=== PATIENT | male | born 1950 | race Caucasian/White ===

== ENCOUNTER → 2018-03-02 14:12 | Outpatient (CLI) | payer MEDICARE, OTHER, SELFPAY ==
--- NOTE | 2018-03-02 14:15 | DI.RAD.S_ITS ---
PROCEDURE: XR CERVICAL SPINE 2V OR 3V INDICATIONS: neck pain and paresthesias TECHNIQUE: 4 view(s) of the cervical spine were acquired. COMPARISON: None. FINDINGS: Bones: No fractures or dislocations to the T1 level. The lateral masses of C1 appear intact on the odontoid view. No suspicious bony lesions. Loss of lordosis which could be related to muscle spasm, rigidity or simply positional. Grade 1 spondylolisthesis C2-C3. Multilevel disc degeneration, moderate to severe at the C6-C7 and C7-T1 levels. Mild multilevel uncovertebral hypertrophy. Soft tissues: No prevertebral soft tissue swelling. Vascular calcifications indicate atherosclerosis. IMPRESSION: Loss of lordosis and multilevel degenerative change. Dictated by: Omega Pinto [facility] Interpreted: Edouard Brito MD on 03/02/2018 at 15:03 Approved by: Edouard Brito M.D. on 03/03/2018 at 10:36
== END ==
PROVIDERS: Family Provider Family Medicine; PCP Family Medicine; Visit Provider Internal Medicine
DX: M54.2 Cervicalgia (principal); R20.2 Paresthesia of skin; M47.892 Other spondylosis, cervical region
CPT/HCPCS: 72040

== ENCOUNTER → 2018-08-08 09:34 | Outpatient (CLI) | payer MEDICARE, OTHER, SELFPAY ==
[2018-08-08 10:18] LABS: Add Manual Diff / Slide Review NO; Basophils Percent Auto 0.6 % (0-2); Hematocrit 47.4 % (41-53); Hemoglobin 16.8 g/dL (13.5-17.5); Lymphocytes Percent Auto 21.5 % (25-40); Mean Corpuscular HGB Conc 35.4 % (30-36); Mean Corpuscular Volume 93.3 fL (80-100); Monocytes Percent Auto 5.8 % (3-14); Neutrophils Absolute Auto 4400 /uL (3000-5900); Neutrophils Percent Auto 70.1 % (50-75); Platelet Count 196 X10^3/uL (150-400); Red Blood Cell Count 5.08 X10^6/uL (4.5-5.9); Red Cell Distribution Width 13.8 % (11.6-14.8); White Blood Cell Count 6.2 X10^3/uL (4.5-11.0)
[2018-08-08 10:31] LABS: Alanine Aminotransferase 49 IU/L (21-72); Albumin 4.3 g/dL (3.5-5.0); Albumin Globulin Ratio 1.5 (1.0-2.8); Alkaline Phosphatase 49 U/L (38-126); Aspartate Aminotransferase 29 IU/L (17-59); BUN Creatinine Ratio 24.3 (6-22); Bilirubin Total 1.2 mg/dL (0.2-1.3); Blood Urea Nitrogen 17 mg/dL (9-20); Calcium 9.3 mg/dL (8.4-10.2); Carbon Dioxide 27 mmol/L (22-32); Chloride 102 mmol/L (98-107); Cholesterol 141 mg/dL (140-199); Estimated Glomerular Filt Rate > 60.0 mL/min (>60); Globulin 2.9 g/dL (1.7-4.1); Glucose 107 mg/dL (80-110); HDL Cholesterol 45 mg/dL (40-60); HEMOLYSIS 21 (0-50); LDL Cholesterol Calculated 78 mg/dL (<100); Potassium 4.2 mmol/L (3.4-5.1); Sodium 142 mmol/L (137-145); Total Protein 7.2 g/dL (6.3-8.2); Triglycerides 92 mg/dL (35-150)
[2018-08-08 10:59] LABS: Prostate Specific Antigen Scrn 1.97 ng/mL (0.1-4.0)
[2018-08-08 11:08] LABS: Thyroid Stimulating Hormone 4.26 uIU/mL (0.47-4.68)
== END ==
PROVIDERS: Family Provider Family Medicine; PCP Family Medicine; Visit Provider Family Medicine
DX: E78.2 Mixed hyperlipidemia (principal); R94.6 Abnormal results of thyroid function studies; Z12.5 Encounter for screening for malignant neoplasm of prostate
CPT/HCPCS: 36415; 80053; 80061; 84443; 85025; G0103

== ENCOUNTER 2019-05-01 09:03 | Day surgery (SDC) | payer MEDICARE, OTHER, SELFPAY ==
--- NOTE | 2019-05-01 | PATH_ITS ---
[facility] Accession Number: [id number] . 01 Material submitted: . esophagus, E-G Junction - GE JUNCTION BIOPSY . 01 Clinical history: . PERSONAL HISTORY OF OTHER DISEASES OF THE DIGESTIVE . 02 Diagnosis: Gastroesophageal Junction, Biopsy: Squamocolumnar junctional mucosa with mild chronic inflammation. Negative for specialized intestinal metaplasia on alcian blue stain. Negative for dysplasia or malignancy. MRV/05/03/2019 . 02 Electronically signed: . Eugene Rivers MD, PhD, Pathologist NPI- [id number] . 01 Gross description: . GE JUNCTION BIOPSY: Received in formalin are multiple fragment(s) of hsu, soft tissue measuring 0.8 x 0.8 x 0.2 cm in aggregate submitted entirely in 1 cassette(s) /CKI /CKI . 02 Microscopic: . An alcian blue stain is performed to evaluate for specialized intestinal metaplasia, and is negative for goblet cells. A control stain shows appropriate reactivity. . 02 Pathologist provided ICD-10: K20.9 . 02 CPT . 547965, [id number] Performed at: 01 [facility] [address], [place], [place] [id number] MD Stevie Santos MD Phone: [phone] Performed at: 02 [facility] [address] [place], [place] [id number] MD Alyssia Mendoza MD Phone: [phone]
[2019-05-01 09:20] VITALS: BMI 38.0
--- NOTE | 2019-05-01 10:51 | P.HP_ITS ---
History of Present Illness History of Present Illness Date Patient Seen: 05/01/19 Time Patient Seen: 10:51 Chief complaint: [id number] EGD Narrative: Patient is gentleman for surveillance EGD. He has a history of Rudolph's esophagus. Last exam was 3 years ago. He had dilatation done at that time. He has had 2 minor episodes since that dilatation of possibly having food feel like it was having a struggle getting through. In generally has no problem at all. Patient History Medical History Rudolph's esophagus (Chronic) Excessive daytime sleepiness (Chronic) GERD (gastroesophageal reflux disease) (Chronic 2009) Hyperlipidemia (Chronic) Impaired glucose regulation (Suspected) Obstructive sleep apnea of adult (Chronic) Peyronie's disease (Chronic) Snoring (Chronic) Surgical History Anesthesia (Resolved) Family History Father Cancer Stroke Grandmother Diabetes mellitus Sister Diabetes mellitus Hypertension Mental health problem Mother No problems noted. Grandfather Prostate disease Social History household members: none Smoking Status: Never smoker Family & Social History Family History Father Cancer Stroke Grandmother Diabetes mellitus Sister Diabetes mellitus Hypertension Mental health problem Mother No problems noted. Grandfather Prostate disease Social History: household members none Tobacco & Substance use: Smoking Status Never smoker Meds Home Medications and Allergies Home Medications Medication Instructions Recorded Confirmed Type acetaminophen 650 mg 1,300 mg PO Q8H PRN #90 tab 03/15/18 02/01/19 Rx tablet,extended release atorvastatin [Lipitor] 10 mg PO HS #90 tab 09/11/18 02/01/19 Rx Resmed Airsense 10 CPAP #1 ea 02/01/19 02/01/19 History Prilosec OTC 20 mg PO DAILY 05/01/19 History alfuzosin 10 mg PO DAILY 05/01/19 05/01/19 History cranberry 2,500 mg PO DAILY 05/01/19 05/01/19 History cyanocobalamin (vitamin B-12) 2,500 mg PO DAILY 05/01/19 05/01/19 History melatonin 5 mg PO BEDTIME 05/01/19 05/01/19 History Allergies Allergy/AdvReac Type Severity Reaction Status Date / Time Penicillins [PENICILLINS] Allergy Severe ANAPHYLAXSI Verified 02/01/19 09:55 S Review of Systems Review of Systems ROS Unobtainable: All systems reviewed & are unremarkable except as noted in HPI and below Exam Narrative Exam Narrative: Pleasant cooperative patient no apparent distress. Lungs are cl ear to auscultation. No rales or rhonchi. Heart regular rate and rhythm no murmur gallop. Abdomen is soft nontender without mass. No obvious hernias. Patient is alert and oriented x3. Assessment & Plan Assessment & Plan narrative: Patient with a history of Rudolph's esophagus. Plan EGD. I have discussed the procedure and rationale including risks of bleeding and perforation. Talked to him about possible dilatation. He appears to understand wishes to proceed.
--- NOTE | 2019-05-01 10:55 | PM.PREOP ---
Pre-operative Note Interval Note History & Physical reviewed/Exam performed by Physician: Yes Changes to H&P: No ASA Class (for procedural sedation): II
[2019-05-01] MEDS: LIDOCAINE 4% SOLN 50 ML 20 ML TOP (11:06)
[2019-05-01] MEDS: fentaNYL 250 MCG/5 ML INJ IV (11:07)
[2019-05-01] MEDS: MIDAZOLAM 5 MG/5 ML VIAL IV (11:07)
--- NOTE | 2019-05-01 11:27 | PM.OP.ENDO ---
Operative Date/Time/Diagnoses Date of procedure: 05/01/19 Time of procedure: 11:28 Pre-op diagnosis: History of Rudolph's esophagus. History of stricture. Post-op diagnosis: same (Schatzki ring) Procedure & Clinicians Study performed: EGD with cold biopsy Same procedure as scheduled: Yes Indications: Surveillance Surgeon: Krishan Marroquin Procedure Notes SCOAP/Timeout: Performed Procedure in detail: The patient had topical anesthetic applied to oropharynx. She was placed in left lateral decubitus position and underwent IV sedation directed by the surgeon consisting of fentanyl and Versed. A bite block was inserted and the scope was advanced through it into the esophagus. The esophagus was unremarkable. GE junction was noted at 40 cm from the incisors. The stomach insufflated well. There were no lesions seen in the body, antrum or at the incisura. The pyloric channel was patent. The duodenum was unremarkable to the 4th part. The scope was brought back into the stomach and retroflexed. The proximal stomach normal in appearance. No evidence of a hiatal hernia. I had the impression that the stomach was somewhat shortened. The scope was straightened and brought out through the esophagus again. Multiple biopsies were taken at the GE junction/Schatzki ring which was located at the GE junction. The scope was removed and the patient tolerated the procedure well. Scope withdrawal time: Not applicable Sedation minutes: 12 Findings: Rduolph's esophagus (History of) and stricture (Schatzki ring) Specimen(s): other (Biopsies near the GE junction) Complications: none Post-procedure Recommendations: EGD in 3 years Follow up: as needed Disposition: PACU
[2019-05-01 11:31] VITALS: BP 123/71; PULSE 51; RESP 16; TEMP 36.3; O2SAT 93
[2019-05-01 11:35] VITALS: BP 132/73; PULSE 59; RESP 13; O2SAT 95
[2019-05-01 11:41] VITALS: BP 132/73; PULSE 59; RESP 12; O2SAT 96
[2019-05-01 11:45] VITALS: BP 114/69; PULSE 95; RESP 12; O2SAT 97
[2019-05-01 12:05] VITALS: BP 118/78; PULSE 54; RESP 16; TEMP 36.2; O2SAT 98
--- NOTE | 2019-05-01 12:09 | SUR.PHASEII ---
Wide awake and desiring discharge home. Dressed self without assistance.
== END 2019-05-01 12:14 | disposition home or self-care (01) ==
PROVIDERS: Family Provider Family Medicine; PCP Family Medicine; Visit Provider Specialist
PROC: 0DJ08ZZ Inspection of Upper Intestinal Tract, Via Natural or Artificial Opening Endoscopic (ICD-10-PCS; CPT 43235; principal; 2019-05-01 11:00)
DX: K21.0 Gastro-esophageal reflux disease with esophagitis (principal); K22.2 Esophageal obstruction; G47.33 Obstructive sleep apnea (adult) (pediatric)
CPT/HCPCS: 43239; 99152; J2250; J3010

== ENCOUNTER → 2019-09-28 07:15 | Outpatient (CLI) | payer MEDICARE, OTHER, SELFPAY ==
[2019-09-28 07:46] LABS: Add Manual Diff / Slide Review NO; Basophils Absolute Auto 0 /uL (0-100); Basophils Percent Auto 0.9 % (0-2); Eosinophils Absolute Auto 100 /uL (0-450); Hematocrit 47.3 % (41-53); Hemoglobin 16.4 g/dL (13.5-17.5); Lymphocytes Absolute Auto 1200 /uL (1100-4500); Lymphocytes Percent Auto 23.7 % (25-40); Mean Corpuscular HGB Conc 34.6 % (30-36); Mean Corpuscular Hemoglobin 32.1 PG (26-34); Mean Corpuscular Volume 92.6 fL (80-100); Monocytes Absolute Auto 300 /uL (0-900); Monocytes Percent Auto 6.3 % (3-14); Neutrophils Absolute Auto 3500 /uL (1500-7000); Neutrophils Percent Auto 67.1 % (50-75); Platelet Count 154 X10^3/uL (150-400); Red Cell Distribution Width 13.6 % (11.6-14.8); White Blood Cell Count 5.2 X10^3/uL (4.5-11.0)
[2019-09-28 08:36] LABS: Alanine Aminotransferase 35 IU/L (<50); Albumin 4.2 g/dL (3.5-5.0); Albumin Globulin Ratio 1.4 (1.0-2.8); Alkaline Phosphatase 52 U/L (38-126); Aspartate Aminotransferase 25 IU/L (17-59); BUN Creatinine Ratio 28.6 (6-22); Blood Urea Nitrogen 20 mg/dL (9-20); Calcium 9.6 mg/dL (8.4-10.2); Carbon Dioxide 24 mmol/L (22-32); Chloride 104 mmol/L (98-107); Cholesterol 127 mg/dL (140-199); Estimated Glomerular Filt Rate > 60.0 mL/min (>60); Globulin 2.9 g/dL (1.7-4.1); Glucose 125 mg/dL (80-110); HDL Cholesterol 34 mg/dL (40-60); LDL Cholesterol Calculated 76 mg/dL (<100); Potassium 4.4 mmol/L (3.4-5.1); Sodium 138 mmol/L (137-145); Total Protein 7.1 g/dL (6.3-8.2); Triglycerides 85 mg/dL (35-150)
[2019-09-28 09:08] LABS: HEMOLYSIS < 15 (0-50); Prostate Specific Antigen Scrn 1.52 ng/mL (0.1-4.0)
== END ==
PROVIDERS: Family Provider Family Medicine; PCP Family Medicine; Visit Provider Family Medicine
DX: E78.2 Mixed hyperlipidemia (principal); Z12.5 Encounter for screening for malignant neoplasm of prostate
CPT/HCPCS: 36415; 80053; 80061; 85025; G0103

== ENCOUNTER → 2020-02-01 13:00 | Outpatient (CLI) | payer MEDICARE, OTHER, SELFPAY ==
--- NOTE | 2020-02-01 13:02 | DI.US.S_ITS ---
PROCEDURE: US PERIPH VENOUS LOW EXTREM RT INDICATIONS: RIGHT LEG SWELLING TECHNIQUE: Real-time imaging, as well as color and pulse Doppler interrogation, were performed of the lower extremity deep veins from the inguinal ligament to the popliteal fossa. COMPARISON: None. FINDINGS: The common femoral, femoral and popliteal veins are normally compressible, and free of intraluminal thrombus. Color and pulse Doppler demonstrate normal phasic intraluminal flow. There is normal augmentation response to distal compression maneuver. There is a prominent fluid collection identified within the popliteal fossa, suggesting a Watkins's cyst. IMPRESSION: No evidence of deep vein thrombosis of the right lower extremity. Dictated by: Wicho Caldwell M.D. on 02/01/2020 at 12:54 Approved by: Wicho Caldwell M.D. on 02/01/2020 at 12:54
== END ==
PROVIDERS: Family Provider Family Medicine; PCP Family Medicine; Referring Provider Family Medicine; Visit Provider Family Medicine
DX: M79.89 Other specified soft tissue disorders (principal)
CPT/HCPCS: 93971

== ENCOUNTER → 2020-05-16 08:04 | Outpatient (CLI) | payer MEDICARE, OTHER, SELFPAY ==
--- NOTE | 2020-05-16 | DI.MRI.S_ITS ---
PROCEDURE: MR KNEE RT WO CON INDICATIONS: Unilateral primary osteoarthritis, right knee TECHNIQUE: Noncontrast sagittal PD fast spin echo and T2 fast spin echo with fat saturation, sagittal 3-D FLASH with fat saturation; coronal T1 spin echo and PD fast spin echo with fat saturation, and axial PD fast spin echo with fat saturation through the knee. COMPARISON: No previous study is available for comparison. FINDINGS: Image quality: Excellent. Menisci: There is complex degenerative tearing and maceration of the body of the medial meniscus extending into the posterior horn with mild extrusion of the meniscal body beyond the femorotibial joint line. The lateral meniscus is intact. Cruciate ligaments: The anterior and posterior cruciate ligaments appear intact. Medial structures: The medial collateral ligament appears intact. The semimembranosus tendon insertions and meniscocapsular junction appear intact. Visualized portions of the pes anserinus tendons appear normal. No abnormal bursal fluid. Lateral structures: The lateral collateral ligament, long and short heads of the biceps femoris tendon appear intact. The popliteus tendon appears intact. No signs of posterolateral corner injury. Iliotibial band appears normal. Anterior structures: The quadriceps and patellar tendons appear intact. Patellar alignment is normal. A mildly shallow trochlear groove is seen with lateral patellar tilting without lateral patellar subluxation. The tibial tubercle-trochlear groove distance is within normal limits. Bones and cartilage: No bone marrow contusions or fractures. Full-thickness cartilage loss is seen in the weight-bearing portion of the medial femorotibial compartment with subchondral edema. Deep cartilage fissuring is seen in the posterior portion of the lateral tibial plateau. There is full-thickness cartilage loss in the inferior portion of the trochlear groove with subchondral osteophyte formation. Joint space: There is a medium-sized joint effusion. A moderate medial popliteal cyst is seen that measures 6.3 cm in superior inferior extent. A 4 mm filling defect anterior to the intercondylar notch most likely represents focal synovial hypertrophy rather than an intra-articular loose body. Nonspecific subcutaneous edema is seen in the prepatellar region. IMPRESSION: 1. Complex degenerative tearing and maceration of the body and posterior horn of the medial meniscus with mild meniscal extrusion. 2. Full-thickness cartilage loss in the weight-bearing portion of the medial femorotibial compartment with subchondral edema. There is also full-thickness cartilage loss in the anterior compartment and deep cartilage fissuring in the lateral compartment. 3. Moderate joint effusion. A 4 mm filling defect anterior to the intercondylar notch may represent focal synovial hypertrophy or a small intra-articular loose body. 4. Moderate medial popliteal cyst. Dictated by: Jose Roberto Roa M.D. on 05/16/2020 at 9:25 Approved by: Jose Roberto Roa M.D. on 05/16/2020 at 9:40
== END ==
PROVIDERS: Family Provider Family Medicine; PCP Family Medicine; Referring Provider Family Medicine; Visit Provider Orthopaedic Surgery
DX: M17.11 Unilateral primary osteoarthritis, right knee (principal); S83.231A Complex tear of medial meniscus, current injury, right knee, initial encounter; M71.21 Synovial cyst of popliteal space [Baker], right knee; M25.461 Effusion, right knee
CPT/HCPCS: 73721

== ENCOUNTER 2020-05-27 11:15 | Outpatient (RCR) | payer MEDICARE, OTHER, SELFPAY ==
--- NOTE | 2020-05-13 17:00 | PT.OPPOC ---
Physical, Occupational & Speech Therapy At [facility] Current Diagnoses Pain in right knee (05/13/20) Stiffness of right hip, not elsewhere classified (05/13/20) Stiffness of right knee, not elsewhere classified (05/13/20) Muscle weakness (generalized) (05/13/20) Pain in right leg (05/13/20) Visit Care Team Role Provider Type Ryan Bryan MD Attending Provider Physician Family Provider Primary Care Provider Referring Provider Specialty: Family Practice Address: [address] [place] [address], [facility] Email: [email or web address] Plan Of Care PT-OP-T Assessment and Plan Start: 05/09/20 19:57 Freq: Status: Active Protocol: Document 05/13/20 12:47 LRN (Rec: 05/13/20 13:42 LRN [id number]) Physical Therapy Assessment Rehab Potential Rehabilitation Potential Excellent Evaluation Complexity Number of Personal Factors/Comorbidities 1-2 Number of Body Systems Impaired 4 or More Clinical Presentation at Evaluation Evolving Impairments Impairments Activity Tolerance,Functional Mobility,Gait,Pain,ROM, Strength Goals Four Impairment Decreased R knee strength due to pain (knee flex 4/5). Short Term Goal (STG) Decrease R knee stiffness and pain (intermittently rated 4/ 10). STG Duration 06/27/20 Elephant Tamer Goal (LTG) Increase R knee strength to improve pt's confidence in using his motorcycle. LTG Duration 08/11/20 Three Impairment Decreased R hip rotation mobility(in deg's: ER 20 R, 75 L; PSLR 70 R, 87 L) Short Term Goal (STG) Increase R hip ER to 35 deg's to improve ability to don shoes in sitting with minimal stiffness and pain. STG Duration 06/27/20 Longterm Goal (LTG) Increase R hip rotation to 45- 50 deg's with pt able to wash his feet in the shower with minimal stiffness and pain. LTG Duration 08/11/20 Two Impairment Decreased R knee AROM in supine (5-87 deg's; left is 3- 122 deg's). Short Term Goal (STG) Improve R knee AROM STG Duration 06/27/20 Elephant Tamer Goal (LTG) Improve pt R knee AROM to be able to go up/down ladders with minimal stiffness and pain. LTG Duration 08/11/20 One Impairment Lacks appropriate self care HEP Longterm Goal (LTG) Pt will be independent with a self care HEP. LTG Duration 08/11/20 Assessment Summary Assessment Pt presents with R anteromedial tibial pain and medial tibial plateau pain that is intermittent in nature , most noticeable with rotation movements but also reported with activity. The pt continues to be active, working through his pain; therefore his LE strength is good, with weakness primarily in his R hip rotators and knee flexors. He is limited in R knee and hip mobility due to pain and stiffness. He has soft tissue dysfunction of pain and generalized swelling in his R knee, ankle (lateral) and foot (cephalad surface) as expected with a meniscus injury. He is positive for MCL strain. The pt will benefit from skilled physical therapy for ROM, strengthening , aerobic conditioning, and balance training and HEP as he awaits results of pending MRI for internal derangement of the R knee. Physical Therapy Plan Frequency and Duration Frequency of Treatment 2x/Week Plan of Care Start Date 05/13/20 Plan of Care End Date 08/11/20 Therapeutic Interventions Therapeutic Interventions Home Exercise Program Next Visit Focus/Plan Next Note Type Treatment Note Next Visit Plan Modalities and STM to decrease swelling, R knee ROM and strengthening, R hip rotation ROM exercises and ER strengthening, progression onto a self care HEP. Low resistance aerobic strengthening (note wgt 268#) appropriate for meniscus injury. Check lumbar spine and initiate core strengthening. End CP if needed. Plan of Care Dates Plan of Care Start Date 05/13/20 Plan of Care End Date 08/11/20 Electronically Signed by: Fatmata Self, PT 05/14/20 0928 Please Sign and Return: I have reviewed this Plan of Care and certify that the skilled therapy services above are required to meet the patient?s needs. Physician Signature Date Printed Name and Credentials Clinical Instructor Signature Printed Name and Credentials
--- NOTE | 2020-05-13 18:00 | PT.OIE ---
Current Diagnoses Pain in right knee (05/13/20) Stiffness of right hip, not elsewhere classified (05/13/20) Stiffness of right knee, not elsewhere classified (05/13/20) Muscle weakness (generalized) (05/13/20) Pain in right leg (05/13/20) Past Medical History (Last Reviewed 01/31/20 @ 22:01 by ISH Fowler) Rudolph's esophagus (Chronic) Excessive daytime sleepiness (Chronic) GERD (gastroesophageal reflux disease) (Chronic 2009) Hyperlipidemia (Chronic) Impaired glucose regulation (Suspected) Obstructive sleep apnea of adult (Chronic) Peyronie's disease (Chronic) Snoring (Chronic) Past Surgical History (Last Reviewed 01/31/20 @ 22:01 by ISH Fowler) Anesthesia (Resolved) Visit Care Team Role Provider Type Ryan Bryan MD Attending Provider Physician Family Provider Primary Care Provider Referring Provider Specialty: [facility] Practice Address: [address] [place] [address] Email: [email or web address] Physical Therapy Initial Evaluation PT-OP-A Visit Information Start: 05/09/20 19:57 Freq: Status: Active Protocol: Document 05/13/20 12:47 LRN (Rec: 05/13/20 13:42 LRN [id number]) Out-Patient Physical Therapy Visit Information Visit Information Visit Type Initial Evaluation Visit Start Time 12:47 Visit Stop Time 13:42 Total Visit Minutes 55 Visit Number 1 Evaluation Information Evaluation Date 05/13/20 Precautions Precautions History of Meniscus injury ( see below) PT-OP-B Current Condition Start: 05/09/20 19:57 Freq: Status: Active Protocol: Document 05/13/20 12:47 LRN (Rec: 05/13/20 13:42 LRN [id number]) Current Condition History of Current Condition Onset Date 09/2019 Current Complaints Stiff in R thigh, can't cross R ankle over L knee History of Current Condition Meniscus injury of R knee 05/11 when he blacked out and woke up injured. He had surgery with good results ( also had R rotator cuff surgery). 2nd surgery ~5 yrs ago, and now contemplating a 3rd surgery after injury 2019 (slipped in snow and knee bent backward). He had an a cortisone injection into the R knee 2 month ago that he reports was somewhat helpful. Pain is now intermittent with moving sideways or with rotation at the R knee. Able to do painting on a ladder and does one step at time to ascend/descend. Pain sometimes at Medial inferior tibial plateau. Prior Treatments and Tests X-ray shows no bony changes. Future Testing and Treatments Planned MRI scheduled 05/16/20 at [facility]. F/U visit with Dr. Mari at 8:20a, before PT visit. Developmental History Developmental History Tear of L lateral quadriceps ( 2 yrs ago); therefore R leg was the stronger leg. Treatment Goals Patient/Caregiver Goals Pt goal is to be able to do without pain and stiffness: 1) Ride his motorcycle, 2) Go Up/down a ladder. 3) Put shoes on and wash feet in shower. Prior Functional Status Baseline Function- ADL's Independent Baseline Function- Mobility Independent Baseline Function- Gait Walk daily around [place] (2-3 miles). Baseline Function- Other Able to kneel on the ground. Current Functional Impairments (Reported) Functional Limitations- ADL's Impaired dressing: Putting socks on & donning pants. Difficulty with sit to stand. Functional Limitations- Mobility/Gait Walks daily around [place] (2- 3 miles) even with pain, some days are easier than others. Sometimes limps. Functional Limitations- Work/School Retired from [employer]. Functional Limitations- Recreation/ Limited riding motorcycle: Hobbies riding now 2000 miles in past 6 mos vs 1000/miles per week. Golfs a couple times a week. Functional Limitations- Other Difficulty kneeling on the ground. Personal Factors Other Personal Factors That May Effect Per Medical review: BMI 37-37 Therapy/Recovery .9 (wgt 268# at 5'10) PT-OP-C Subjective Start: 05/09/20 19:57 Freq: Status: Active Protocol: Document 05/13/20 12:47 LRN (Rec: 05/13/20 13:42 LRN [id number]) Patient Questionnaires Lower Extremity Functional Scale LEFS Score 45 LEFS Impairment 40 to 59% Impaired (Score 32- 47) OP-PT Pain Assessment Pain Assessment Grid Paper Pain Assessment Grid Completed Yes Location Right Thigh Pain Location Details Anterior and lateral R thigh Intensity 4 Scale Used Numeric (0 - 10) Description Aching,Tightness R knee Pain Location Details Primarily around Medial knee Intensity 4 Scale Used Numeric (0 - 10) Description Aching,Sharp Description- Other Stand wrong way pain is sharp. Frequency Intermittent Pain Duration Variable Radiating Location Down medial lower leg. Pain Aggravating Factors Changing Position,Activity Other Pain Alleviating Factors Home TENS machine (electrodes @ pain locations) PT-OP-G Mobility & Gait Start: 05/09/20 19:57 Freq: Status: Active Protocol: Document 05/13/20 12:47 LRN (Rec: 05/14/20 09:17 LRN [id number]) OP Gait Assessment Gait Gait Assistance Required: Independent Assistive Devices Assistive Device None Gait Deviations General Gait Pattern Ataxic,Wide Based Gait PT-OP-H Neuro Start: 05/09/20 19:57 Freq: Status: Active Protocol: Document 05/13/20 12:47 LRN (Rec: 05/14/20 09:17 LRN [id number]) Sensation Evaluation Comments Summary Comments R foot: Sensation is intact to soft touch. Pain elicited with soft touch on the top and lateral side of the R foot. Deep Tendon Reflex & Clonus Assessment Deep Tendon Reflex Left Achilles Deep Tendon Reflex 1+ Diminished Bilateral Patellar Deep Tendon Reflex 3+ Normal But Brisk PT-OP-J Posture/Palpation/Skin Start: 05/09/20 19:57 Freq: Status: Active Protocol: Document 05/13/20 12:47 LRN (Rec: 05/14/20 09:17 LRN [id number]) Posture Evaluation Comments Posture Comments In standing: Wide based stance, hips in ER, valgus of ankles with L worse than R. Elevated L shoulder, mild forward head. Atrophy visible in L lower leg. Palpation Assessment Location R knee Palpation Location R superolateral to patella and generally in the knee Palpation Findings Edema,Tenderness PT-OP-K Range of Motion Start: 05/09/20 19:57 Freq: Status: Active Protocol: Document 05/13/20 12:47 LRN (Rec: 05/14/20 09:17 LRN [id number]) Hip Goniometric Range of Motion Hip Right Passive Hip ROM WFL No Testing Position Supine Internal Rotation 20 External Rotation 35 Left Passive Testing Position Supine Internal Rotation 10 External Rotation 75 Right Active Testing Position Supine Flexion w/Knee Flexed 70 Abduction 35 Left Active Testing Position Supine Flexion w/Knee Flexed 85 Abduction 37 Knee Goniometric Range of Motion Knee Right Knee ROM WFL No Patient Position Supine Flexion Active (degrees) 87 Extension Active (degrees) 5 Left Knee ROM WFL Yes Patient Position Supine Flexion Active (degrees) 122 Extension Active (degrees) 3 PT-OP-M Strength Start: 05/09/20 19:57 Freq: Status: Active Protocol: Document 05/13/20 12:47 LRN (Rec: 05/14/20 09:17 LRN [id number]) Hip Strength Hip Manual Muscle Testing Right External Rotation 3+ Fair+ Comments Strength is 5/5 within available ROM except as indicated above. Left Comments Strength is 5/5. Knee Strength Knee Manual Muscle Testing Right Flexion (S2) 4 Good Extension (L3) 5 Normal Left Comments Strength is normal: 5/5 PT-OP-Q Treatments Start: 05/09/20 19:57 Freq: Status: Active Protocol: Document 05/13/20 12:47 LRN (Rec: 05/14/20 09:17 LRN [id number]) Self-Care/Home Management Treatment Education Other Education Discussed results of evaluation. Reviewed general edema management. Activities Self-Care/Home Management Activities Pt chose to use cryotherapy at home at end of session. PT-OP-T Assessment and Plan Start: 05/09/20 19:57 Freq: Status: Active Protocol: Document 05/13/20 12:47 LRN (Rec: 05/13/20 13:42 LRN [id number]) Physical Therapy Assessment Rehab Potential Rehabilitation Potential Excellent Evaluation Complexity Number of Personal Factors/Comorbidities 1-2 Number of Body Systems Impaired 4 or More Clinical Presentation at Evaluation Evolving Impairments Impairments Activity Tolerance,Functional Mobility,Gait,Pain,ROM, Strength Goals Four Impairment Decreased R knee strength due to pain (knee flex 4/5). Short Term Goal (STG) Decrease R knee stiffness and pain (intermittently rated 4/ 10). STG Duration 06/27/20 Dental Front Office Assistant Goal (LTG) Increase R knee strength to improve pt's confidence in using his motorcycle. LTG Duration 08/11/20 Three Impairment Decreased R hip rotation mobility(in deg's: ER 20 R, 75 L; PSLR 70 R, 87 L) Short Term Goal (STG) Increase R hip ER to 35 deg's to improve ability to don shoes in sitting with minimal stiffness and pain. STG Duration 06/27/20 Usp Goal (LTG) Increase R hip rotation to 45- 50 deg's with pt able to wash his feet in the shower with minimal stiffness and pain. LTG Duration 08/11/20 Two Impairment Decreased R knee AROM in supine (5-87 deg's; left is 3- 122 deg's). Short Term Goal (STG) Improve R knee AROM STG Duration 06/27/20 Dental Front Office Assistant Goal (LTG) Improve pt R knee AROM to be able to go up/down ladders with minimal stiffness and pain. LTG Duration 08/11/20 One Impairment Lacks appropriate self care HEP Usp Goal (LTG) Pt will be independent with a self care HEP. LTG Duration 08/11/20 Assessment Summary Assessment Pt presents with R anteromedial tibial pain and medial tibial plateau pain that is intermittent in nature , most noticeable with rotation movements but also reported with activity. The pt continues to be active, working through his pain; therefore his LE strength is good, with weakness primarily in his R hip rotators and knee flexors. He is limited in R knee and hip mobility due to pain and stiffness. He has soft tissue dysfunction of pain and generalized swelling in his R knee, ankle (lateral) and foot (cephalad surface) as expected with a meniscus injury. He is positive for MCL strain. The pt will benefit from skilled physical therapy for ROM, strengthening , aerobic conditioning, and balance training and HEP as he awaits results of pending MRI for internal derangement of the R knee. Physical Therapy Plan Frequency and Duration Frequency of Treatment 2x/Week Plan of Care Start Date 05/13/20 Plan of Care End Date 08/11/20 Therapeutic Interventions Therapeutic Interventions Home Exercise Program Next Visit Focus/Plan Next Note Type Treatment Note Next Visit Plan Modalities and STM to decrease swelling, R knee ROM and strengthening, R hip rotation ROM exercises and ER strengthening, progression onto a self care HEP. Low resistance aerobic strengthening (note wgt 268#) appropriate for meniscus injury. Check lumbar spine and initiate core strengthening. End CP if needed.
--- NOTE | 2020-05-15 13:27 | PT.OTN ---
Current Diagnoses Pain in right knee (05/15/20) Stiffness of right hip, not elsewhere classified (05/15/20) Stiffness of right knee, not elsewhere classified (05/15/20) Muscle weakness (generalized) (05/15/20) Pain in right leg (05/15/20) Physical Therapy Treatment Note PT-OP-A Visit Information Start: 05/09/20 19:57 Freq: Status: Active Protocol: Document 05/15/20 11:21 LRN (Rec: 05/15/20 12:02 LRN [id number]) Out-Patient Physical Therapy Visit Information Visit Information Visit Type Treatment Note Visit Start Time 11:21 Visit Stop Time 12:08 Total Visit Minutes 47 Visit Number 2 Evaluation Information Evaluation Date 05/13/20 Precautions Precautions History of Meniscus injury ( current condition) PT-OP-B Current Condition Start: 05/09/20 19:57 Freq: Status: Active Protocol: Document 05/13/20 12:47 LRN (Rec: 05/13/20 13:42 LRN [id number]) Current Condition History of Current Condition Onset Date 09/2019 Current Complaints Stiff in R thigh, can't cross R ankle over L knee History of Current Condition Meniscus injury of R knee 05/11 when he blacked out and woke up injured. He had surgery with good results ( also had R rotator cuff surgery). 2nd surgery ~5 yrs ago, and now contemplating a 3rd surgery after injury 2019 (slipped in snow and knee bent backward). He had an a cortisone injection into the R knee 2 month ago that he reports was somewhat helpful. Pain is now intermittent with moving sideways or with rotation at the R knee. Able to do painting on a ladder and does one step at time to ascend/descend. Pain sometimes at Medial inferior tibial plateau. Prior Treatments and Tests X-ray shows no bony changes. Future Testing and Treatments Planned MRI scheduled 05/16/20 at [facility]. F/U visit with Dr. Mari at 8:20a, before PT visit. Developmental History Developmental History Tear of L lateral quadriceps ( 2 yrs ago); therefore R leg was the stronger leg. Treatment Goals Patient/Caregiver Goals Pt goal is to be able to do without pain and stiffness: 1) Ride his motorcycle, 2) Go Up/down a ladder. 3) Put shoes on and wash feet in shower. Prior Functional Status Baseline Function- ADL's Independent Baseline Function- Mobility Independent Baseline Function- Gait Walk daily around [facility] (2-3 miles). Baseline Function- Other Able to kneel on the ground. Current Functional Impairments (Reported) Functional Limitations- ADL's Impaired dressing: Putting socks on & donning pants. Difficulty with sit to stand. Functional Limitations- Mobility/Gait Walks daily around [facility] (2- 3 miles) even with pain, some days are easier than others. Sometimes limps. Functional Limitations- Work/School Retired from [email or web address]. Functional Limitations- Recreation/ Limited riding motorcycle: Hobbies riding now 2000 miles in past 6 mos vs 1000/miles per week. Golfs a couple times a week. Functional Limitations- Other Difficulty kneeling on the ground. Personal Factors Other Personal Factors That May Effect Per Medical review: BMI 37-37 Therapy/Recovery .9 (wgt 268# at 5'10) PT-OP-C Subjective Start: 05/09/20 19:57 Freq: Status: Active Protocol: Document 05/15/20 11:21 LRN (Rec: 05/15/20 12:02 LRN [id number]) OP-PT Subjective Patient Comments Patient Comments States the R knee has been hurting more since initial eval, but today felt better. Pain R knee rated 2/10. States he does recumbent bike at home 30-35 minutes. PT-OP-G Mobility & Gait Start: 05/09/20 19:57 Freq: Status: Active Protocol: Document 05/13/20 12:47 LRN (Rec: 05/14/20 09:17 LRN [id number]) OP Gait Assessment Gait Gait Assistance Required: Independent Assistive Devices Assistive Device None Gait Deviations General Gait Pattern Ataxic,Wide Based Gait PT-OP-H Neuro Start: 05/09/20 19:57 Freq: Status: Active Protocol: Document 05/13/20 12:47 LRN (Rec: 05/14/20 09:17 LRN [id number]) Sensation Evaluation Comments Summary Comments R foot: Sensation is intact to soft touch. Pain elicited with soft touch on the top and lateral side of the R foot. Deep Tendon Reflex & Clonus Assessment Deep Tendon Reflex Left Achilles Deep Tendon Reflex 1+ Diminished Bilateral Patellar Deep Tendon Reflex 3+ Normal But Brisk PT-OP-J Posture/Palpation/Skin Start: 05/09/20 19:57 Freq: Status: Active Protocol: Document 05/13/20 12:47 LRN (Rec: 05/14/20 09:17 LRN [id number]) Posture Evaluation Comments Posture Comments In standing: Wide based stance, hips in ER, valgus of ankles with L worse than R. Elevated L shoulder, mild forward head. Atrophy visible in L lower leg. Palpation Assessment Location R knee Palpation Location R superolateral to patella and generally in the knee Palpation Findings Edema,Tenderness PT-OP-K Range of Motion Start: 05/09/20 19:57 Freq: Status: Active Protocol: Document 05/13/20 12:47 LRN (Rec: 05/14/20 09:17 LRN [id number]) Hip Goniometric Range of Motion Hip Right Passive Hip ROM WFL No Testing Position Supine Internal Rotation 20 External Rotation 35 Left Passive Testing Position Supine Internal Rotation 10 External Rotation 75 Right Active Testing Position Supine Flexion w/Knee Flexed 70 Abduction 35 Left Active Testing Position Supine Flexion w/Knee Flexed 85 Abduction 37 Knee Goniometric Range of Motion Knee Right Knee ROM WFL No Patient Position Supine Flexion Active (degrees) 87 Extension Active (degrees) 5 Left Knee ROM WFL Yes Patient Position Supine Flexion Active (degrees) 122 Extension Active (degrees) 3 PT-OP-M Strength Start: 05/09/20 19:57 Freq: Status: Active Protocol: Document 05/13/20 12:47 LRN (Rec: 05/14/20 09:17 LRN [id number]) Hip Strength Hip Manual Muscle Testing Right External Rotation 3+ Fair+ Comments Strength is 5/5 within available ROM except as indicated above. Left Comments Strength is 5/5. Knee Strength Knee Manual Muscle Testing Right Flexion (S2) 4 Good Extension (L3) 5 Normal Left Comments Strength is normal: 5/5 PT-OP-Q Treatments Start: 05/09/20 19:57 Freq: Status: Active Protocol: Document 05/15/20 11:21 LRN (Rec: 05/15/20 12:02 LRN [id number]) Cardio Equipment Recumbent Bicycle Duration (Minutes) 8 Resistance 0 Seat Position 11 Therapeutic Exercises Supine Exercises Hip ER/IR Supine Exercise Name Hip ER/IR stretcing - BKKFO Reps/Minutes 3' R knee AROM Supine Exercise Name R knee AROM Side right Equipment Used T-Ball, belt Reps/Minutes 10 hold both directions - 5' PT-OP-R Modalities Start: 05/09/20 19:57 Freq: Status: Active Protocol: Document 05/15/20 11:21 LRN (Rec: 05/15/20 12:02 LRN [id number]) Electric Stimulation Electric Stimulation Interferential Current (IFC) Body Location R knee Duration (Minutes) 15 Intensity 15 Patient Position Hooklying Comments Legs on bolster Ultrasound Therapy Treatment R anterolateral knee Treatment Duration (minutes) 8 Patient Position Hooklying Frequency Setting (mHz) 1 Mode Setting Pulsed Duty Cycle 50% Intensity Setting (w/cm2) 1.0 Comments US to R anterolateral knee and medial joint line. PT-OP-T Assessment and Plan Start: 05/09/20 19:57 Freq: Status: Active Protocol: Document 05/15/20 11:21 LRN (Rec: 05/15/20 12:02 LRN [id number]) Physical Therapy Assessment Goals Four Impairment Decreased R knee strength due to pain (knee flex 4/5). Short Term Goal (STG) Decrease R knee stiffness and pain (intermittently rated 4/ 10). STG Duration 06/27/20 Nursing Home Goal (LTG) Increase R knee strength to improve pt's confidence in using his motorcycle. LTG Duration 08/11/20 Three Impairment Decreased R hip rotation mobility(in deg's: ER 20 R, 75 L; PSLR 70 R, 87 L) Short Term Goal (STG) Increase R hip ER to 35 deg's to improve ability to don shoes in sitting with minimal stiffness and pain. STG Duration 06/27/20 Nursing Home Goal (LTG) Increase R hip rotation to 45- 50 deg's with pt able to wash his feet in the shower with minimal stiffness and pain. LTG Duration 08/11/20 Two Impairment Decreased R knee AROM in supine (5-87 deg's; left is 3- 122 deg's). Short Term Goal (STG) Improve R knee AROM STG Duration 06/27/20 [employer] Goal (LTG) Improve pt R knee AROM to be able to go up/down ladders with minimal stiffness and pain. LTG Duration 08/11/20 One Impairment Lacks appropriate self care HEP Nursing Home Goal (LTG) Pt will be independent with a self care HEP. LTG Duration 08/11/20 Progress Towards Goals Progress Comments Pt tolerated ex bike activity and stretching afterwards with good tolerance. Assessment Summary Assessment No change with R knee pain after ex bike. Pt is sensitive to R knee flexion stretching. Physical Therapy Plan Frequency and Duration Frequency of Treatment 2x/Week Plan of Care Start Date 05/13/20 Plan of Care End Date 08/11/20 Next Visit Focus/Plan Next Note Type Treatment Note Next Visit Plan Assess response to: Modalities . STM to decrease swelling, R knee ROM and strengthening, R hip rotation ROM exercises and ER strengthening, progression onto a self care HEP. Low resistance aerobic strengthening (note wgt 268#) appropriate for meniscus injury. Check lumbar spine and initiate core strengthening. End CP if needed.
--- NOTE | 2020-05-20 12:19 | PT.OTN ---
Current Diagnoses Pain in right knee (05/20/20) Stiffness of right hip, not elsewhere classified (05/20/20) Stiffness of right knee, not elsewhere classified (05/20/20) Muscle weakness (generalized) (05/20/20) Pain in right leg (05/20/20) Physical Therapy Treatment Note PT-OP-A Visit Information Start: 05/09/20 19:57 Freq: Status: Active Protocol: Document 05/20/20 11:24 LRN (Rec: 05/20/20 12:13 LRN [id number]) Out-Patient Physical Therapy Visit Information Visit Information Visit Type Treatment Note Visit Start Time 11:24 Visit Stop Time 12:12 Total Visit Minutes 48 Visit Number 3 Evaluation Information Evaluation Date 05/13/20 Precautions Precautions History of Meniscus injury ( current condition) PT-OP-B Current Condition Start: 05/09/20 19:57 Freq: Status: Active Protocol: Document 05/20/20 11:24 LRN (Rec: 05/20/20 12:16 LRN [id number]) Current Condition History of Current Condition Onset Date 09/2019 Current Complaints Stiff in R thigh, can't cross R ankle over L knee History of Current Condition Meniscus injury of R knee 05/11 when he blacked out and woke up injured. He had surgery with good results ( also had R rotator cuff surgery). 2nd surgery ~5 yrs ago, and now contemplating a 3rd surgery after injury 2019 (slipped in snow and knee bent backward). He had an a cortisone injection into the R knee 2 month ago that he reports was somewhat helpful. Pain is now intermittent with moving sideways or with rotation at the R knee. Able to do painting on a ladder and does one step at time to ascend/descend. Pain sometimes at Medial inferior tibial plateau. Prior Treatments and Tests X-ray shows no bony changes. MRI report (05/16/20) indicates : Moderate medial popliteal cyst. Complex degenerative tearing and maceration of the body and posterior horn of the medial meniscus with mild meniscal extrusion. Full thickness cartilage loss the medial femorotibial compartment with subchondral edema. There is also full- thickness cartilage loss in the anterior compartment and deep cartilage fissuring in the lateral compartment. Future Testing and Treatments Planned MRI scheduled 05/16/20 at [facility]. F/U visit with Dr. Mari at 8:20a, before PT visit. PT-OP-C Subjective Start: 05/09/20 19:57 Freq: Status: Active Protocol: Document 05/20/20 11:24 LRN (Rec: 05/20/20 12:13 LRN [id number]) OP-PT Subjective Patient Comments Patient Comments [place] was very helpful and EStim was helpful. Sore after left her, but the next day he felt really good. Over the weekend did a lot work on her DA's yard so was very sore. Today walked around [facility] and was very painful. PT-OP-G Mobility & Gait Start: 05/09/20 19:57 Freq: Status: Active Protocol: Document 05/13/20 12:47 LRN (Rec: 05/14/20 09:17 LRN [id number]) OP Gait Assessment Gait Gait Assistance Required: Independent Assistive Devices Assistive Device None Gait Deviations General Gait Pattern Ataxic,Wide Based Gait PT-OP-H Neuro Start: 05/09/20 19:57 Freq: Status: Active Protocol: Document 05/13/20 12:47 LRN (Rec: 05/14/20 09:17 LRN [id number]) Sensation Evaluation Comments Summary Comments R foot: Sensation is intact to soft touch. Pain elicited with soft touch on the top and lateral side of the R foot. Deep Tendon Reflex & Clonus Assessment Deep Tendon Reflex Left Achilles Deep Tendon Reflex 1+ Diminished Bilateral Patellar Deep Tendon Reflex 3+ Normal But Brisk PT-OP-J Posture/Palpation/Skin Start: 05/09/20 19:57 Freq: Status: Active Protocol: Document 05/13/20 12:47 LRN (Rec: 05/14/20 09:17 LRN [id number]) Posture Evaluation Comments Posture Comments In standing: Wide based stance, hips in ER, valgus of ankles with L worse than R. Elevated L shoulder, mild forward head. Atrophy visible in L lower leg. Palpation Assessment Location R knee Palpation Location R superolateral to patella and generally in the knee Palpation Findings Edema,Tenderness PT-OP-K Range of Motion Start: 05/09/20 19:57 Freq: Status: Active Protocol: Document 05/13/20 12:47 LRN (Rec: 05/14/20 09:17 LRN [id number]) Hip Goniometric Range of Motion Hip Right Passive Hip ROM WFL No Testing Position Supine Internal Rotation 20 External Rotation 35 Left Passive Testing Position Supine Internal Rotation 10 External Rotation 75 Right Active Testing Position Supine Flexion w/Knee Flexed 70 Abduction 35 Left Active Testing Position Supine Flexion w/Knee Flexed 85 Abduction 37 Knee Goniometric Range of Motion Knee Right Knee ROM WFL No Patient Position Supine Flexion Active (degrees) 87 Extension Active (degrees) 5 Left Knee ROM WFL Yes Patient Position Supine Flexion Active (degrees) 122 Extension Active (degrees) 3 PT-OP-M Strength Start: 05/09/20 19:57 Freq: Status: Active Protocol: Document 05/13/20 12:47 LRN (Rec: 05/14/20 09:17 LRN [id number]) Hip Strength Hip Manual Muscle Testing Right External Rotation 3+ Fair+ Comments Strength is 5/5 within available ROM except as indicated above. Left Comments Strength is 5/5. Knee Strength Knee Manual Muscle Testing Right Flexion (S2) 4 Good Extension (L3) 5 Normal Left Comments Strength is normal: 5/5 PT-OP-Q Treatments Start: 05/09/20 19:57 Freq: Status: Active Protocol: Document 05/20/20 11:24 LRN (Rec: 05/20/20 12:13 LRN [id number]) Cardio Equipment Recumbent Stepper (Sci-Fit) Duration (Minutes) 8 Resistance 7 Seat Position 14 Therapeutic Exercises Supine Exercises Quad set Supine Exercise Name Quad set w/traction. Hip ER/IR Supine Exercise Name Hip ER/IR stretcing - BKKFO Reps/Minutes 3' R knee AROM Supine Exercise Name R knee AROM Side right Equipment Used T-Ball, belt Reps/Minutes 10 hold both directions - 5' PT-OP-R Modalities Start: 05/09/20 19:57 Freq: Status: Active Protocol: Document 05/20/20 11:24 LRN (Rec: 05/20/20 12:13 LRN [id number]) Electric Stimulation Electric Stimulation Interferential Current (IFC) Body Location R knee Duration (Minutes) 10 Intensity 15 Patient Position Hooklying Combined With Heat/Cold Cold Pack Comments Legs on bolster Ultrasound Therapy Treatment R anterolateral knee Treatment Duration (minutes) 8 Patient Position Hooklying Frequency Setting (mHz) 1 Mode Setting Pulsed Duty Cycle 50% Intensity Setting (w/cm2) 1.0 Comments US to R anterolateral knee and medial joint line. PT-OP-T Assessment and Plan Start: 05/09/20 19:57 Freq: Status: Active Protocol: Document 05/20/20 11:24 LRN (Rec: 05/20/20 12:13 LRN [id number]) Physical Therapy Assessment Goals Four Impairment Decreased R knee strength due to pain (knee flex 4/5). Short Term Goal (STG) Decrease R knee stiffness and pain (intermittently rated 4/ 10). STG Duration 06/27/20 Group Home Goal (LTG) Increase R knee strength to improve pt's confidence in using his motorcycle. LTG Duration 08/11/20 Three Impairment Decreased R hip rotation mobility(in deg's: ER 20 R, 75 L; PSLR 70 R, 87 L) Short Term Goal (STG) Increase R hip ER to 35 deg's to improve ability to don shoes in sitting with minimal stiffness and pain. STG Duration 06/27/20 Group Home Goal (LTG) Increase R hip rotation to 45- 50 deg's with pt able to wash his feet in the shower with minimal stiffness and pain. LTG Duration 08/11/20 Two Impairment Decreased R knee AROM in supine (5-87 deg's; left is 3- 122 deg's). Short Term Goal (STG) Improve R knee AROM STG Duration 06/27/20 Group Home Goal (LTG) Improve pt R knee AROM to be able to go up/down ladders with minimal stiffness and pain. LTG Duration 08/11/20 One Impairment Lacks appropriate self care HEP Group Home Goal (LTG) Pt will be independent with a self care HEP. LTG Duration 08/11/20 Assessment Summary Assessment Decreased tolerance to ex. Pt is too aggressive with activities and exercise. He responds postively to US & EStim. MRI reports indicate: Moderate medial popliteal cyst. Complex degenerative tearing and maceration of the body and posterior horn of the medial meniscus with mild meniscal extrusion. Physical Therapy Plan Frequency and Duration Frequency of Treatment 2x/Week Plan of Care Start Date 05/13/20 Plan of Care End Date 08/11/20 Next Visit Focus/Plan Next Note Type Treatment Note Next Visit Plan Check lumbar spine and initiate core strengthening. STM to decrease swelling, R knee ROM and strengthening, R hip rotation ROM exercises and ER strengthening, progression onto a self care HEP. Low resistance aerobic strengthening (note wgt 268#) appropriate for meniscus injury. End CP if needed.
--- NOTE | 2020-05-22 12:17 | PT.OTN ---
Current Diagnoses Pain in right knee (05/22/20) Stiffness of right hip, not elsewhere classified (05/22/20) Stiffness of right knee, not elsewhere classified (05/22/20) Muscle weakness (generalized) (05/22/20) Pain in right leg (05/22/20) Physical Therapy Treatment Note PT-OP-A Visit Information Start: 05/09/20 19:57 Freq: Status: Active Protocol: Document 05/22/20 11:18 LRN (Rec: 05/22/20 12:15 LRN [id number]) Out-Patient Physical Therapy Visit Information Visit Information Visit Type Treatment Note Visit Start Time 11:18 Visit Stop Time 12:17 Total Visit Minutes 59 Visit Number 4 Evaluation Information Evaluation Date 05/13/20 Precautions Precautions History of Meniscus injury ( current condition) PT-OP-B Current Condition Start: 05/09/20 19:57 Freq: Status: Active Protocol: Document 05/20/20 11:24 LRN (Rec: 05/20/20 12:16 LRN [id number]) Current Condition History of Current Condition Onset Date 09/2019 Current Complaints Stiff in R thigh, can't cross R ankle over L knee History of Current Condition Meniscus injury of R knee 05/11 when he blacked out and woke up injured. He had surgery with good results ( also had R rotator cuff surgery). 2nd surgery ~5 yrs ago, and now contemplating a 3rd surgery after injury 2019 (slipped in snow and knee bent backward). He had an a cortisone injection into the R knee 2 month ago that he reports was somewhat helpful. Pain is now intermittent with moving sideways or with rotation at the R knee. Able to do painting on a ladder and does one step at time to ascend/descend. Pain sometimes at Medial inferior tibial plateau. Prior Treatments and Tests X-ray shows no bony changes. MRI report (05/16/20) indicates : Moderate medial popliteal cyst. Complex degenerative tearing and maceration of the body and posterior horn of the medial meniscus with mild meniscal extrusion. Full thickness cartilage loss the medial femorotibial compartment with subchondral edema. There is also full- thickness cartilage loss in the anterior compartment and deep cartilage fissuring in the lateral compartment. Future Testing and Treatments Planned MRI scheduled 05/16/20 at [facility]. F/U visit with Dr. Mari at 8:20a, before PT visit. PT-OP-C Subjective Start: 05/09/20 19:57 Freq: Status: Active Protocol: Document 05/22/20 11:18 LRN (Rec: 05/22/20 12:15 LRN [id number]) OP-PT Subjective Patient Comments Patient Comments States he saw Dr. Mari this AM and was decided that he should have a partial TKA. Today his R knee is starting to be very tender. Will see Dr. Martin 06/12/20 for recommendation on TKA vs partial TKA. PT-OP-G Mobility & Gait Start: 05/09/20 19:57 Freq: Status: Active Protocol: Document 05/13/20 12:47 LRN (Rec: 05/14/20 09:17 LRN [id number]) OP Gait Assessment Gait Gait Assistance Required: Independent Assistive Devices Assistive Device None Gait Deviations General Gait Pattern Ataxic,Wide Based Gait PT-OP-H Neuro Start: 05/09/20 19:57 Freq: Status: Active Protocol: Document 05/13/20 12:47 LRN (Rec: 05/14/20 09:17 LRN [id number]) Sensation Evaluation Comments Summary Comments R foot: Sensation is intact to soft touch. Pain elicited with soft touch on the top and lateral side of the R foot. Deep Tendon Reflex & Clonus Assessment Deep Tendon Reflex Left Achilles Deep Tendon Reflex 1+ Diminished Bilateral Patellar Deep Tendon Reflex 3+ Normal But Brisk PT-OP-J Posture/Palpation/Skin Start: 05/09/20 19:57 Freq: Status: Active Protocol: Document 05/13/20 12:47 LRN (Rec: 05/14/20 09:17 LRN [id number]) Posture Evaluation Comments Posture Comments In standing: Wide based stance, hips in ER, valgus of ankles with L worse than R. Elevated L shoulder, mild forward head. Atrophy visible in L lower leg. Palpation Assessment Location R knee Palpation Location R superolateral to patella and generally in the knee Palpation Findings Edema,Tenderness PT-OP-K Range of Motion Start: 05/09/20 19:57 Freq: Status: Active Protocol: Document 05/22/20 11:18 LRN (Rec: 05/22/20 12:15 LRN [id number]) Knee Goniometric Range of Motion Knee Right Patient Position Supine Flexion Active (degrees) 117 Flexion Passive (degrees) 118 Extension Active (degrees) 3 Left Knee ROM WFL Yes Patient Position Supine Flexion Active (degrees) 122 Flexion Passive (degrees) 128 Extension Active (degrees) 0 PT-OP-M Strength Start: 05/09/20 19:57 Freq: Status: Active Protocol: Document 05/13/20 12:47 LRN (Rec: 05/14/20 09:17 LRN [id number]) Hip Strength Hip Manual Muscle Testing Right External Rotation 3+ Fair+ Comments Strength is 5/5 within available ROM except as indicated above. Left Comments Strength is 5/5. Knee Strength Knee Manual Muscle Testing Right Flexion (S2) 4 Good Extension (L3) 5 Normal Left Comments Strength is normal: 5/5 PT-OP-Q Treatments Start: 05/09/20 19:57 Freq: Status: Active Protocol: Document 05/22/20 11:18 LRN (Rec: 05/22/20 12:15 LRN [id number]) Cardio Equipment Recumbent Bicycle Duration (Minutes) 8 Resistance 3 Seat Position 11 Therapeutic Exercises Supine Exercises SAQ Supine Exercise Name SAQ Resistance towel roll under knee Reps/Minutes 10x Hip AB Supine Exercise Name Hip AB Side right Reps/Minutes 10x Bridge Supine Exercise Name Bridge Reps/Minutes 10x SLR Supine Exercise Name SLR Side right Reps/Minutes 10x Glut set/Hamstring set Supine Exercise Name GS w/HS Side right Reps/Minutes 10 hold x 10 Quad set Supine Exercise Name QS Side right Reps/Minutes 10 Hold x 10 R knee AROM Supine Exercise Name R knee AROM Side right Equipment Used T-Ball, belt Reps/Minutes 10 hold both directions - 5' Self-Care/Home Management Treatment Education Patient Education Home Exercise Program Activities Self-Care/Home Management Activities Issued & reviewed supine hip/ knee ex's: Ankle pumps, QS, GS, Heel set, heel slides, SLR , Bridge & hip AB. PT-OP-R Modalities Start: 05/09/20 19:57 Freq: Status: Active Protocol: Document 05/22/20 11:18 LRN (Rec: 05/22/20 12:15 LRN [id number]) Hot Pack/Cold Pack Treatment Cold Pack Location R knee Patient Position Supine Treatment Duration (minutes) 10 Comments Leg up on bolster PT-OP-T Assessment and Plan Start: 05/09/20 19:57 Freq: Status: Active Protocol: Document 05/22/20 11:18 LRN (Rec: 05/22/20 12:15 LRN [id number]) Physical Therapy Assessment Goals Four Impairment Decreased R knee strength due to pain (knee flex 4/5). Short Term Goal (STG) Decrease R knee stiffness and pain (intermittently rated 4/ 10). STG Duration 06/27/20 Mcc Goal (LTG) Increase R knee strength to improve pt's confidence in using his motorcycle. LTG Duration 08/11/20 Three Impairment Decreased R hip rotation mobility(in deg's: ER 20 R, 75 L; PSLR 70 R, 87 L) Short Term Goal (STG) Increase R hip ER to 35 deg's to improve ability to don shoes in sitting with minimal stiffness and pain. STG Duration 06/27/20 Sales Engineer Goal (LTG) Increase R hip rotation to 45- 50 deg's with pt able to wash his feet in the shower with minimal stiffness and pain. LTG Duration 08/11/20 Two Impairment Decreased R knee AROM in supine (5-87 deg's; left is 3- 122 deg's). Short Term Goal (STG) Improve R knee AROM (05/22/20: R knee AROM at start: 113 deg's, at end: 117 deg's). STG Duration 06/27/20 (05/22/20: MET GOAL) Mcc Goal (LTG) Improve pt R knee AROM to be able to go up/down ladders with minimal stiffness and pain. LTG Duration 08/11/20 One Impairment Lacks appropriate self care HEP Sales Engineer Goal (LTG) Pt will be independent with a self care HEP. LTG Duration 08/11/20 (05/22/20: Progressing) Progress Towards Goals Progress Comments R knee AROM at start: 113 deg 's, at end: 117 deg's Assessment Summary Assessment Good tolerance to exercise, pt able to increase PROM as he exercised. Physical Therapy Plan Frequency and Duration Frequency of Treatment 2x/Week Plan of Care Start Date 05/13/20 Plan of Care End Date 08/11/20 Next Visit Focus/Plan Next Note Type Treatment Note Next Visit Plan Add standing R knee strengthening and core stab exercises. DC to HEP in 2 visits.
--- NOTE | 2020-05-27 12:28 | PT.OTN ---
Current Diagnoses Pain in right knee (05/27/20) Stiffness of right hip, not elsewhere classified (05/27/20) Stiffness of right knee, not elsewhere classified (05/27/20) Muscle weakness (generalized) (05/27/20) Pain in right leg (05/27/20) Physical Therapy Treatment Note PT-OP-A Visit Information Start: 05/09/20 19:57 Freq: Status: Active Protocol: Document 05/27/20 11:15 LRN (Rec: 05/27/20 12:27 LRN [id number]) Out-Patient Physical Therapy Visit Information Visit Information Visit Type Treatment Note Visit Start Time 11:15 Visit Stop Time 12:00 Total Visit Minutes 45 Visit Number 5 Evaluation Information Evaluation Date 05/13/20 Precautions Precautions History of Meniscus injury ( current condition) PT-OP-B Current Condition Start: 05/09/20 19:57 Freq: Status: Active Protocol: Document 05/20/20 11:24 LRN (Rec: 05/20/20 12:16 LRN [id number]) Current Condition History of Current Condition Onset Date 09/2019 Current Complaints Stiff in R thigh, can't cross R ankle over L knee History of Current Condition Meniscus injury of R knee 05/11 when he blacked out and woke up injured. He had surgery with good results ( also had R rotator cuff surgery). 2nd surgery ~5 yrs ago, and now contemplating a 3rd surgery after injury 2019 (slipped in snow and knee bent backward). He had an a cortisone injection into the R knee 2 month ago that he reports was somewhat helpful. Pain is now intermittent with moving sideways or with rotation at the R knee. Able to do painting on a ladder and does one step at time to ascend/descend. Pain sometimes at Medial inferior tibial plateau. Prior Treatments and Tests X-ray shows no bony changes. MRI report (05/16/20) indicates : Moderate medial popliteal cyst. Complex degenerative tearing and maceration of the body and posterior horn of the medial meniscus with mild meniscal extrusion. Full thickness cartilage loss the medial femorotibial compartment with subchondral edema. There is also full- thickness cartilage loss in the anterior compartment and deep cartilage fissuring in the lateral compartment. Future Testing and Treatments Planned MRI scheduled 05/16/20 at [facility]. F/U visit with Dr. Mrai at 8:20a, before PT visit. PT-OP-C Subjective Start: 05/09/20 19:57 Freq: Status: Active Protocol: Document 05/27/20 11:15 LRN (Rec: 05/27/20 12:27 LRN [id number]) OP-PT Subjective Patient Comments Patient Comments Was sore after doing ex's issued. Had hamstring ms cramps. Did self trigger paoint treaments on hips. Patient Questionnaires Lower Extremity Functional Scale LEFS Score 56 LEFS Impairment 20 to 39% Impaired (Score 48- 62) OP-PT Pain Assessment Location R medial knee Pain Location Details R medial knee Intensity 4 Right Thigh Pain Location Details R lateral hip Intensity 1 R knee Pain Location Details R knee lateral, posterior Intensity 2 PT-OP-G Mobility & Gait Start: 05/09/20 19:57 Freq: Status: Active Protocol: Document 05/13/20 12:47 LRN (Rec: 05/14/20 09:17 LRN [id number]) OP Gait Assessment Gait Gait Assistance Required: Independent Assistive Devices Assistive Device None Gait Deviations General Gait Pattern Ataxic,Wide Based Gait PT-OP-H Neuro Start: 05/09/20 19:57 Freq: Status: Active Protocol: Document 05/13/20 12:47 LRN (Rec: 05/14/20 09:17 LRN [id number]) Sensation Evaluation Comments Summary Comments R foot: Sensation is intact to soft touch. Pain elicited with soft touch on the top and lateral side of the R foot. Deep Tendon Reflex & Clonus Assessment Deep Tendon Reflex Left Achilles Deep Tendon Reflex 1+ Diminished Bilateral Patellar Deep Tendon Reflex 3+ Normal But Brisk PT-OP-J Posture/Palpation/Skin Start: 05/09/20 19:57 Freq: Status: Active Protocol: Document 05/13/20 12:47 LRN (Rec: 05/14/20 09:17 LRN [id number]) Posture Evaluation Comments Posture Comments In standing: Wide based stance, hips in ER, valgus of ankles with L worse than R. Elevated L shoulder, mild forward head. Atrophy visible in L lower leg. Palpation Assessment Location R knee Palpation Location R superolateral to patella and generally in the knee Palpation Findings Edema,Tenderness PT-OP-K Range of Motion Start: 05/09/20 19:57 Freq: Status: Active Protocol: Document 05/27/20 11:15 LRN (Rec: 05/27/20 12:27 LRN [id number]) Knee Goniometric Range of Motion Knee Right Patient Position Supine Flexion Active (degrees) 110 Flexion Passive (degrees) 112 Extension Active (degrees) 3 PT-OP-M Strength Start: 05/09/20 19:57 Freq: Status: Active Protocol: Document 05/13/20 12:47 LRN (Rec: 05/14/20 09:17 LRN [id number]) Hip Strength Hip Manual Muscle Testing Right External Rotation 3+ Fair+ Comments Strength is 5/5 within available ROM except as indicated above. Left Comments Strength is 5/5. Knee Strength Knee Manual Muscle Testing Right Flexion (S2) 4 Good Extension (L3) 5 Normal Left Comments Strength is normal: 5/5 PT-OP-Q Treatments Start: 05/09/20 19:57 Freq: Status: Active Protocol: Document 05/27/20 11:15 LRN (Rec: 05/27/20 12:27 LRN [id number]) Therapeutic Exercises Supine Exercises R knee AROM Supine Exercise Name R knee AROM Comments ROM taken Sitting Exercises Trunk Flex Sitting Exercise Name Trunk Flex Resistance Lev 4, 2 bands Reps/Minutes 10x Comments Extra time for training for proper movement Trunk Rot Sitting Exercise Name Trunk Rot Side bilateral Resistance Lev 4 Reps/Minutes 10x Comments Extra time for training for proper positioning Standing Exercises Trunk Rot Standing Exercise Name Trunk Rot Side bilateral Resistance Lev 4 Reps/Minutes 10x Comments Extra time for training for proper positioning Hip AB Standing Exercise Name Hip AB Side bilateral Reps/Minutes 10x Hip Ext Standing Exercise Name Hip Ext Side bilateral Resistance Lev 4 Reps/Minutes 10x Hip Flex Standing Exercise Name Hip Flex Side bilateral Resistance Lev 4 Reps/Minutes 10x Self-Care/Home Management Treatment Education Patient Education Home Exercise Program,Joint Protection Other Education Discussed pre-, post-op knee surgery exercises reps, tolerance, sets. Educated and discussed with pt , self progression of exercise for strengthening. Activities Self-Care/Home Management Activities Issued & reviewed HEP: Core strengthening with T-Band for rotation and sidebend. Written HEP for T-Band ex: standing trunk rot & trunk flexion. Issued Level 5 T-Band with strap for door. PT-OP-R Modalities Start: 05/09/20 19:57 Freq: Status: Active Protocol: Document 05/22/20 11:18 LRN (Rec: 05/22/20 12:15 LRN [id number]) Hot Pack/Cold Pack Treatment Cold Pack Location R knee Patient Position Supine Treatment Duration (minutes) 10 Comments Leg up on bolster PT-OP-T Assessment and Plan Start: 05/09/20 19:57 Freq: Status: Active Protocol: Document 05/27/20 11:15 LRN (Rec: 05/27/20 12:27 LRN [id number]) Physical Therapy Assessment Goals Four Impairment Decreased R knee strength due to pain (knee flex 4/5). Short Term Goal (STG) Decrease R knee stiffness and pain (intermittently rated 4/ 10). STG Duration 06/27/20 (05/27/20: NOT MET, pain rated 2-4/10) Shelter Goal (LTG) Increase R knee strength to improve pt's confidence in using his motorcycle. LTG Duration 08/11/20 (05/27/20: NOT MET) Three Impairment Decreased R hip rotation mobility(in deg's: ER 20 R, 75 L; PSLR 70 R, 87 L) Short Term Goal (STG) Increase R hip ER to 35 deg's to improve ability to don shoes in sitting with minimal stiffness and pain. STG Duration 06/27/20 (05/27/20: NOT ASSESSED) Admitting Clerk Goal (LTG) Increase R hip rotation to 45- 50 deg's with pt able to wash his feet in the shower with minimal stiffness and pain. LTG Duration 08/11/20 (05/27/20: NOT MET ) Two Impairment Decreased R knee AROM in supine (5-87 deg's; left is 3- 122 deg's). Short Term Goal (STG) Improve R knee AROM (05/22/20: R knee AROM at start: 113 deg's, at end: 117 deg's). STG Duration 06/27/20 (05/22/20: MET GOAL) Shelter Goal (LTG) Improve pt R knee AROM to be able to go up/down ladders with minimal stiffness and pain. LTG Duration 08/11/20 (05/27/20: NOT MET ) One Impairment Lacks appropriate self care HEP Admitting Clerk Goal (LTG) Pt will be independent with a self care HEP. LTG Duration 08/11/20 (05/27/20: MET for current condition) Assessment Summary Assessment Pt's R knee pain and ROM (hip & knee) is about the same. Mr Markos Richards is planning on having a partial TKA surgery and after discussion pt decided placement on a self half-way strengthening was appropriate. Goals not met due to shortened PT time. Pt is ready today to be placed on an independent HEP and understands he will need a new referral after surgery or a pre-op PT visit in order to be placed on a schedule of PT visits. Physical Therapy Plan Frequency and Duration Frequency of Treatment 2x/Week Plan of Care Start Date 05/13/20 Plan of Care End Date 08/11/20 Discharge Physical Therapy Discharge Reasons Change in Medical Status Discharge Comments Pt is on a home program and is hoping to return after his partial R TKA surgery for rehabilitation. Thank you for your referral.
== END 2020-05-30 09:03 ==
LOC: PHYS 11:15
PROVIDERS: Family Provider Family Medicine; PCP Family Medicine; Referring Provider Family Medicine; Visit Provider Family Medicine
DX: M79.604 Pain in right leg (principal); M62.81 Muscle weakness (generalized); M25.561 Pain in right knee; M25.661 Stiffness of right knee, not elsewhere classified; M25.651 Stiffness of right hip, not elsewhere classified
CPT/HCPCS: 97032; 97035; 97110; 97162

== ENCOUNTER → 2020-06-27 09:49 | Outpatient (CLI) | payer MEDICARE, OTHER, SELFPAY ==
[2020-06-27 10:14] LABS: Add Manual Diff / Slide Review NO; Basophils Absolute Auto 0 /uL (0-100); Basophils Percent Auto 0.7 % (0-2); Eosinophils Absolute Auto 100 /uL (0-450); Eosinophils Percent Auto 1.6 % (2-4); Hematocrit 41.9 % (41-53); Lymphocytes Absolute Auto 1500 /uL (1100-4500); Lymphocytes Percent Auto 24.1 % (25-40); Mean Corpuscular HGB Conc 33.4 % (30-36); Mean Corpuscular Hemoglobin 31.6 PG (26-34); Mean Corpuscular Volume 94.6 fL (80-100); Monocytes Absolute Auto 400 /uL (0-900); Monocytes Percent Auto 6.8 % (3-14); Neutrophils Absolute Auto 4100 /uL (1500-7000); Neutrophils Percent Auto 66.8 % (50-75); Platelet Count 163 X10^3/uL (150-400); Red Blood Cell Count 4.43 X10^6/uL (4.5-5.9); Red Cell Distribution Width 13.6 % (11.6-14.8); White Blood Cell Count 6.2 X10^3/uL (4.5-11.0)
[2020-06-27 10:49] LABS: Carbon Dioxide 28 mmol/L (22-32); Chloride 105 mmol/L (98-107); HEMOLYSIS < 15 (0-50); Potassium 4.1 mmol/L (3.4-5.1); Sodium 137 mmol/L (137-145)
== END ==
PROVIDERS: Family Provider Family Medicine; PCP Family Medicine; Referring Provider Orthopaedic Surgery; Visit Provider Orthopaedic Surgery
DX: Z01.818 Encounter for other preprocedural examination (principal); Z01.812 Encounter for preprocedural laboratory examination
CPT/HCPCS: 36415; 80051; 85025; 93005; 93010

== ENCOUNTER 2020-07-15 15:10 | Emergency (ER) | payer MEDICARE, OTHER, SELFPAY ==
[2020-07-15 15:20] VITALS: BP 173/77; PULSE 69; RESP 16; TEMP 37; O2SAT 95; BMI 39.9
--- NOTE | 2020-07-15 16:40 | DI.US.S_ITS ---
PROCEDURE: US PERIP VENOUS LOW EXTREM RT INDICATIONS: RLE pain, swelling, s/p Knee replacement on 07/08/20 TECHNIQUE: Real-time imaging, as well as color and pulse Doppler interrogation, were performed of the lower extremity deep veins from the inguinal ligament to the popliteal fossa. COMPARISON: [facility], MR, MR KNEE RT WO CON, 05/16/2020, 8:43. [facility], US, US PERIP VENOUS LOW EXTREM RT, 02/01/2020, 13:13. FINDINGS: The common femoral, femoral and popliteal veins are normally compressible, and free of intraluminal thrombus. Color and pulse Doppler demonstrate normal phasic intraluminal flow. There is normal augmentation response to distal compression maneuver. Popliteal fossa cyst measuring 5.4 x 2.8 x 1.7 cm. IMPRESSION: 1. No right lower extremity DVT. 2. 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 Dictated by: Gary Armijo M.D. on 07/15/2020 at 17:28 Approved by: Gary Armijo M.D. on 07/15/2020 at 17:30
--- NOTE | 2020-07-15 16:48 | ED.EXTPRO ---
HPI - Extremity Problem <ISH Alatorre - Last Filed: 07/15/20 21:25> General Chief complaint: Extremity Problem,Nontraumatic Stated complaint: right knee swelling/hot,knee replacement 7 days Time Seen by Provider: 07/15/20 16:21 Source: patient Mode of arrival: Ambulatory Limitations: no limitations History of Present Illness HPI Narrative: This is a 69-year-old male, nonsmoker, who had right knee replacement surgery by Dr. Leigh on 07/08/20 and was discharged to home on the same day presents to ED with chief complain of right knee pain, swelling to knee and lower extremity, warmth to touch and redess in medial knee when he woke up this morning at 3:00 a.m.. Patient reports today he bear weight and ambulated a little more since he had appointment with Dr. Bryan but pain and other symptoms started prior to this. Patient denies chest pain, dyspnea, fever, chills, dizziness. Patient rates pain as 3/10 and describes as sharp and throbbing and he reports has high tolerance for pain. Patient reports intact sensation distally, is able to move his toes, reports tingling sensation on the sole of the right foot. Patient reports he is able to flex slightly and there's no changes. Patient saw Dr. Bryan at 2:00 p.m. today or other medical appointments and when he mentioned the body's knee pain and swelling, he evaluated the knee and advised to follow-up with Dr. Leigh today after the evaluation. He reports went into [facility] and spoke with triage nurse but advised to go to ED if patient has problem and if requires further testings since these can't be done at the clinic. Dr. Leigh today and now ED for an evaluation. Patient reports his taking OxyContin for pain management and he declines pain medicine at this time. Patient is currently taking baby aspirin twice a day. Related Data Home Medications Medication Instructions Recorded Confirmed Resmed Airsense 10 CPAP #1 ea 02/01/19 01/31/20 cranberry 2,500 mg PO DAILY 05/01/19 01/31/20 cyanocobalamin (vitamin B-12) 2,500 mg PO DAILY 05/01/19 01/31/20 melatonin 5 mg PO BEDTIME 05/01/19 01/31/20 aspirin 81 mg PO BID 07/15/20 07/15/20 Previous Rx's Medication Instructions Recorded acetaminophen 650 mg 1,300 mg PO Q8H PRN #90 tab 03/15/18 tablet,extended release atorvastatin 10 mg tablet See Rx Instructions .ROUTE 09/27/19 .COMPLEX #90 tablet omeprazole magnesium 20 mg 20 mg PO DAILY #90 tab 09/27/19 tablet,delayed release doxycycline monohydrate 100 mg 100 mg PO BID #20 cap 10/09/19 capsule clotrimazole-betamethasone 1 1 applictn TOP BID 14 Days #15 gram 02/01/20 %-0.05 % topical cream alfuzosin 10 mg tablet,extended 10 mg PO DAILY #90 tab 07/15/20 release 24 hr Allergies Allergy/AdvReac Type Severity Reaction Status Date / Time Penicillins [PENICILLINS] Allergy Severe ANAPHYLAXSI Verified 07/15/20 15:20 S Review of Systems <ISH Alatorre - Last Filed: 07/15/20 21:25> Review of Systems Narrative: General: Denies fever, chills, fatigue, malaise, sweats. HEENT: Denies sinus pain, ear pain, sore throat, difficulty swallowing, dizziness. Respiratory: Denies dyspnea, cough, wheezing, hemoptysis, sputum. Cardiovascular: Denies chest pain, palpitations, orthopnea, edema. Gastrointestinal: Denies nausea, vomiting, abdominal pain, diarrhea, constipation, melena. : Denies dysuria, frequency, incontinence, hematuria, urinary retention. Musculoskeletal: See HPI Skin: Denies rash, skin lesions, or other. Neurologic: Denies weakness, headache, numbness, change in speech, confusion, seizures, incoordination. Psychiatric: No concerning psychosocial issues. 12-point review of systems is negative except for those stated above. Patient History <ISH Alatorre - Last Filed: 07/15/20 21:25> Medical History Rudolph's esophagus Excessive daytime sleepiness GERD (gastroesophageal reflux disease) (2009) Hyperlipidemia Impaired glucose regulation Obstructive sleep apnea of adult Peyronie's disease Snoring Surgical History Anesthesia Knee joint replacement status Family History Father Cancer Stroke Grandmother Diabetes mellitus Sister Diabetes mellitus Hypertension Mental health problem Mother No problems noted. Grandfather Prostate disease Social History household members: none Smoking Status: Never smoker Smoking Status: Never smoker alcohol intake frequency: other Substance Use Type: does not use Exam <ISH Alatorre - Last Filed: 07/15/20 21:25> Narrative Exam Narrative: GEN: Alert, oriented x 3, well appearing and nourished. Found patient standing in the room and he reports disposition is more comfortable for his right knee pain. Head: Normal cephalic, atraumatic. No scalp or temporal tenderness, palpable mass or rash. EYES: Pupils are equal, round, and reactive to light and accommodation. Extraocular muscles are intact bilaterally. There is no subconjunctival hemorrhage, exudate and sclera non-icteric. ENT: Hearing grossly intact. Nose without bleeding, purulent discharge or deviation. Mucous membrane moist, no mucosal lesion. Throat without erythema, tonsillar hypertrophy or exudate. Uvula in midline, airway patent. Neck: Trachea in midline. No JVD, non-tender without lymphadenopathy. No masses or thyroid megaly. Supple, non-tender and no meningeal signs. CARDIAC: Normal regular rate and rhythm without murmurs, gallops, or rubs. No chest wall tenderness. No peripheral edema, cyanosis or pallor. Capillary refill is less than 2 seconds. RESPIRATORY: Lungs are clear to auscultate bilaterally. No cough, wheezes, rales, or rhonchi. No stridor, respiratory distress, increase work of breathing, or accessary muscle used. ABD: Abdomen soft, nontender and non-distended. No guarding or rebound tenderness to palpate. Bowel sounds are normal in all 4 quadrants. There is no palpable masses or organomegaly. SKIN: Mild erythema and warmth to palpate in right medial knee. No erythema, lesions or rash over visible areas. BACK: Nontender without deformity or crepitance. No flank tenderness. NEUROLOGICAL: Alert and oriented to place, time and person. Sensation and motor function intact bilaterally. No facial droops, dysphasia. PSYCHIATRIC: Good judgement and reason, without hallucinations, abnormal affect or abnormal behaviors during the examination. Patient is not suicidal. Initial Vital Signs Initial Vital Signs: Vital Signs Temperature 98.6 F 07/15/20 15:20 Pulse Rate 69 07/15/20 15:20 Respiratory Rate 16 07/15/20 15:20 Blood Pressure 173/77 H 07/15/20 15:20 Pulse Oximetry 95 07/15/20 15:20 Extrem Right lower extremity: knee Details: tenderness Location: of the patella and of the medial joint line, swelling (Right lower extremity including calf) Location: of the patella, of the pre-patellar area and of the infrapatellar area, knee ligament exam abnormal (Patient is able to flex about 10 to 15 degree and reports no changes since the surgery), laceration (Vertical surgical incision on right patella with mild swelling, warmth, and erythema) and warmth (Medial knee); no ecchymosis and no crepitus, lower leg Details: non-pitting edema; no unusual warmth and foot Details: normal capillary refill, toes with normal ROM, vascular exam Details: dorsalis pedis pulse present and normal capillary refill and motor-sensory exam Details: light-touch normal <Lyssa Espinoza DO - Last Filed: 07/16/20 11:49> Initial Vital Signs Initial Vital Signs: Vital Signs Temperature 98.6 F 07/15/20 15:20 Pulse Rate 69 07/15/20 15:20 Respiratory Rate 16 07/15/20 15:20 Blood Pressure 173/77 H 07/15/20 15:20 Pulse Oximetry 95 07/15/20 15:20 Scores <ISH Alatorre - Last Filed: 07/15/20 21:25> GCS Sophia coma scale eye opening: Spontaneous Sophia coma scale verbal response: Orientated Sophia coma scale motor response: Obey commands [place] coma scale total score: 15 Course <ISH Alatorre - Last Filed: 07/15/20 21:25> Orders Ordered: ED Orders 07/15/20 16:40 US periph venous low extrem rt Stat 07/15/20 17:20 C-Reactive Protein Quant Stat Complete Blood Count AUTO DIFF Stat Comprehensive Metabolic Panel Stat Erythrocyte Sedimentation Rate Stat Lactate (Lactic Acid) Stat Procalcitonin Stat 07/15/20 17:56 XR knee RT 3V Stat Reevaluation(s) Reevaluation #1: Consulted Dr. Rock with physical finding, US and RAD imaging tests results and blood test results. She recommended patient to call the clinic early in the morning tomorrow and to be evaluated by physician or PA tomorrow. Time: 19:16 Vital Signs Vital signs: Vital Signs - 8 hr 07/15/20 15:20 07/15/20 19:03 Temperature 98.6 F Pulse Rate 69 61 Respiratory Rate 16 18 Blood Pressure 173/77 H 154/70 H Pulse Oximetry 95 98 <Lyssa Espinoza DO - Last Filed: 07/16/20 11:49> Orders Ordered: ED Orders 07/15/20 16:40 US periph venous low extrem rt Stat 07/15/20 17:20 C-Reactive Protein Quant Stat Complete Blood Count AUTO DIFF Stat Comprehensive Metabolic Panel Stat Erythrocyte Sedimentation Rate Stat Lactate (Lactic Acid) Stat Procalcitonin Stat 07/15/20 17:56 XR knee RT 3V Stat Vital Signs Vital signs: Vital Signs - 8 hr 07/15/20 15:20 07/15/20 19:03 Temperature 98.6 F Pulse Rate 69 61 Respiratory Rate 16 18 Blood Pressure 173/77 H 154/70 H Pulse Oximetry 95 98 MDM - Extremity (Nontraumatic) <ISH Alatorre - Last Filed: 07/15/20 21:25> Differential Diagnosis Differential diagnosis: Likely cellulitis, deep vein thrombosis of lower extremity and other (Joint infection) Medical Records Attestation: I reviewed the patient's medical records. Lab Data Attestation: I reviewed the patient's lab results. Result diagrams: 07/15/20 17:20 07/15/20 17:20 Labs: Lab Results 07/15/20 07/15/20 07/15/20 Range/Units 17:20 17:20 17:20 WBC 7.7 (4.5-11.0) X10^3/uL RBC 4.54 (4.5-5.9) X10^6/uL Hgb 14.4 (13.5-17.5) g/dL Hct 42.3 (41-53) % MCV 93.2 (80-100) fL MCH 31.7 (26-34) PG MCHC 34.0 (30-36) % RDW 13.3 (11.6-14.8) % Plt Count 193 (150-400) X10^3/uL Neut % (Auto) 73.2 (50-75) % Lymph % (Auto) 17.1 L (25-40) % [place] % (Auto) 6.0 (3-14) % Eos % (Auto) 3.0 (2-4) % Baso % (Auto) 0.7 (0-2) % Neut # (Auto) 5600 (3222-6530) /uL Lymph # (Auto) 1300 (8768-6125) /uL [place] # (Auto) 500 (0-900) /uL Eos # (Auto) 200 (0-450) /uL Baso # (Auto) 100 (0-100) /uL ESR 13 (0-15) MM/HR Sodium 136 L (137-145) mmol/L Potassium 4.5 (3.4-5.1) mmol/L Chloride 102 (98-107) mmol/L Carbon Dioxide 29 (22-32) mmol/L BUN 22 H (9-20) mg/dL Creatinine 0.79 (0.66-1.25) mg/dL Estimated GFR > 60.0 (>60) mL/min BUN/Creatinine Ratio 27.8 H (6-22) Glucose 121 H (80-110) mg/dL Lactate (0.7-2.1) mmol/L Calcium 9.0 (8.4-10.2) mg/dL Total Bilirubin 0.7 (0.2-1.3) mg/dL AST 24 (17-59) IU/L ALT 24 (<50) IU/L Alkaline Phosphatase 64 (38-126) U/L C-Reactive Protein 2.3 H (<1.0) mg/dL Total Protein 7.2 (6.3-8.2) g/dL Albumin 4.2 (3.5-5.0) g/dL Globulin 3.0 (1.7-4.1) g/dL Albumin/Globulin Ratio 1.4 (1.0-2.8) Procalcitonin < 0.05 (<0.5) ng/mL 07/15/20 Range/Units 17:20 WBC (4.5-11.0) X10^3/uL RBC (4.5-5.9) X10^6/uL Hgb (13.5-17.5) g/dL Hct (41-53) % MCV (80-100) fL MCH (26-34) PG MCHC (30-36) % RDW (11.6-14.8) % Plt Count (150-400) X10^3/uL Neut % (Auto) (50-75) % Lymph % (Auto) (25-40) % [place] % (Auto) (3-14) % Eos % (Auto) (2-4) % Baso % (Auto) (0-2) % Neut # (Auto) (4925-4771) /uL Lymph # (Auto) (0367-2307) /uL [place] # (Auto) (0-900) /uL Eos # (Auto) (0-450) /uL Baso # (Auto) (0-100) /uL ESR (0-15) MM/HR Sodium (137-145) mmol/L Potassium (3.4-5.1) mmol/L Chloride (98-107) mmol/L Carbon Dioxide (22-32) mmol/L BUN (9-20) mg/dL Creatinine (0.66-1.25) mg/dL Estimated GFR (>60) mL/min BUN/Creatinine Ratio (6-22) Glucose (80-110) mg/dL Lactate 0.9 (0.7-2.1) mmol/L Calcium (8.4-10.2) mg/dL Total Bilirubin (0.2-1.3) mg/dL AST (17-59) IU/L ALT (<50) IU/L Alkaline Phosphatase (38-126) U/L C-Reactive Protein (<1.0) mg/dL Total Protein (6.3-8.2) g/dL Albumin (3.5-5.0) g/dL Globulin (1.7-4.1) g/dL Albumin/Globulin Ratio (1.0-2.8) Procalcitonin (<0.5) ng/mL Imaging Data US - DVT: Radiologist's Impression: [address] [id number] ReportSigned Patient: Zeeshan Richards Jr MMR#: [id number]: [id number]:[id number]/Sex: 69 / MDate of Service: 07/15/20Loc: EDAccession Number: [id number] Procedure: US periph venous low extrem rt Ordering Provider: Marcio Israel PROCEDURE: US PERIPH VENOUS LOW EXTREM RT INDICATIONS: RLE pain, swelling, s/p Knee replacement on 07/08/20 TECHNIQUE: Real-time imaging, as well as color and pulse Doppler interrogation, were performed of the lower extremity deep veins from the inguinal ligament to the popliteal fossa. COMPARISON: [facility], KNEE RT WO CON, 05/16/2020, 8:43. [facility], PERIP VENOUS LOW EXTREM RT, 02/01/2020, 13:13. FINDINGS: The common femoral, femoral and popliteal veins are normally compressible, and free of intraluminal thrombus. Color and pulse Doppler demonstrate normal phasic intraluminal flow. There is normal augmentation response to distal compression maneuver. Popliteal fossa cyst measuring 5.4 x 2.8 x 1.7 cm. IMPRESSION: 1. No right lower extremity DVT. 2. 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 Dictated by: Gary Armijo M.D. on 07/15/2020 at 17:28 Approved by: Gary Armijo M.D. on 07/15/2020 at 17:30 XR-Knee RT: Radiologist's Impression: Zeeshan Richards Jr 69 M [address] [id number] ReportSigned Patient: Zeeshan Richards Jr [facility]#: [id number]: [id number]:[id number]/Sex: 69 / MDate of Service: 07/15/20Loc: EDAccession Number: [id number] Procedure: XR knee RT 3V Ordering Provider: Marcio Israel PROCEDURE: XR KNEE RT 3V INDICATIONS: knee pain, swelling, warmth. s/p knee replacement 7 days TECHNIQUE: 3 views of the knee were acquired. COMPARISON: [facility], MR KNEE RT WO CON, 05/16/2020, 8:43. FINDINGS: Bones: Medial knee arthroplasty hardware is seen. No findings of hardware failure or hardware loosening are seen. Soft tissues: There is a mild joint effusion. No suspicious soft tissue calcifications. IMPRESSION: Unremarkable postoperative study, with a mild joint effusion. Dictated by: Jayy Molina M.D. on 07/15/2020 at 17:18 Approved by: Jayy Molina M.D. on 07/15/2020 at 17:18 [facility] Narrative Medical decision making narrative: This is a 69-year-old male who had right knee replacement surgery done [address] Leigh presents to ED with chief complain of increasing redness, warmth, swelling, pain on right knee since 3 am when he woke up from sleep. Patient advised to see Dr. Leigh by Dr. Bryan today after he was evaluated for other medical conditions and presents to clinic but was advised to go to ED for further workup by triage nurse. Patient is currently taking baby aspirin twice a day. Physical exam appreciated swelling to right lower extremity below knee with intact sensation and cap refill. Medial right knee with mild warmth to palpate, mild erythema in medial and patellar region. Slight tenderness to palpate in patellar region. He was able to flex and extend affected knee about the same degree after the surgery according to patient. Concerned for DVT verses infection and obtained labs and ultrasound test of right lower extremity. Ultrasound test does not show acute findings such as DVT. No leukocytosis with WBC of 7.7. Normal ESR of 13. Mild elevation in CRP as 2.3. Normal lactate of 0.9 and procalcitonin less than 0.05. Lab tests are assuring. X-ray test on right does not show hardware failure or loosening. There is a mild joint effusion which is unremarkable findings at postop day [address]. Rock was consulted and she recommended patient to follow-up tomorrow at the clinic and be evaluated by physician or PA calling the clinic early in the morning. Patient declined pain medications in ED stating he is to drive home. Patient advised to use his outpatient pain medications, elevate affected leg during rest, and to use cool packs as needed for swelling. Patient verbalized understanding and in agreement with the treatment plan. <Lyssa Espinoza, - Last Filed: 07/16/20 11:49> Lab Data Labs: Lab Results 07/15/20 07/15/20 07/15/20 Range/Units 17:20 17:20 17:20 WBC 7.7 (4.5-11.0) X10^3/uL RBC 4.54 (4.5-5.9) X10^6/uL Hgb 14.4 (13.5-17.5) g/dL Hct 42.3 (41-53) % MCV 93.2 (80-100) fL MCH 31.7 (26-34) PG MCHC 34.0 (30-36) % RDW 13.3 (11.6-14.8) % Plt Count 193 (150-400) X10^3/uL Neut % (Auto) 73.2 (50-75) % Lymph % (Auto) 17.1 L (25-40) % [place] % (Auto) 6.0 (3-14) % Eos % (Auto) 3.0 (2-4) % Baso % (Auto) 0.7 (0-2) % Neut # (Auto) 5600 (0891-3491) /uL Lymph # (Auto) 1300 (9213-6678) /uL [place] # (Auto) 500 (0-900) /uL Eos # (Auto) 200 (0-450) /uL Baso # (Auto) 100 (0-100) /uL ESR 13 (0-15) MM/HR Sodium 136 L (137-145) mmol/L Potassium 4.5 (3.4-5.1) mmol/L Chloride 102 (98-107) mmol/L Carbon Dioxide 29 (22-32) mmol/L BUN 22 H (9-20) mg/dL Creatinine 0.79 (0.66-1.25) mg/dL Estimated GFR > 60.0 (>60) mL/min BUN/Creatinine Ratio 27.8 H (6-22) Glucose 121 H (80-110) mg/dL Lactate (0.7-2.1) mmol/L Calcium 9.0 (8.4-10.2) mg/dL Total Bilirubin 0.7 (0.2-1.3) mg/dL AST 24 (17-59) IU/L ALT 24 (<50) IU/L Alkaline Phosphatase 64 (38-126) U/L C-Reactive Protein 2.3 H (<1.0) mg/dL Total Protein 7.2 (6.3-8.2) g/dL Albumin 4.2 (3.5-5.0) g/dL Globulin 3.0 (1.7-4.1) g/dL Albumin/Globulin Ratio 1.4 (1.0-2.8) Procalcitonin < 0.05 (<0.5) ng/mL 20 Range/Units 17:20 WBC (4.5-11.0) X10^3/uL RBC (4.5-5.9) X10^6/uL Hgb (13.5-17.5) g/dL Hct (41-53) % MCV (80-100) fL MCH (26-34) PG MCHC (30-36) % RDW (11.6-14.8) % Plt Count (150-400) X10^3/uL Neut % (Auto) (50-75) % Lymph % (Auto) (25-40) % [place] % (Auto) (3-14) % Eos % (Auto) (2-4) % Baso % (Auto) (0-2) % Neut # (Auto) (4445-6030) /uL Lymph # (Auto) (2872-2376) /uL [place] # (Auto) (0-900) /uL Eos # (Auto) (0-450) /uL Baso # (Auto) (0-100) /uL ESR (0-15) MM/HR Sodium (137-145) mmol/L Potassium (3.4-5.1) mmol/L Chloride (98-107) mmol/L Carbon Dioxide (22-32) mmol/L BUN (9-20) mg/dL Creatinine (0.66-1.25) mg/dL Estimated GFR (>60) mL/min BUN/Creatinine Ratio (6-22) Glucose (80-110) mg/dL Lactate 0.9 (0.7-2.1) mmol/L Calcium (8.4-10.2) mg/dL Total Bilirubin (0.2-1.3) mg/dL AST (17-59) IU/L ALT (<50) IU/L Alkaline Phosphatase (38-126) U/L C-Reactive Protein (<1.0) mg/dL Total Protein (6.3-8.2) g/dL Albumin (3.5-5.0) g/dL Globulin (1.7-4.1) g/dL Albumin/Globulin Ratio (1.0-2.8) Procalcitonin (<0.5) ng/mL Discharge Plan Departure Patient Disposition: Home Clinical Impression: Knee pain Qualifiers: Chronicity: acute Laterality: right Qualified Code(s): M25.561 - Pain in right knee Instructions: DI for Knee Pain Activity Restrictions/Additional Instructions: You have been diagnosed with [increased right knee pain, swelling, warmth and redness since early this AM. Blood tests, ultrasound and x-ray tests results are assuring. I spoke with Dr. Rock and she recommended to call the ortho clinic office 1st thing in the morning to be seen at the clinic tomorrow by orthopedist or PA.]. What to do: *Take your medications as directed. *Follow up with your primary care provider in 2-3 days, call for an appointment. Let them know you were seen in the ED and that we asked you to be seen in follow up. *Return to ED if you have any new, worsening, or concerning symptoms, such as [fever, drainage, increasing pain, increasing tingling/numbness/weakness to affected leg, chest pain, breathing difficulty, or any acute concerns]. Prescriptions: No Action acetaminophen 650 mg tablet extended release 1,300 mg PO Q8H PRN (Reason: fever) Qty: 90 RF: 0 doxycycline monohydrate 100 mg capsule 100 mg PO BID Qty: 20 RF: 2 atorvastatin 10 mg tablet See Rx Instructions .ROUTE .COMPLEX Qty: 90 RF: 3 Prilosec OTC 20 mg tablet,delayed release (DR/EC) 20 mg PO DAILY Qty: 90 RF: 3 clotrimazole-betamethasone 1-0.05 % cream 1 applictn TOP BID 14 Days Qty: 15 RF: 2 alfuzosin 10 mg tablet extended release 24 hr 10 mg PO DAILY Qty: 90 RF: 3 cranberry 2,500 mg PO DAILY RF: 0 cyanocobalamin (vitamin B-12) 2,500 mg PO DAILY RF: 0 melatonin 5 mg PO BEDTIME RF: 0 aspirin 81 mg PO BID RF: 0 (DME) Resmed Airsense 10 CPAP Qty: 1 RF: 0 Referrals: Ryan Bryan MD [Primary Care Provider] - Stevie Leigh MD [Physician] - <Lyssa Espinoza DO - Last Filed: 07/16/20 11:49> Cosign ED Attending Cosignature Attestation: I was immediately available in the department for consultation. This documentation has been reviewed and I agree with assessment and plan. Supervised by Lyssa Espinoza DO
[2020-07-15 17:25] LABS: Add Manual Diff / Slide Review NO; Basophils Absolute Auto 100 /uL (0-100); Basophils Percent Auto 0.7 % (0-2); Eosinophils Absolute Auto 200 /uL (0-450); Hematocrit 42.3 % (41-53); Hemoglobin 14.4 g/dL (13.5-17.5); Lymphocytes Absolute Auto 1300 /uL (1100-4500); Lymphocytes Percent Auto 17.1 % (25-40); Mean Corpuscular Hemoglobin 31.7 PG (26-34); Mean Corpuscular Volume 93.2 fL (80-100); Monocytes Absolute Auto 500 /uL (0-900); Neutrophils Absolute Auto 5600 /uL (1500-7000); Neutrophils Percent Auto 73.2 % (50-75); Platelet Count 193 X10^3/uL (150-400); Red Blood Cell Count 4.54 X10^6/uL (4.5-5.9); Red Cell Distribution Width 13.3 % (11.6-14.8); White Blood Cell Count 7.7 X10^3/uL (4.5-11.0)
[2020-07-15 17:39] LABS: Lactate (Lactic Acid) 0.9 mmol/L (0.7-2.1)
[2020-07-15 17:40] LABS: Alanine Aminotransferase 24 IU/L (<50); Albumin 4.2 g/dL (3.5-5.0); Albumin Globulin Ratio 1.4 (1.0-2.8); Alkaline Phosphatase 64 U/L (38-126); Aspartate Aminotransferase 24 IU/L (17-59); BUN Creatinine Ratio 27.8 (6-22); Bilirubin Total 0.7 mg/dL (0.2-1.3); Blood Urea Nitrogen 22 mg/dL (9-20); C-Reactive Protein Quant 2.3 mg/dL (<1.0); Carbon Dioxide 29 mmol/L (22-32); Chloride 102 mmol/L (98-107); Estimated Glomerular Filt Rate > 60.0 mL/min (>60); Glucose 121 mg/dL (80-110); HEMOLYSIS < 15 (0-50); Potassium 4.5 mmol/L (3.4-5.1); Sodium 136 mmol/L (137-145); Total Protein 7.2 g/dL (6.3-8.2)
[2020-07-15 17:51] LABS: Erythrocyte Sedimentation Rate 13 MM/HR (0-15)
--- NOTE | 2020-07-15 17:56 | DI.RAD.S_ITS ---
PROCEDURE: XR KNEE RT 3V INDICATIONS: knee pain, swelling, warmth. s/p knee replacement 7 days TECHNIQUE: 3 views of the knee were acquired. COMPARISON: [facility], MR, MR KNEE RT WO CON, 05/16/2020, 8:43. FINDINGS: Bones: Medial knee arthroplasty hardware is seen. No findings of hardware failure or hardware loosening are seen. Soft tissues: There is a mild joint effusion. No suspicious soft tissue calcifications. IMPRESSION: Unremarkable postoperative study, with a mild joint effusion. Dictated by: Jayy Molina M.D. on 07/15/2020 at 17:18 Approved by: Jayy Molina M.D. on 07/15/2020 at 17:18
[2020-07-15 17:58] LABS: Procalcitonin < 0.05 ng/mL (<0.5)
[2020-07-15 19:03] VITALS: BP 154/70; PULSE 61; RESP 18; O2SAT 98
== END 2020-07-15 19:29 | disposition home or self-care (01) ==
PROVIDERS: Emergency Provider Nurse Practitioner Family; Family Provider Family Medicine; PCP Family Medicine
DX: M25.561 Pain in right knee (principal); Z96.651 Presence of right artificial knee joint
CPT/HCPCS: 36415; 73562; 80053; 83605; 84145; 85025; 85651; 86140; 93971; 99283; 99284

== ENCOUNTER 2020-09-26 14:30 | Outpatient (RCR) | payer MEDICARE, OTHER, SELFPAY ==
--- NOTE | 2020-07-14 16:14 | PT.OIE ---
Current Diagnoses Unilateral primary osteoarthritis, right knee (07/14/20) Past Medical History (Last Reviewed 01/31/20 @ 22:01 by ISH Fowler) Rudolph's esophagus Excessive daytime sleepiness GERD (gastroesophageal reflux disease) (2010) Hyperlipidemia Impaired glucose regulation Obstructive sleep apnea of adult Peyronie's disease Snoring Past Surgical History (Last Reviewed 01/31/20 @ 22:01 by ISH Fowler) Anesthesia Visit Care Team Role Provider Type Ryan Bryan MD Family Provider Physician Primary Care Provider Specialty: Family Practice Address: [address] [place] [address], [id number] Email: [email or web address] Stevie Leigh MD Attending Provider Physician Referring Provider Specialty: Orthopedic Surgery Address: [address] [place] [address], [id number] Email: [email or web address] [facility] Initial Evaluation PT-OP-A Visit Information Start: 07/14/20 07:30 Freq: Status: Active Protocol: Document 07/14/20 09:50 MB (Rec: 07/14/20 10:07 MB [id number]) Out-Patient Physical Therapy Visit Information Visit Information Visit Type Initial Evaluation Visit Note Medicare Visit Start Time 09:50 Visit Stop Time 10:30 Total Visit Minutes 40 Visit Number 1 Evaluation Information Evaluation Date 07/14/20 PT-OP-B Current Condition Start: 07/14/20 07:30 Freq: Status: Active Protocol: Document 07/14/20 09:50 MB (Rec: 07/14/20 10:07 MB [id number]) Current Condition History of Current Condition Onset Date 07/08/2020 Current Complaints Right leg swelling is stopping me from getting any more movement History of Current Condition R partial total knee surgery, medial side on 07/08/2020. Pt reports he had PT before surgery and had to stop. Pt states that in the winter 2019 , he hurt his knee when shoveling show after it was put in front of his driveway by the city. Pt carries straight cane on the right side and is not open to carrying the cane in his left hand. He has a lot of pain in his right knee on the front, side and back of knee. He rates pain up to 5/10. He is icing 6x/day. He spends most of the day lying on his back with leg up on coffee table. He lives alone, he has a single story home, w/c accessibility. He has a rollator that he uses at home when he needs it. This is his first time away from home. He got a ride to PT. 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 He is concerned about how the process has been going as far as surgical visits and follow- up. Pt has not been performing many exercises since surgery d /t pain. He has a recumbent bike and has not been able to do it. Pt is taking pain medication that is making him sleep a lot and have trouble thinking like he would like to . Prior Treatments and Tests PT before surgery. Pt states that US and head was helpful. Treatment Goals Patient/Caregiver Goals To get back to be able to do what I could do before. This includes riding my motorcycle and flying. My leg has to work . PT-OP-C Subjective Start: 07/14/20 07:30 Freq: Status: Active Protocol: Document 07/14/20 09:50 MB (Rec: 07/14/20 10:09 MB [id number]) OP-PT Subjective Patient Comments Patient Comments See history of current condition Patient Questionnaires Lower Extremity Functional Scale LEFS Score 23 LEFS Impairment 60 to 79% Impaired (Score 17- 31) PT-OP-D Balance Start: 07/14/20 07:30 Freq: Status: Active Protocol: Document 07/14/20 09:50 MB (Rec: 07/14/20 16:07 MB [id number]) OP-PT Balance Assessment Sitting Balance Static Sitting Balance Ability Good Dynamic Sitting Balance Ability Good Sitting Balance Comments UE support for dynamic sitting balance and pt cannot tolerate sit to stands today Standing Balance Static Standing Balance Ability Poor Dynamic Standing Balance Ability Poor Standing Balance Comments Pt uses SPC or reaches for mat for standing Carranza Fall Scale Copyright Permission PT-OP-G Mobility & Gait Start: 07/14/20 07:30 Freq: Status: Active Protocol: Document 07/14/20 09:50 MB (Rec: 07/14/20 16:07 MB [id number]) OP Gait Assessment Gait Gait Assistance Required: Independent Distance (Feet) 50 Assistive Devices Assistive Device Straight Cane Orthotic/Prosthetic Devices or Brace: No Gait Deviations General Gait Pattern Antalgic,Decreased Stride Length,Decreased Feet Clearance,Flexed Trunk,Lateral Trunk Lean,Step-to Gait Factors Limiting Gait Function Factors Limiting Gait Function Decreased Strength,Limited Range of Motion,Pain,Poor Balance,Poor Safety Awareness Comments Gait Comments Pt arrives using SPC in right hand and when PT suggests that he try in his left hand in order to unweight right LE, he states, I'm not going to do that. Pt does agree to try this after assessment. His gait is less antalgic with SPC in left hand. PT-OP-K Range of Motion Start: 07/14/20 07:30 Freq: Status: Active Protocol: Document 07/14/20 09:50 MB (Rec: 07/14/20 16:07 MB [id number]) Knee Goniometric Range of Motion Knee Right Knee ROM WFL No Patient Position Supine Flexion Active (degrees) 35 Extension Active (degrees) 15 Comments AROM 15-35 deg Left Knee ROM WFL Yes Patient Position Supine Flexion Active (degrees) 120 Extension Active (degrees) 0 Comments AROM 0-120 deg PT-OP-M Strength Start: 07/14/20 07:30 Freq: Status: Active Protocol: Document 07/14/20 09:50 MB (Rec: 07/14/20 16:07 MB [id number]) Hip Strength Hip Manual Muscle Testing Right Comments Pt states that he does not want PT to MMT his right LE today d/t fear of increasing pain in his right leg Left Flexion (L2) 5 Normal Extension (S1) 4 Good Comments Pt supine Knee Strength Knee Manual Muscle Testing Right Comments Pt states that he does not want PT to MMT his right LE today d/t fear of increasing pain in his right leg Left Flexion (S2) 5 Normal Extension (L3) 5 Normal Ankle/Foot Strength Ankle and Foot Manual Muscle Testing Left Dorsiflexion (L4) 5 Normal Right Comments Pt states that he does not want PT to MMT his right LE today d/t fear of increasing pain in his right leg Toe Strength Toe Manual Muscle Testing Left Great Toe Extension 5 Normal Right Great Toe Comments Pt states that he does not want PT to MMT his right LE today d/t fear of increasing pain in his right leg PT-OP-Q Treatments Start: 07/14/20 07:30 Freq: Status: Active Protocol: Document 07/14/20 09:50 MB (Rec: 07/14/20 16:07 MB [id number]) Therapeutic Exercises Supine Exercises AP Side bilateral Comments 10 reps SLR Side right Comments Pt cannot perform fully today d/t quad weakness Glut set/Hamstring set Side bilateral Comments 5 reps today Quad set Side bilateral Comments 5 reps today R knee AROM Side right Comments HS x3 today Gait Training Gait Activity 1 Comments Gait training with cane in left hand and pt is able to unweight his painful surgical right leg today. Questionable if pt will use cane in this manner at home. PT-OP-T Assessment and Plan Start: 07/14/20 07:30 Freq: Status: Active Protocol: Document 07/14/20 09:50 MB (Rec: 07/14/20 16:07 [id number]) Physical Therapy Assessment Rehab Potential Rehabilitation Potential Fair Evaluation Complexity Number of Personal Factors/Comorbidities 3 or More Number of Body Systems Impaired 1-2 Clinical Presentation at Evaluation Stable Impairments Impairments Activity Tolerance,Balance, Coordination,Edema,Functional Activities,Functional Mobility ,Gait,Integument,Pain,Posture, ROM,Soft Tissue Mobility, Strength,Transfers Other Impairments Personal factors include: pt lives at home alone and has to find rides from friends for PT, self-limiting behaviors when PT suggests compression hose (pt states that he cannot pull them up), refusal for any right LE MMT d/t fear of pain and questionable compliance with AD use education. Pt states that he does not like pain and that he is frustrated with his operative process so far. Goals 6 Intermediate Goal (LTG) Pt will perform progressive HEP with I to improve ROM, flexibility, gait and strength by 09/13/2020. LTG Duration 8 weeks 5 Intermediate Goal (LTG) Pt will gait train at least 1400 feet in 6 minutes without AD to improve community ambulation by 09/15/2020. LTG Duration 8 weeks Four Facility Sales And Admin Goal (LTG) Pt will present with an improved LEF score to reflect no more than 20% impairment to reflect improved functional mobility by 09/15/2020. LTG Duration 8 weeks Three Intermediate Goal (LTG) Pt will present with improved right knee AROM from 0-120 deg to improve transfers by 2020. LTG Duration 8 weeks Two Impairment Pt requires max A to don right shoe today Facility Sales And Admin Goal (LTG) Pt will don shoes and socks I to improve functional independence by 08/13/2020. LTG Duration 4 weeks One Intermediate Goal (LTG) Pt will perform 12 reps sit to stand without UE support in 30 sec to improve functional strength by 09/15/2020. LTG Duration 8 weeks Assessment Summary Assessment Pt is a 69 y/o male presenting with reports of high right knee pain that requires him to take pain medication and does not allow him to put on his shoe or put on compression hose. He also asks PT not to MMT any right LE joint today d /t fear of pain. He presents gait training with SPC in his right hand and is initially resistant to trying it in his left hand but he does try at the end of treatment. He presents with very limited right knee AROM 15-35 deg and inability to relax leg into extension on the mat. He c/o swelling that is a barrier to range, per his report. He expresses frustration with his surgical process to this point and does not know when his first post-op appointment is. He states that he wanted to drive 7 days post-op ( tomorrow). PT educates him that he should follow-up with surgeon about driving. He lives at home alone and has trouble getting help at home and rides to therapy. He states that his brain is off from having to take pain medication. He will benefit from PT to improve range, function, strength and gait. Barriers to PT include self- limiting behaviors, poor insight to safety, reluctance to follow-through with PT education and high reports of pain. Physical Therapy Plan Frequency and Duration Frequency of Treatment 2x/Week Duration of Treatment 8 weeks Plan of Care Start Date 07/14/20 Plan of Care End Date 09/15/20 Therapeutic Interventions Therapeutic Interventions Balance Training,Canalithic Repositioning,Gait Training, Home Exercise Program,Joint Mobilizations,Manual Therapy, Neuromuscular Re-education, Patient/Caregiver Education, Self-Care/Home Management,Soft Tissue Mobilization,Taping, Therapeutic Activities, Therapeutic Exercises Modalities Electric Stimulation,Hot Packs ,Infrared Therapy,Ultrasound Next Visit Focus/Plan Next Note Type Treatment Note Next Visit Plan Initiate recumbent elliptical and review HEP, re-check SLR right, any manual work to help with edema
--- NOTE | 2020-07-14 16:14 | PT.OPPOC ---
Physical, Occupational & Speech Therapy At [facility] Current Diagnoses Unilateral primary osteoarthritis, right knee (07/14/20) Visit Care Team Role Provider Type Ryan Bryan MD Family Provider Physician Primary Care Provider Specialty: Family Practice Address: [address] [place] [address], [id number] Email: [email or web address] Stevie Leigh MD Attending Provider Physician Referring Provider Specialty: Orthopedic Surgery Address: [address] [place] [address], [id number] Email: [email or web address] Plan Of Care PT-OP-T Assessment and Plan Start: 07/14/20 07:30 Freq: Status: Active Protocol: Document 07/14/20 09:50 MB (Rec: 07/14/20 16:07 MB [id number]) Physical Therapy Assessment Rehab Potential Rehabilitation Potential Fair Evaluation Complexity Number of Personal Factors/Comorbidities 3 or More Number of Body Systems Impaired 1-2 Clinical Presentation at Evaluation Stable Impairments Impairments Activity Tolerance,Balance, Coordination,Edema,Functional Activities,Functional Mobility ,Gait,Integument,Pain,Posture, ROM,Soft Tissue Mobility, Strength,Transfers Other Impairments Personal factors include: pt lives at home alone and has to find rides from friends for PT, self-limiting behaviors when PT suggests compression hose (pt states that he cannot pull them up), refusal for any right LE MMT d/t fear of pain and questionable compliance with AD use education. Pt states that he does not like pain and that he is frustrated with his operative process so far. Goals 6 Engineer Station Mainline Goal (LTG) Pt will perform progressive HEP with I to improve ROM, flexibility, gait and strength by 09/13/2020. LTG Duration 8 weeks 5 Alf Goal (LTG) Pt will gait train at least 1400 feet in 6 minutes without AD to improve community ambulation by 09/15/2020. LTG Duration 8 weeks Four Engineer Station Mainline Goal (LTG) Pt will present with an improved LEF score to reflect no more than 20% impairment to reflect improved functional mobility by 09/15/2020. LTG Duration 8 weeks Three Engineer Station Mainline Goal (LTG) Pt will present with improved right knee AROM from 0-120 deg to improve transfers by 2020. LTG Duration 8 weeks Two Impairment Pt requires max A to don right shoe today Alf Goal (LTG) Pt will don shoes and socks I to improve functional independence by 08/13/2020. LTG Duration 4 weeks One Engineer Station Mainline Goal (LTG) Pt will perform 12 reps sit to stand without UE support in 30 sec to improve functional strength by 09/15/2020. LTG Duration 8 weeks Assessment Summary Assessment Pt is a 69 y/o male presenting with reports of high right knee pain that requires him to take pain medication and does not allow him to put on his shoe or put on compression hose. He also asks PT not to MMT any right LE joint today d /t fear of pain. He presents gait training with SPC in his right hand and is initially resistant to trying it in his left hand but he does try at the end of treatment. He presents with very limited right knee AROM 15-35 deg and inability to relax leg into extension on the mat. He c/o swelling that is a barrier to range, per his report. He expresses frustration with his surgical process to this point and does not know when his first post-op appointment is. He states that he wanted to drive 7 days post-op ( tomorrow). PT educates him that he should follow-up with surgeon about driving. He lives at home alone and has trouble getting help at home and rides to therapy. He states that his brain is off from having to take pain medication. He will benefit from PT to improve range, function, strength and gait. Barriers to PT include self- limiting behaviors, poor insight to safety, reluctance to follow-through with PT education and high reports of pain. Physical Therapy Plan Frequency and Duration Frequency of Treatment 2x/Week Duration of Treatment 8 weeks Plan of Care Start Date 07/14/20 Plan of Care End Date 09/15/20 Therapeutic Interventions Therapeutic Interventions Balance Training,Canalithic Repositioning,Gait Training, Home Exercise Program,Joint Mobilizations,Manual Therapy, Neuromuscular Re-education, Patient/Caregiver Education, Self-Care/Home Management,Soft Tissue Mobilization,Taping, Therapeutic Activities, Therapeutic Exercises Modalities Electric Stimulation,Hot Packs ,Infrared Therapy,Ultrasound Next Visit Focus/Plan Next Note Type Treatment Note Next Visit Plan Initiate recumbent elliptical and review HEP, re-check SLR right, any manual work to help with edema Plan of Care Dates Plan of Care Start Date 07/14/20 Plan of Care End Date 09/15/20 Electronically Signed by: Linnette Arthur, PT 07/14/20 0427 Please Sign and Return: I have reviewed this Plan of Care and certify that the skilled therapy services above are required to meet the patient?s needs. Physician Signature Date Printed Name and Credentials Clinical Instructor Signature Printed Name and Credentials
--- NOTE | 2020-07-16 10:56 | PT-OP ANOTE ---
PT noted that pt cancelled appointment today. Upon investigation into the EMR, he went to primary care and ER after PT eval this week. He got an RLE US that was negative for DVT that revealed a Watkins's cyst behind his right knee. He went to the ER later and x-ray of right knee was negative. Pt's concerns were right LE edema and pain. He has not yet followed-up up post-op with orthopedic surgeon. PT called pt's cell and left message.
--- NOTE | 2020-07-21 16:07 | PT.OTN ---
Current Diagnoses Unilateral primary osteoarthritis, right knee (07/21/20) Physical Therapy Treatment Note PT-OP-A Visit Information Start: 07/14/20 07:30 Freq: Status: Active Protocol: Document 07/21/20 15:15 HH (Rec: 07/21/20 16:07 HH [id number]) Out-Patient Physical Therapy Visit Information Visit Information Visit Type Treatment Note Visit Start Time 15:15 Visit Stop Time 16:00 Total Visit Minutes 45 Visit Number 2 PT-OP-B Current Condition Start: 07/14/20 07:30 Freq: Status: Active Protocol: Document 07/14/20 09:50 MB (Rec: 07/14/20 10:07 MB [id number]) Current Condition History of Current Condition Onset Date 07/08/2020 Current Complaints Right leg swelling is stopping me from getting any more movement History of Current Condition R partial total knee surgery, medial side on 07/08/2020. Pt reports he had PT before surgery and had to stop. Pt states that in the winter 2019 , he hurt his knee when shoveling show after it was put in front of his driveway by the [employer]. Pt carries straight cane on the right side and is not open to carrying the cane in his left hand. He has a lot of pain in his right knee on the front, side and back of knee. He rates pain up to 5/10. He is icing 6x/day. He spends most of the day lying on his back with leg up on coffee table. He lives alone, he has a single story home, w/c accessibility. He has a rollator that he uses at home when he needs it. This is his first time away from home. He got a ride to PT. 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 He is concerned about how the process has been going as far as surgical visits and follow- up. Pt has not been performing many exercises since surgery d /t pain. He has a recumbent bike and has not been able to do it. Pt is taking pain medication that is making him sleep a lot and have trouble thinking like he would like to . Prior Treatments and Tests PT before surgery. Pt states that US and head was helpful. Treatment Goals Patient/Caregiver Goals To get back to be able to do what I could do before. This includes riding my motorcycle and flying. My leg has to work . PT-OP-C Subjective Start: 07/14/20 07:30 Freq: Status: Active Protocol: Document 07/21/20 15:15 HH (Rec: 07/21/20 16:07 HH [id number]) OP-PT Subjective Patient Comments Patient Comments Im very frustrated at this point because penny been doing what i need to do and nothing helps. PT-OP-D Balance Start: 07/14/20 07:30 Freq: Status: Active Protocol: Document 07/14/20 09:50 MB (Rec: 07/14/20 16:07 MB [id number]) OP-PT Balance Assessment Sitting Balance Static Sitting Balance Ability Good Dynamic Sitting Balance Ability Good Sitting Balance Comments UE support for dynamic sitting balance and pt cannot tolerate sit to stands today Standing Balance Static Standing Balance Ability Poor Dynamic Standing Balance Ability Poor Standing Balance Comments Pt uses SPC or reaches for mat for standing Carranza Fall Scale Copyright Permission PT-OP-G Mobility & Gait Start: 07/14/20 07:30 Freq: Status: Active Protocol: Document 07/14/20 09:50 MB (Rec: 07/14/20 16:07 MB [id number]) OP Gait Assessment Gait Gait Assistance Required: Independent Distance (Feet) 50 Assistive Devices Assistive Device Straight Cane Orthotic/Prosthetic Devices or Brace: No Gait Deviations General Gait Pattern Antalgic,Decreased Stride Length,Decreased Feet Clearance,Flexed Trunk,Lateral Trunk Lean,Step-to Gait Factors Limiting Gait Function Factors Limiting Gait Function Decreased Strength,Limited Range of Motion,Pain,Poor Balance,Poor Safety Awareness Comments Gait Comments Pt arrives using SPC in right hand and when PT suggests that he try in his left hand in order to unweight right LE, he states, I'm not going to do that. Pt does agree to try this after assessment. His gait is less antalgic with SPC in left hand. PT-OP-K Range of Motion Start: 07/14/20 07:30 Freq: Status: Active Protocol: Document 07/14/20 09:50 MB (Rec: 07/14/20 16:07 MB [id number]) Knee Goniometric Range of Motion Knee Right Knee ROM WFL No Patient Position Supine Flexion Active (degrees) 35 Extension Active (degrees) 15 Comments AROM 15-35 deg Left Knee ROM WFL Yes Patient Position Supine Flexion Active (degrees) 120 Extension Active (degrees) 0 Comments AROM 0-120 deg PT-OP-M Strength Start: 07/14/20 07:30 Freq: Status: Active Protocol: Document 07/14/20 09:50 MB (Rec: 07/14/20 16:07 MB [id number]) Hip Strength Hip Manual Muscle Testing Right Comments Pt states that he does not want PT to MMT his right LE today d/t fear of increasing pain in his right leg Left Flexion (L2) 5 Normal Extension (S1) 4 Good Comments Pt supine Knee Strength Knee Manual Muscle Testing Right Comments Pt states that he does not want PT to MMT his right LE today d/t fear of increasing pain in his right leg Left Flexion (S2) 5 Normal Extension (L3) 5 Normal Ankle/Foot Strength Ankle and Foot Manual Muscle Testing Left Dorsiflexion (L4) 5 Normal Right Comments Pt states that he does not want PT to MMT his right LE today d/t fear of increasing pain in his right leg Toe Strength Toe Manual Muscle Testing Left Great Toe Extension 5 Normal Right Great Toe Comments Pt states that he does not want PT to MMT his right LE today d/t fear of increasing pain in his right leg PT-OP-Q Treatments Start: 07/14/20 07:30 Freq: Status: Active Protocol: Document 07/21/20 15:15 HH (Rec: 07/21/20 16:07 [id number]) Cardio Equipment Recumbent Stepper (Sci-Fit) Duration (Minutes) 6 Resistance 2 Seat Position 15-14 Other reports reduced tightness towards the end. Therapeutic Exercises Supine Exercises ankle pumps Side bilateral Reps/Minutes 10 x2 Quad set Side bilateral Reps/Minutes 8 x2 R knee AROM Side right Comments 6 x 2 Manual Therapy Treatment Soft Tissue Mobilization swelling management Body Location supine Mobilization Type Rolling,Sustained Pressure, Trigger Point Release Intensity/Depth Moderate Body Position Supine Comments proximal stroke from ankle to quad tendness ( ankle > calf > post knee > medial quad) educated pt to use rolling pin at home. PT-OP-T Assessment and Plan Start: 07/14/20 07:30 Freq: Status: Active Protocol: Document 07/21/20 15:15 HH (Rec: 07/21/20 16:07 [id number]) Physical Therapy Assessment Goals 6 [employer] Goal (LTG) Pt will perform progressive HEP with I to improve ROM, flexibility, gait and strength by 09/13/2020. LTG Duration 8 weeks 5 [employer] Goal (LTG) Pt will gait train at least 1400 feet in 6 minutes without AD to improve community ambulation by 09/15/2020. LTG Duration 8 weeks Four Jail Goal (LTG) Pt will present with an improved LEF score to reflect no more than 20% impairment to reflect improved functional mobility by 09/15/2020. LTG Duration 8 weeks Three Jail Goal (LTG) Pt will present with improved right knee AROM from 0-120 deg to improve transfers by 2020. LTG Duration 8 weeks Two Impairment Pt requires max A to don right shoe today Jail Goal (LTG) Pt will don shoes and socks I to improve functional independence by 08/13/2020. LTG Duration 4 weeks One [employer] Goal (LTG) Pt will perform 12 reps sit to stand without UE support in 30 sec to improve functional strength by 09/15/2020. LTG Duration 8 weeks Assessment Summary Assessment Pt came in with frustraction d /t his lack of progress. his supine knee flexion = 72 degrees only but was able to reach 85 degrees in both supine and seated positions at the end of session. Tx focused primarily on swelling management with proximal strokes and educated pt to use rolling pin at home as well. Physical Therapy Plan Frequency and Duration Frequency of Treatment 2x/Week Duration of Treatment 8 weeks Plan of Care Start Date 07/14/20 Plan of Care End Date 09/15/20 Next Visit Focus/Plan Next Note Type Treatment Note Next Visit Plan Initiate recumbent elliptical and review HEP, re-check SLR right, any manual work to help with edema
--- NOTE | 2020-07-28 10:36 | PT.OTN ---
Current Diagnoses Unilateral primary osteoarthritis, right knee (07/28/20) Physical Therapy Treatment Note PT-OP-A Visit Information Start: 07/14/20 07:30 Freq: Status: Active Protocol: Document 07/28/20 09:45 MB (Rec: 07/28/20 10:35 MB [id number]) Out-Patient Physical Therapy Visit Information Visit Information Visit Type Treatment Note Visit Start Time 09:45 Visit Stop Time 10:30 Total Visit Minutes 45 Visit Number 3 PT-OP-B Current Condition Start: 07/14/20 07:30 Freq: Status: Active Protocol: Document 07/14/20 09:50 MB (Rec: 07/14/20 10:07 MB [id number]) Current Condition History of Current Condition Onset Date 07/08/2020 Current Complaints Right leg swelling is stopping me from getting any more movement History of Current Condition R partial total knee surgery, medial side on 07/08/2020. Pt reports he had PT before surgery and had to stop. Pt states that in the winter 2019 , he hurt his knee when shoveling show after it was put in front of his driveway by the [employer]. Pt carries straight cane on the right side and is not open to carrying the cane in his left hand. He has a lot of pain in his right knee on the front, side and back of knee. He rates pain up to 5/10. He is icing 6x/day. He spends most of the day lying on his back with leg up on coffee table. He lives alone, he has a single story home, w/c accessibility. He has a rollator that he uses at home when he needs it. This is his first time away from home. He got a ride to PT. 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 He is concerned about how the process has been going as far as surgical visits and follow- up. Pt has not been performing many exercises since surgery d /t pain. He has a recumbent bike and has not been able to do it. Pt is taking pain medication that is making him sleep a lot and have trouble thinking like he would like to . Prior Treatments and Tests PT before surgery. Pt states that US and head was helpful. Treatment Goals Patient/Caregiver Goals To get back to be able to do what I could do before. This includes riding my motorcycle and flying. My leg has to work . PT-OP-C Subjective Start: 07/14/20 07:30 Freq: Status: Active Protocol: Document 07/28/20 09:45 MB (Rec: 07/28/20 10:35 MB [id number]) OP-PT Subjective Patient Comments Patient Comments I think the therapy made all the difference. It was painful during and the next day it was so uncomfortable, but it got better. PT-OP-D Balance Start: 07/14/20 07:30 Freq: Status: Active Protocol: Document 07/14/20 09:50 MB (Rec: 07/14/20 16:07 MB [id number]) OP-PT Balance Assessment Sitting Balance Static Sitting Balance Ability Good Dynamic Sitting Balance Ability Good Sitting Balance Comments UE support for dynamic sitting balance and pt cannot tolerate sit to stands today Standing Balance Static Standing Balance Ability Poor Dynamic Standing Balance Ability Poor Standing Balance Comments Pt uses SPC or reaches for mat for standing Carranza Fall Scale Copyright Permission PT-OP-G Mobility & Gait Start: 07/14/20 07:30 Freq: Status: Active Protocol: Document 07/14/20 09:50 MB (Rec: 07/14/20 16:07 MB [id number]) OP Gait Assessment Gait Gait Assistance Required: Independent Distance (Feet) 50 Assistive Devices Assistive Device Straight Cane Orthotic/Prosthetic Devices or Brace: No Gait Deviations General Gait Pattern Antalgic,Decreased Stride Length,Decreased Feet Clearance,Flexed Trunk,Lateral Trunk Lean,Step-to Gait Factors Limiting Gait Function Factors Limiting Gait Function Decreased Strength,Limited Range of Motion,Pain,Poor Balance,Poor Safety Awareness Comments Gait Comments Pt arrives using SPC in right hand and when PT suggests that he try in his left hand in order to unweight right LE, he states, I'm not going to do that. Pt does agree to try this after assessment. His gait is less antalgic with SPC in left hand. PT-OP-K Range of Motion Start: 07/14/20 07:30 Freq: Status: Active Protocol: Document 07/14/20 09:50 MB (Rec: 07/14/20 16:07 MB [id number]) Knee Goniometric Range of Motion Knee Right Knee ROM WFL No Patient Position Supine Flexion Active (degrees) 35 Extension Active (degrees) 15 Comments AROM 15-35 deg Left Knee ROM WFL Yes Patient Position Supine Flexion Active (degrees) 120 Extension Active (degrees) 0 Comments AROM 0-120 deg PT-OP-M Strength Start: 07/14/20 07:30 Freq: Status: Active Protocol: Document 07/14/20 09:50 MB (Rec: 07/14/20 16:07 MB [id number]) Hip Strength Hip Manual Muscle Testing Right Comments Pt states that he does not want PT to MMT his right LE today d/t fear of increasing pain in his right leg Left Flexion (L2) 5 Normal Extension (S1) 4 Good Comments Pt supine Knee Strength Knee Manual Muscle Testing Right Comments Pt states that he does not want PT to MMT his right LE today d/t fear of increasing pain in his right leg Left Flexion (S2) 5 Normal Extension (L3) 5 Normal Ankle/Foot Strength Ankle and Foot Manual Muscle Testing Left Dorsiflexion (L4) 5 Normal Right Comments Pt states that he does not want PT to MMT his right LE today d/t fear of increasing pain in his right leg Toe Strength Toe Manual Muscle Testing Left Great Toe Extension 5 Normal Right Great Toe Comments Pt states that he does not want PT to MMT his right LE today d/t fear of increasing pain in his right leg PT-OP-Q Treatments Start: 07/14/20 07:30 Freq: Status: Active Protocol: Document 07/28/20 09:45 MB (Rec: 07/28/20 10:35 MB [id number]) Cardio Equipment Recumbent Elliptical ([email or web address]) Duration (Minutes) 10 Resistance 2 Seat Position 12 Manual Therapy Treatment Other Other Manual Treatments STM right LE from ankle up to proximal knee, lavage, gentle patellar mobs Self-Care/Home Management Treatment Education Other Education Measured pt and ed him on benefits of 15-20 mmHg compression hose, thigh high, to help with edema and pain PT-OP-T Assessment and Plan Start: 07/14/20 07:30 Freq: Status: Active Protocol: Document 07/28/20 09:45 MB (Rec: 07/28/20 10:35 MB [id number]) Physical Therapy Assessment Rehab Potential Rehabilitation Potential Fair Evaluation Complexity Number of Personal Factors/Comorbidities 3 or More Number of Body Systems Impaired 1-2 Clinical Presentation at Evaluation Stable Impairments Impairments Activity Tolerance,Balance, Coordination,Edema,Functional Activities,Functional Mobility ,Gait,Integument,Pain,Posture, ROM,Soft Tissue Mobility, Strength,Transfers Other Impairments Personal factors include: pt lives at home alone and has to find rides from friends for PT, self-limiting behaviors when PT suggests compression hose (pt states that he cannot pull them up), refusal for any right LE MMT d/t fear of pain and questionable compliance with AD use education. Pt states that he does not like pain and that he is frustrated with his operative process so far. Goals 6 Longterm Goal (LTG) Pt will perform progressive HEP with I to improve ROM, flexibility, gait and strength by 09/13/2020. LTG Duration 8 weeks 5 Longterm Goal (LTG) Pt will gait train at least 1400 feet in 6 minutes without AD to improve community ambulation by 09/15/2020. LTG Duration 8 weeks Four [employer] Goal (LTG) Pt will present with an improved LEF score to reflect no more than 20% impairment to reflect improved functional mobility by 09/15/2020. LTG Duration 8 weeks Three Longterm Goal (LTG) Pt will present with improved right knee AROM from 0-120 deg to improve transfers by 2020. LTG Duration 8 weeks Two Impairment Pt requires max A to don right shoe today Longterm Goal (LTG) Pt will don shoes and socks I to improve functional independence by 08/13/2020. LTG Duration 4 weeks One [employer] Goal (LTG) Pt will perform 12 reps sit to stand without UE support in 30 sec to improve functional strength by 09/15/2020. LTG Duration 8 weeks Assessment Summary Assessment Pt's right leg is less edematous and his skin color and temperature is much better . He is gait training without AD. Con't progression Physical Therapy Plan Frequency and Duration Frequency of Treatment 2x/Week Duration of Treatment 8 weeks Plan of Care Start Date 07/14/20 Plan of Care End Date 09/15/20 Therapeutic Interventions Therapeutic Interventions Balance Training,Canalithic Repositioning,Gait Training, Home Exercise Program,Joint Mobilizations,Manual Therapy, Neuromuscular Re-education, Patient/Caregiver Education, Self-Care/Home Management,Soft Tissue Mobilization,Taping, Therapeutic Activities, Therapeutic Exercises Modalities Electric Stimulation,Hot Packs ,Infrared Therapy,Ultrasound Next Visit Focus/Plan Next Note Type Treatment Note Next Visit Plan Progress to upright bike, review what exercises he is doing at home and progressive manual work
--- NOTE | 2020-07-31 10:45 | PT.OTN ---
Current Diagnoses Unilateral primary osteoarthritis, right knee (07/31/20) Physical Therapy Treatment Note PT-OP-A Visit Information Start: 07/14/20 07:30 Freq: Status: Active Protocol: Document 07/31/20 09:54 SP (Rec: 07/31/20 11:20 SP [id number]) Out-Patient Physical Therapy Visit Information Visit Information Visit Type Treatment Note Visit Start Time 09:54 Visit Stop Time 10:45 Total Visit Minutes 51 Visit Number 4 Number of THREADING MACHINE SETTER Visits 1 PT-OP-B Current Condition Start: 07/14/20 07:30 Freq: Status: Active Protocol: Document 07/14/20 09:50 MB (Rec: 07/14/20 10:07 MB [id number]) Current Condition History of Current Condition Onset Date 07/08/2020 Current Complaints Right leg swelling is stopping me from getting any more movement History of Current Condition R partial total knee surgery, medial side on 07/08/2020. Pt reports he had PT before surgery and had to stop. Pt states that in the winter 2019 , he hurt his knee when shoveling show after it was put in front of his driveway by the [facility]. Pt carries straight cane on the right side and is not open to carrying the cane in his left hand. He has a lot of pain in his right knee on the front, side and back of knee. He rates pain up to 5/10. He is icing 6x/day. He spends most of the day lying on his back with leg up on coffee table. He lives alone, he has a single story home, w/c accessibility. He has a rollator that he uses at home when he needs it. This is his first time away from home. He got a ride to PT. 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 He is concerned about how the process has been going as far as surgical visits and follow- up. Pt has not been performing many exercises since surgery d /t pain. He has a recumbent bike and has not been able to do it. Pt is taking pain medication that is making him sleep a lot and have trouble thinking like he would like to . Prior Treatments and Tests PT before surgery. Pt states that US and head was helpful. Treatment Goals Patient/Caregiver Goals To get back to be able to do what I could do before. This includes riding my motorcycle and flying. My leg has to work . PT-OP-C Subjective Start: 07/14/20 07:30 Freq: Status: Active Protocol: Document 07/31/20 09:54 SP (Rec: 07/31/20 11:20 SP [id number]) OP-PT Subjective Patient Comments Patient Comments Pt reported increased pain 8/ 10 post last tx through the day and decreased to 6/10 by morning. Went for a 2 mile walk the next day and it was very painful at furthest distance. I wish I had a chair to wheel me back. PT-OP-D Balance Start: 07/14/20 07:30 Freq: Status: Active Protocol: Document 07/14/20 09:50 MB (Rec: 07/14/20 16:07 MB [id number]) OP-PT Balance Assessment Sitting Balance Static Sitting Balance Ability Good Dynamic Sitting Balance Ability Good Sitting Balance Comments UE support for dynamic sitting balance and pt cannot tolerate sit to stands today Standing Balance Static Standing Balance Ability Poor Dynamic Standing Balance Ability Poor Standing Balance Comments Pt uses SPC or reaches for mat for standing Carranza Fall Scale Copyright Permission PT-OP-G Mobility & Gait Start: 07/14/20 07:30 Freq: Status: Active Protocol: Document 07/14/20 09:50 MB (Rec: 07/14/20 16:07 MB [id number]) OP Gait Assessment Gait Gait Assistance Required: Independent Distance (Feet) 50 Assistive Devices Assistive Device Straight Cane Orthotic/Prosthetic Devices or Brace: No Gait Deviations General Gait Pattern Antalgic,Decreased Stride Length,Decreased Feet Clearance,Flexed Trunk,Lateral Trunk Lean,Step-to Gait Factors Limiting Gait Function Factors Limiting Gait Function Decreased Strength,Limited Range of Motion,Pain,Poor Balance,Poor Safety Awareness Comments Gait Comments Pt arrives using SPC in right hand and when PT suggests that he try in his left hand in order to unweight right LE, he states, I'm not going to do that. Pt does agree to try this after assessment. His gait is less antalgic with SPC in left hand. PT-OP-K Range of Motion Start: 07/14/20 07:30 Freq: Status: Active Protocol: Document 07/31/20 09:54 SP (Rec: 07/31/20 11:20 SP [id number]) Knee Goniometric Range of Motion Knee Right Patient Position Supine Flexion Active (degrees) 105 Extension Active (degrees) 5 PT-OP-M Strength Start: 07/14/20 07:30 Freq: Status: Active Protocol: Document 07/14/20 09:50 MB (Rec: 07/14/20 16:07 MB [id number]) Hip Strength Hip Manual Muscle Testing Right Comments Pt states that he does not want PT to MMT his right LE today d/t fear of increasing pain in his right leg Left Flexion (L2) 5 Normal Extension (S1) 4 Good Comments Pt supine Knee Strength Knee Manual Muscle Testing Right Comments Pt states that he does not want PT to MMT his right LE today d/t fear of increasing pain in his right leg Left Flexion (S2) 5 Normal Extension (L3) 5 Normal Ankle/Foot Strength Ankle and Foot Manual Muscle Testing Left Dorsiflexion (L4) 5 Normal Right Comments Pt states that he does not want PT to MMT his right LE today d/t fear of increasing pain in his right leg Toe Strength Toe Manual Muscle Testing Left Great Toe Extension 5 Normal Right Great Toe Comments Pt states that he does not want PT to MMT his right LE today d/t fear of increasing pain in his right leg PT-OP-Q Treatments Start: 07/14/20 07:30 Freq: Status: Active Protocol: Document 07/31/20 09:54 SP (Rec: 07/31/20 11:20 SP [id number]) Therapeutic Exercises Supine Exercises Heel slides Side right Equipment Used Sm 55cm red indian ball/gait belt Reps/Minutes 10x Comments * measure next tx in this position Hamstring /IT band stretch Side right Equipment Used Gait belt Reps/Minutes 2x30s Comments cued pt to hold and not bounce Quad set Side right Equipment Used foot propped on 1/2 foam roller Reps/Minutes 10x R knee AROM Side right Comments 6 x 2 Prone Exercises knee flexion Prone Exercise Name add HEP Side right Reps/Minutes x5 Comments cued slow and tolerant range, not far secondary to HS cramping prone hang Prone Exercise Name add HEP Side right Reps/Minutes 30 x2 Sitting Exercises Rolling pin Sitting Exercise Name IT band, quads, hamstrings Side bilateral Equipment Used Rolling pin Reps/Minutes 6 min Manual Therapy Treatment Other Other Manual Treatments Gentle R knee patellar mobs and scar mobs PT-OP-T Assessment and Plan Start: 07/14/20 07:30 Freq: Status: Active Protocol: Document 07/31/20 09:54 SP (Rec: 07/31/20 11:20 SP [id number]) Physical Therapy Assessment Goals 6 Mcc Goal (LTG) Pt will perform progressive HEP with I to improve ROM, flexibility, gait and strength by 09/13/2020. LTG Duration 8 weeks 5 Mcc Goal (LTG) Pt will gait train at least 1400 feet in 6 minutes without AD to improve community ambulation by 09/15/2020. LTG Duration 8 weeks Four Mcc Goal (LTG) Pt will present with an improved LEF score to reflect no more than 20% impairment to reflect improved functional mobility by 09/15/2020. LTG Duration 8 weeks Three Head Teller Goal (LTG) Pt will present with improved right knee AROM from 0-120 deg to improve transfers by 2020. 07/31/20 Progressin-105 deg R knee AROM. LTG Duration 8 weeks Two Impairment Pt requires max A to don right shoe today Head Teller Goal (LTG) Pt will don shoes and socks I to improve functional independence by 08/13/2020. 07/31/20 progressing: able to don ankle socks only and slip on shoes in loose position I. LTG Duration 4 weeks One Head Teller Goal (LTG) Pt will perform 12 reps sit to stand without UE support in 30 sec to improve functional strength by 09/15/2020. LTG Duration 8 weeks Progress Towards Goals Progress Towards Goals Progressing Toward Goals,Slow Progress due to Activity Tolerance Progress Comments Pt is able to walk further distances on [place], not realizing perform shorter distances and can do laps, educated use of benches for rest breaks. Pt making gains in AROM: gained 10 deg of extension and 70 deg of flexion. Assessment Summary Assessment Tx today continued use of rolling stick for self STMs to Vastus Lateralis, ITB, HS with good response of decreased tingling in muscle tightness noted when arrived. Initiated ITB stretch using strap, prone hang to improve flexibility for walking in the community. Pt reported felt good end of tx and no pain. Physical Therapy Plan Frequency and Duration Frequency of Treatment 2x/Week Duration of Treatment 8 weeks Plan of Care Start Date 07/14/20 Plan of Care End Date 09/15/20 Therapeutic Interventions Therapeutic Interventions Balance Training,Canalithic Repositioning,Gait Training, Home Exercise Program,Joint Mobilizations,Manual Therapy, Neuromuscular Re-education, Patient/Caregiver Education, Self-Care/Home Management,Soft Tissue Mobilization,Taping, Therapeutic Activities, Therapeutic Exercises Modalities Electric Stimulation,Hot Packs ,Infrared Therapy,Ultrasound Next Visit Focus/Plan Next Note Type Treatment Note Next Visit Plan Assess response to last tx self manual rolling pin, ROM wht strap, streching, Prone hang. Continue per PT POC: Progress to upright bike next tx, review what exercises he is doing at home and progressive manual work
--- NOTE | 2020-08-05 08:16 | PT.OTN ---
Current Diagnoses Unilateral primary osteoarthritis, right knee (08/05/20) Physical Therapy Treatment Note PT-OP-A Visit Information Start: 07/14/20 07:30 Freq: Status: Active Protocol: Document 08/05/20 07:30 MB (Rec: 08/05/20 07:49 MB [id number]) Out-Patient Physical Therapy Visit Information Visit Information Visit Type Treatment Note Visit Start Time 07:30 Visit Stop Time 08:12 Total Visit Minutes 42 Visit Number 5 PT-OP-B Current Condition Start: 07/14/20 07:30 Freq: Status: Active Protocol: Document 07/14/20 09:50 MB (Rec: 07/14/20 10:07 MB [id number]) Current Condition History of Current Condition Onset Date 07/08/2020 Current Complaints Right leg swelling is stopping me from getting any more movement History of Current Condition R partial total knee surgery, medial side on 07/08/2020. Pt reports he had PT before surgery and had to stop. Pt states that in the winter 2019 , he hurt his knee when shoveling show after it was put in front of his driveway by the [email or web address]. Pt carries straight cane on the right side and is not open to carrying the cane in his left hand. He has a lot of pain in his right knee on the front, side and back of knee. He rates pain up to 5/10. He is icing 6x/day. He spends most of the day lying on his back with leg up on coffee table. He lives alone, he has a single story home, w/c accessibility. He has a rollator that he uses at home when he needs it. This is his first time away from home. He got a ride to PT. 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 He is concerned about how the process has been going as far as surgical visits and follow- up. Pt has not been performing many exercises since surgery d /t pain. He has a recumbent bike and has not been able to do it. Pt is taking pain medication that is making him sleep a lot and have trouble thinking like he would like to . Prior Treatments and Tests PT before surgery. Pt states that US and head was helpful. Treatment Goals Patient/Caregiver Goals To get back to be able to do what I could do before. This includes riding my motorcycle and flying. My leg has to work . PT-OP-C Subjective Start: 07/14/20 07:30 Freq: Status: Active Protocol: Document 08/05/20 07:30 MB (Rec: 08/05/20 07:49 MB [id number]) OP-PT Subjective Patient Comments Patient Comments Pt reports really sharp pain on his inferior right knee when he goes to stand up from the bed or get up in general. The pain takes 30-40 sec to resolve. He has to stand there and then he can do something. He says that every therapist says he is doing differently. He thought that his knee would be better than this at this point. He had to use a low commode once. He saw the chiropractor right after therapy last week and he states that he is helping him as well. PT-OP-D Balance Start: 07/14/20 07:30 Freq: Status: Active Protocol: Document 07/14/20 09:50 MB (Rec: 07/14/20 16:07 MB [id number]) OP-PT Balance Assessment Sitting Balance Static Sitting Balance Ability Good Dynamic Sitting Balance Ability Good Sitting Balance Comments UE support for dynamic sitting balance and pt cannot tolerate sit to stands today Standing Balance Static Standing Balance Ability Poor Dynamic Standing Balance Ability Poor Standing Balance Comments Pt uses SPC or reaches for mat for standing Carranza Fall Scale Copyright Permission PT-OP-G Mobility & Gait Start: 07/14/20 07:30 Freq: Status: Active Protocol: Document 07/14/20 09:50 MB (Rec: 07/14/20 16:07 MB [id number]) OP Gait Assessment Gait Gait Assistance Required: Independent Distance (Feet) 50 Assistive Devices Assistive Device Straight Cane Orthotic/Prosthetic Devices or Brace: No Gait Deviations General Gait Pattern Antalgic,Decreased Stride Length,Decreased Feet Clearance,Flexed Trunk,Lateral Trunk Lean,Step-to Gait Factors Limiting Gait Function Factors Limiting Gait Function Decreased Strength,Limited Range of Motion,Pain,Poor Balance,Poor Safety Awareness Comments Gait Comments Pt arrives using SPC in right hand and when PT suggests that he try in his left hand in order to unweight right LE, he states, I'm not going to do that. Pt does agree to try this after assessment. His gait is less antalgic with SPC in left hand. PT-OP-K Range of Motion Start: 07/14/20 07:30 Freq: Status: Active Protocol: Document 07/31/20 09:54 SP (Rec: 07/31/20 11:20 SP [id number]) Knee Goniometric Range of Motion Knee Right Patient Position Supine Flexion Active (degrees) 105 Extension Active (degrees) 5 PT-OP-M Strength Start: 07/14/20 07:30 Freq: Status: Active Protocol: Document 07/14/20 09:50 MB (Rec: 07/14/20 16:07 MB [id number]) Hip Strength Hip Manual Muscle Testing Right Comments Pt states that he does not want PT to MMT his right LE today d/t fear of increasing pain in his right leg Left Flexion (L2) 5 Normal Extension (S1) 4 Good Comments Pt supine Knee Strength Knee Manual Muscle Testing Right Comments Pt states that he does not want PT to MMT his right LE today d/t fear of increasing pain in his right leg Left Flexion (S2) 5 Normal Extension (L3) 5 Normal Ankle/Foot Strength Ankle and Foot Manual Muscle Testing Left Dorsiflexion (L4) 5 Normal Right Comments Pt states that he does not want PT to MMT his right LE today d/t fear of increasing pain in his right leg Toe Strength Toe Manual Muscle Testing Left Great Toe Extension 5 Normal Right Great Toe Comments Pt states that he does not want PT to MMT his right LE today d/t fear of increasing pain in his right leg PT-OP-Q Treatments Start: 07/14/20 07:30 Freq: Status: Active Protocol: Document 08/05/20 07:30 MB (Rec: 08/05/20 07:49 MB [id number]) Cardio Equipment Recumbent Elliptical (BiodSpout) Duration (Minutes) 13 Resistance 1 Manual Therapy Treatment Other Other Manual Treatments Gentle right patellar mobs, gentle scar mobs, STM right vastus lateralis, rectus femoris, medialis, posterior knee, MWM with pt performing active HS and PT providing trigger point pressure PT-OP-T Assessment and Plan Start: 07/14/20 07:30 Freq: Status: Active Protocol: Document 08/05/20 07:30 MB (Rec: 08/05/20 07:49 MB [id number]) Physical Therapy Assessment Rehab Potential Rehabilitation Potential Fair Evaluation Complexity Number of Personal Factors/Comorbidities 3 or More Number of Body Systems Impaired 1-2 Clinical Presentation at Evaluation Stable Impairments Impairments Activity Tolerance,Balance, Coordination,Edema,Functional Activities,Functional Mobility ,Gait,Integument,Pain,Posture, ROM,Soft Tissue Mobility, Strength,Transfers Other Impairments Personal factors include: pt lives at home alone and has to find rides from friends for PT, self-limiting behaviors when PT suggests compression hose (pt states that he cannot pull them up), refusal for any right LE MMT d/t fear of pain and questionable compliance with AD use education. Pt states that he does not like pain and that he is frustrated with his operative process so far. Goals 6 Penitentiary Goal (LTG) Pt will perform progressive HEP with I to improve ROM, flexibility, gait and strength by 09/13/2020. LTG Duration 8 weeks 5 Penitentiary Goal (LTG) Pt will gait train at least 1400 feet in 6 minutes without AD to improve community ambulation by 09/15/2020. LTG Duration 8 weeks Four Fairground Operator Goal (LTG) Pt will present with an improved LEF score to reflect no more than 20% impairment to reflect improved functional mobility by 09/15/2020. LTG Duration 8 weeks Three Fairground Operator Goal (LTG) Pt will present with improved right knee AROM from 0-120 deg to improve transfers by 2020. LTG Duration 8 weeks Two Impairment Pt requires max A to don right shoe today Penitentiary Goal (LTG) Pt will don shoes and socks I to improve functional independence by 08/13/2020. LTG Duration 4 weeks One Fairground Operator Goal (LTG) Pt will perform 12 reps sit to stand without UE support in 30 sec to improve functional strength by 09/15/2020. LTG Duration 8 weeks Assessment Summary Assessment Pt may have unrealistic expections about how he should be doing not quite 4 weeks out of hemiarthroplasty. He is surprised about inferior knee pain and muscle soreness. His right leg skin and edema are better. He states that he is walking more. He responds well to manual work. Physical Therapy Plan Frequency and Duration Frequency of Treatment 2x/Week Duration of Treatment 8 weeks Plan of Care Start Date 07/14/20 Plan of Care End Date 09/15/20 Therapeutic Interventions Therapeutic Interventions Balance Training,Canalithic Repositioning,Gait Training, Home Exercise Program,Joint Mobilizations,Manual Therapy, Neuromuscular Re-education, Patient/Caregiver Education, Self-Care/Home Management,Soft Tissue Mobilization,Taping, Therapeutic Activities, Therapeutic Exercises Modalities Electric Stimulation,Hot Packs ,Infrared Therapy,Ultrasound Next Visit Focus/Plan Next Note Type Treatment Note Next Visit Plan Review prone hand and ITB stretches. Progress to upright bike if able. Con't manual work. In future treatments, progress HEP including Kade stretch.
--- NOTE | 2020-08-07 11:18 | PT.OTN ---
Current Diagnoses Unilateral primary osteoarthritis, right knee (08/07/20) Physical Therapy Treatment Note PT-OP-A Visit Information Start: 07/14/20 07:30 Freq: Status: Active Protocol: Document 08/07/20 09:52 LRN (Rec: 08/07/20 10:38 LRN [id number]) Out-Patient Physical Therapy Visit Information Visit Information Visit Type Treatment Note Visit Start Time 09:52 Visit Stop Time 10:44 Total Visit Minutes 52 Visit Number 6 PT-OP-B Current Condition Start: 07/14/20 07:30 Freq: Status: Active Protocol: Document 07/14/20 09:50 MB (Rec: 07/14/20 10:07 MB [id number]) Current Condition History of Current Condition Onset Date 07/08/2020 Current Complaints Right leg swelling is stopping me from getting any more movement History of Current Condition R partial total knee surgery, medial side on 07/08/2020. Pt reports he had PT before surgery and had to stop. Pt states that in the winter 2019 , he hurt his knee when shoveling show after it was put in front of his driveway by the [employer]. Pt carries straight cane on the right side and is not open to carrying the cane in his left hand. He has a lot of pain in his right knee on the front, side and back of knee. He rates pain up to 5/10. He is icing 6x/day. He spends most of the day lying on his back with leg up on coffee table. He lives alone, he has a single story home, w/c accessibility. He has a rollator that he uses at home when he needs it. This is his first time away from home. He got a ride to PT. 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 He is concerned about how the process has been going as far as surgical visits and follow- up. Pt has not been performing many exercises since surgery d /t pain. He has a recumbent bike and has not been able to do it. Pt is taking pain medication that is making him sleep a lot and have trouble thinking like he would like to . Prior Treatments and Tests PT before surgery. Pt states that US and head was helpful. Treatment Goals Patient/Caregiver Goals To get back to be able to do what I could do before. This includes riding my motorcycle and flying. My leg has to work . PT-OP-C Subjective Start: 07/14/20 07:30 Freq: Status: Active Protocol: Document 08/07/20 09:52 LRN (Rec: 08/07/20 10:38 LRN [id number]) OP-PT Subjective Patient Comments Patient Comments States he is better after last treatment. PT-OP-D Balance Start: 07/14/20 07:30 Freq: Status: Active Protocol: Document 07/14/20 09:50 MB (Rec: 07/14/20 16:07 MB [id number]) OP-PT Balance Assessment Sitting Balance Static Sitting Balance Ability Good Dynamic Sitting Balance Ability Good Sitting Balance Comments UE support for dynamic sitting balance and pt cannot tolerate sit to stands today Standing Balance Static Standing Balance Ability Poor Dynamic Standing Balance Ability Poor Standing Balance Comments Pt uses SPC or reaches for mat for standing Carranza Fall Scale Copyright Permission PT-OP-G Mobility & Gait Start: 07/14/20 07:30 Freq: Status: Active Protocol: Document 07/14/20 09:50 MB (Rec: 07/14/20 16:07 MB [id number]) OP Gait Assessment Gait Gait Assistance Required: Independent Distance (Feet) 50 Assistive Devices Assistive Device Straight Cane Orthotic/Prosthetic Devices or Brace: No Gait Deviations General Gait Pattern Antalgic,Decreased Stride Length,Decreased Feet Clearance,Flexed Trunk,Lateral Trunk Lean,Step-to Gait Factors Limiting Gait Function Factors Limiting Gait Function Decreased Strength,Limited Range of Motion,Pain,Poor Balance,Poor Safety Awareness Comments Gait Comments Pt arrives using SPC in right hand and when PT suggests that he try in his left hand in order to unweight right LE, he states, I'm not going to do that. Pt does agree to try this after assessment. His gait is less antalgic with SPC in left hand. PT-OP-K Range of Motion Start: 07/14/20 07:30 Freq: Status: Active Protocol: Document 07/31/20 09:54 SP (Rec: 07/31/20 11:20 SP [id number]) Knee Goniometric Range of Motion Knee Right Patient Position Supine Flexion Active (degrees) 105 Extension Active (degrees) 5 PT-OP-M Strength Start: 07/14/20 07:30 Freq: Status: Active Protocol: Document 07/14/20 09:50 MB (Rec: 07/14/20 16:07 MB [id number]) Hip Strength Hip Manual Muscle Testing Right Comments Pt states that he does not want PT to MMT his right LE today d/t fear of increasing pain in his right leg Left Flexion (L2) 5 Normal Extension (S1) 4 Good Comments Pt supine Knee Strength Knee Manual Muscle Testing Right Comments Pt states that he does not want PT to MMT his right LE today d/t fear of increasing pain in his right leg Left Flexion (S2) 5 Normal Extension (L3) 5 Normal Ankle/Foot Strength Ankle and Foot Manual Muscle Testing Left Dorsiflexion (L4) 5 Normal Right Comments Pt states that he does not want PT to MMT his right LE today d/t fear of increasing pain in his right leg Toe Strength Toe Manual Muscle Testing Left Great Toe Extension 5 Normal Right Great Toe Comments Pt states that he does not want PT to MMT his right LE today d/t fear of increasing pain in his right leg PT-OP-Q Treatments Start: 07/14/20 07:30 Freq: Status: Active Protocol: Document 08/07/20 09:52 LRN (Rec: 08/07/20 10:38 LRN [id number]) Cardio Equipment Bicycle (Upright) Duration (Minutes) 10 Resistance 1 Seat Position 6 for 5', seat 8 for 3' (foot mid pedal) Therapeutic Exercises Supine Exercises Passive knee hang Supine Exercise Name Passive knee hang into ext, f/ b QS(see above) Reps/Minutes 8' Comments Extra time taken to continually adjust support to prevent knee pain Heel slides Side right Equipment Used gait belt for self assisted Reps/Minutes 10' Comments Active flex 103, Passive flex 106. Extra time taken 4 MWM to dec pn w/flex Quad set Supine Exercise Name QS without ankle DF Side right Equipment Used QS Reps/Minutes 8' Comments Extra time for proper positioning for painfree QS, cuing at ankle Manual Therapy Treatment Soft Tissue Mobilization Scar Body Location R knee scar Mobilization Type Myofascial Release Intensity/Depth Superficial Body Position Supine Self-Care/Home Management Treatment Education Patient Education Joint Protection Other Education Educated pt in knee anatomy using mode for better understanding in joint protection and joint mechanics . Discussed soft tissue healing timeframe and encouraged pt not to press into pain with exercise. PT-OP-R Modalities Start: 07/14/20 07:30 Freq: Status: Active Protocol: Document 08/07/20 09:52 LRN (Rec: 08/07/20 10:38 LRN [id number]) Hot Pack/Cold Pack Treatment Cold Pack Location Cryocuff Patient Position Supine Treatment Duration (minutes) 10 PT-OP-T Assessment and Plan Start: 07/14/20 07:30 Freq: Status: Active Protocol: Document 08/07/20 09:52 LRN (Rec: 08/07/20 10:38 LRN [id number]) Physical Therapy Assessment Goals 5 Residential Goal (LTG) Pt will gait train at least 1400 feet in 6 minutes without AD to improve community ambulation by 09/15/2020. LTG Duration 8 weeks Four Residential Goal (LTG) Pt will present with an improved LEF score to reflect no more than 20% impairment to reflect improved functional mobility by 09/15/2020. LTG Duration 8 weeks Three Ore Tester Goal (LTG) Pt will present with improved right knee AROM from 0-120 deg to improve transfers by 2020. LTG Duration 8 weeks Two Impairment Pt requires max A to don right shoe today Residential Goal (LTG) Pt will don shoes and socks I to improve functional independence by 08/13/2020. LTG Duration 4 weeks One Ore Tester Goal (LTG) Pt will perform 12 reps sit to stand without UE support in 30 sec to improve functional strength by 09/15/2020. LTG Duration 8 weeks Assessment Summary Assessment IT band too aggressive at this time; therefore can review later if needed. Pt able to perform QS and SAQ without medial knee pain with support of lower leg during ex. Pt appears well recovered after last session and showed good tolerance to exercise. Pt appears to be quite aggressive with ex and may need to be held back a little for proper healing. Physical Therapy Plan Frequency and Duration Frequency of Treatment 2x/Week Duration of Treatment 8 weeks Plan of Care Start Date 07/14/20 Plan of Care End Date 09/15/20 Next Visit Focus/Plan Next Note Type Treatment Note Next Visit Plan Review prone hand and if needed ITB stretches. Progress with upright bike. Con't manual work. In future treatments, progress HEP including Kade stretch.
--- NOTE | 2020-08-12 12:16 | PT.OTN ---
Current Diagnoses Unilateral primary osteoarthritis, right knee (08/12/20) Physical Therapy Treatment Note PT-OP-A Visit Information Start: 07/14/20 07:30 Freq: Status: Active Protocol: Document 08/12/20 11:18 LRN (Rec: 08/12/20 12:15 LRN [id number]) Out-Patient Physical Therapy Visit Information Visit Information Visit Type Treatment Note Visit Start Time 11:18 Visit Stop Time 12:08 Total Visit Minutes 50 Visit Number 7 PT-OP-B Current Condition Start: 07/14/20 07:30 Freq: Status: Active Protocol: Document 07/14/20 09:50 MB (Rec: 07/14/20 10:07 MB [id number]) Current Condition History of Current Condition Onset Date 07/08/2020 Current Complaints Right leg swelling is stopping me from getting any more movement History of Current Condition R partial total knee surgery, medial side on 07/08/2020. Pt reports he had PT before surgery and had to stop. Pt states that in the winter 2019 , he hurt his knee when shoveling show after it was put in front of his driveway by the [employer]. Pt carries straight cane on the right side and is not open to carrying the cane in his left hand. He has a lot of pain in his right knee on the front, side and back of knee. He rates pain up to 5/10. He is icing 6x/day. He spends most of the day lying on his back with leg up on coffee table. He lives alone, he has a single story home, w/c accessibility. He has a rollator that he uses at home when he needs it. This is his first time away from home. He got a ride to PT. 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 He is concerned about how the process has been going as far as surgical visits and follow- up. Pt has not been performing many exercises since surgery d /t pain. He has a recumbent bike and has not been able to do it. Pt is taking pain medication that is making him sleep a lot and have trouble thinking like he would like to . Prior Treatments and Tests PT before surgery. Pt states that US and head was helpful. Treatment Goals Patient/Caregiver Goals To get back to be able to do what I could do before. This includes riding my motorcycle and flying. My leg has to work . PT-OP-C Subjective Start: 07/14/20 07:30 Freq: Status: Active Protocol: Document 08/12/20 11:18 LRN (Rec: 08/12/20 12:15 LRN [id number]) OP-PT Subjective Patient Comments Patient Comments States today not so much of the swelling in the R knee. PT-OP-D Balance Start: 07/14/20 07:30 Freq: Status: Active Protocol: Document 07/14/20 09:50 MB (Rec: 07/14/20 16:07 MB [id number]) OP-PT Balance Assessment Sitting Balance Static Sitting Balance Ability Good Dynamic Sitting Balance Ability Good Sitting Balance Comments UE support for dynamic sitting balance and pt cannot tolerate sit to stands today Standing Balance Static Standing Balance Ability Poor Dynamic Standing Balance Ability Poor Standing Balance Comments Pt uses SPC or reaches for mat for standing Carranza Fall Scale Copyright Permission PT-OP-G Mobility & Gait Start: 07/14/20 07:30 Freq: Status: Active Protocol: Document 07/14/20 09:50 MB (Rec: 07/14/20 16:07 MB [id number]) OP Gait Assessment Gait Gait Assistance Required: Independent Distance (Feet) 50 Assistive Devices Assistive Device Straight Cane Orthotic/Prosthetic Devices or Brace: No Gait Deviations General Gait Pattern Antalgic,Decreased Stride Length,Decreased Feet Clearance,Flexed Trunk,Lateral Trunk Lean,Step-to Gait Factors Limiting Gait Function Factors Limiting Gait Function Decreased Strength,Limited Range of Motion,Pain,Poor Balance,Poor Safety Awareness Comments Gait Comments Pt arrives using SPC in right hand and when PT suggests that he try in his left hand in order to unweight right LE, he states, I'm not going to do that. Pt does agree to try this after assessment. His gait is less antalgic with SPC in left hand. PT-OP-K Range of Motion Start: 07/14/20 07:30 Freq: Status: Active Protocol: Document 08/12/20 11:18 LRN (Rec: 08/12/20 12:15 LRN [id number]) Knee Goniometric Range of Motion Knee Right Knee ROM WFL No Patient Position Supine Flexion Active (degrees) 105 Flexion Passive (degrees) 112 Extension Active (degrees) 8 Extension Passive (degrees) 5 PT-OP-M Strength Start: 07/14/20 07:30 Freq: Status: Active Protocol: Document 07/14/20 09:50 MB (Rec: 07/14/20 16:07 MB [id number]) Hip Strength Hip Manual Muscle Testing Right Comments Pt states that he does not want PT to MMT his right LE today d/t fear of increasing pain in his right leg Left Flexion (L2) 5 Normal Extension (S1) 4 Good Comments Pt supine Knee Strength Knee Manual Muscle Testing Right Comments Pt states that he does not want PT to MMT his right LE today d/t fear of increasing pain in his right leg Left Flexion (S2) 5 Normal Extension (L3) 5 Normal Ankle/Foot Strength Ankle and Foot Manual Muscle Testing Left Dorsiflexion (L4) 5 Normal Right Comments Pt states that he does not want PT to MMT his right LE today d/t fear of increasing pain in his right leg Toe Strength Toe Manual Muscle Testing Left Great Toe Extension 5 Normal Right Great Toe Comments Pt states that he does not want PT to MMT his right LE today d/t fear of increasing pain in his right leg PT-OP-Q Treatments Start: 07/14/20 07:30 Freq: Status: Active Protocol: Document 08/12/20 11:18 LRN (Rec: 08/12/20 12:15 LRN [id number]) Cardio Equipment Recumbent Bicycle Duration (Minutes) 8 Resistance 0 Seat Position 9 Therapeutic Exercises Supine Exercises Passive knee hang Supine Exercise Name Passive knee hang into ext, f/ b QS(see above) Side right Resistance Mild overpressure added Reps/Minutes 5' Heel slides Side right Equipment Used gait belt for self assisted Reps/Minutes 7' Comments Active flex 105, Passive flex 108. Extra time taken 4 MWM to dec pn w/flex SLR Supine Exercise Name SLR Reps/Minutes 10 x 3 Quad set Supine Exercise Name QS without ankle DF Side right Equipment Used QS Reps/Minutes 3' Comments Active ext is lackibng 5 deg's R knee AROM Supine Exercise Name Passive R knee ext/flex Side right Reps/Minutes 8' Manual Therapy Treatment Soft Tissue Mobilization Anterior/Posterior R knee Mobilization Type Strumming Intensity/Depth Superficial to Moderate Body Position Supine Comments Improved flexion mobility after STM Scar Body Location R knee scar Mobilization Type Myofascial Release Intensity/Depth Superficial Body Position Supine PT-OP-R Modalities Start: 07/14/20 07:30 Freq: Status: Active Protocol: Document 08/12/20 11:18 LRN (Rec: 08/12/20 12:15 LRN [id number]) Hot Pack/Cold Pack Treatment Cold Pack Location Cryocuff Patient Position Supine Treatment Duration (minutes) 10 PT-OP-T Assessment and Plan Start: 07/14/20 07:30 Freq: Status: Active Protocol: Document 08/12/20 11:18 LRN (Rec: 08/12/20 12:15 LRN [id number]) Physical Therapy Assessment Goals 6 Prison Goal (LTG) Pt will perform progressive HEP with I to improve ROM, flexibility, gait and strength by 09/13/2020. LTG Duration 8 weeks 5 Vibration Technician Goal (LTG) Pt will gait train at least 1400 feet in 6 minutes without AD to improve community ambulation by 09/15/2020. LTG Duration 8 weeks Four Vibration Technician Goal (LTG) Pt will present with an improved LEF score to reflect no more than 20% impairment to reflect improved functional mobility by 09/15/2020. LTG Duration 8 weeks Three Vibration Technician Goal (LTG) Pt will present with improved right knee AROM from 0-120 deg to improve transfers by 2020. LTG Duration 8 weeks Two Impairment Pt requires max A to don right shoe today Prison Goal (LTG) Pt will don shoes and socks I to improve functional independence by 08/13/2020. LTG Duration 4 weeks One Prison Goal (LTG) Pt will perform 12 reps sit to stand without UE support in 30 sec to improve functional strength by 09/15/2020. LTG Duration 8 weeks Progress Towards Goals Progress Comments R knee AROM improved from initial 15-35 deg's to 8-105 deg's. (PROM at end of treatment was 5-112 deg's) Assessment Summary Assessment Pt not appropriate for IT Band stretch; therefore DC'd stretch from pt's HEP. R knee ROM is improving. Pt is anxious to actively exer and needs reminder to focus on improving ROM. Physical Therapy Plan Frequency and Duration Frequency of Treatment 2x/Week Duration of Treatment 8 weeks Plan of Care Start Date 07/14/20 Plan of Care End Date 09/15/20 Next Visit Focus/Plan Next Note Type Treatment Note Next Visit Plan Progress with bike for R knee ROM. Con't manual work. In future treatments, progress HEP including Kade gage.
--- NOTE | 2020-08-14 11:17 | PT.OTN ---
Current Diagnoses Unilateral primary osteoarthritis, right knee (08/14/20) Physical Therapy Treatment Note PT-OP-A Visit Information Start: 07/14/20 07:30 Freq: Status: Active Protocol: Document 08/14/20 10:30 MB (Rec: 08/14/20 10:40 MB [id number]) Out-Patient Physical Therapy Visit Information Visit Information Visit Type Treatment Note Visit Start Time 10:30 Visit Stop Time 11:15 Total Visit Minutes 45 Visit Number 8 PT-OP-B Current Condition Start: 07/14/20 07:30 Freq: Status: Active Protocol: Document 07/14/20 09:50 MB (Rec: 07/14/20 10:07 MB [id number]) Current Condition History of Current Condition Onset Date 07/08/2020 Current Complaints Right leg swelling is stopping me from getting any more movement History of Current Condition R partial total knee surgery, medial side on 07/08/2020. Pt reports he had PT before surgery and had to stop. Pt states that in the winter 2019 , he hurt his knee when shoveling show after it was put in front of his driveway by the [employer]. Pt carries straight cane on the right side and is not open to carrying the cane in his left hand. He has a lot of pain in his right knee on the front, side and back of knee. He rates pain up to 5/10. He is icing 6x/day. He spends most of the day lying on his back with leg up on coffee table. He lives alone, he has a single story home, w/c accessibility. He has a rollator that he uses at home when he needs it. This is his first time away from home. He got a ride to PT. 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 He is concerned about how the process has been going as far as surgical visits and follow- up. Pt has not been performing many exercises since surgery d /t pain. He has a recumbent bike and has not been able to do it. Pt is taking pain medication that is making him sleep a lot and have trouble thinking like he would like to . Prior Treatments and Tests PT before surgery. Pt states that US and head was helpful. Treatment Goals Patient/Caregiver Goals To get back to be able to do what I could do before. This includes riding my motorcycle and flying. My leg has to work . PT-OP-C Subjective Start: 07/14/20 07:30 Freq: Status: Active Protocol: Document 08/14/20 10:30 MB (Rec: 08/14/20 10:40 MB [id number]) OP-PT Subjective Patient Comments Patient Comments I haven't been going all around yet. Pt states that he has not yet done a full revolution on the recumbent bike. PT-OP-D Balance Start: 07/14/20 07:30 Freq: Status: Active Protocol: Document 07/14/20 09:50 MB (Rec: 07/14/20 16:07 MB [id number]) OP-PT Balance Assessment Sitting Balance Static Sitting Balance Ability Good Dynamic Sitting Balance Ability Good Sitting Balance Comments UE support for dynamic sitting balance and pt cannot tolerate sit to stands today Standing Balance Static Standing Balance Ability Poor Dynamic Standing Balance Ability Poor Standing Balance Comments Pt uses SPC or reaches for mat for standing Carranza Fall Scale Copyright Permission PT-OP-G Mobility & Gait Start: 07/14/20 07:30 Freq: Status: Active Protocol: Document 07/14/20 09:50 MB (Rec: 07/14/20 16:07 MB [id number]) OP Gait Assessment Gait Gait Assistance Required: Independent Distance (Feet) 50 Assistive Devices Assistive Device Straight Cane Orthotic/Prosthetic Devices or Brace: No Gait Deviations General Gait Pattern Antalgic,Decreased Stride Length,Decreased Feet Clearance,Flexed Trunk,Lateral Trunk Lean,Step-to Gait Factors Limiting Gait Function Factors Limiting Gait Function Decreased Strength,Limited Range of Motion,Pain,Poor Balance,Poor Safety Awareness Comments Gait Comments Pt arrives using SPC in right hand and when PT suggests that he try in his left hand in order to unweight right LE, he states, I'm not going to do that. Pt does agree to try this after assessment. His gait is less antalgic with SPC in left hand. PT-OP-K Range of Motion Start: 07/14/20 07:30 Freq: Status: Active Protocol: Document 08/12/20 11:18 LRN (Rec: 08/12/20 12:15 LRN [id number]) Knee Goniometric Range of Motion Knee Right Knee ROM WFL No Patient Position Supine Flexion Active (degrees) 105 Flexion Passive (degrees) 112 Extension Active (degrees) 8 Extension Passive (degrees) 5 PT-OP-M Strength Start: 07/14/20 07:30 Freq: Status: Active Protocol: Document 07/14/20 09:50 MB (Rec: 07/14/20 16:07 MB [id number]) Hip Strength Hip Manual Muscle Testing Right Comments Pt states that he does not want PT to MMT his right LE today d/t fear of increasing pain in his right leg Left Flexion (L2) 5 Normal Extension (S1) 4 Good Comments Pt supine Knee Strength Knee Manual Muscle Testing Right Comments Pt states that he does not want PT to MMT his right LE today d/t fear of increasing pain in his right leg Left Flexion (S2) 5 Normal Extension (L3) 5 Normal Ankle/Foot Strength Ankle and Foot Manual Muscle Testing Left Dorsiflexion (L4) 5 Normal Right Comments Pt states that he does not want PT to MMT his right LE today d/t fear of increasing pain in his right leg Toe Strength Toe Manual Muscle Testing Left Great Toe Extension 5 Normal Right Great Toe Comments Pt states that he does not want PT to MMT his right LE today d/t fear of increasing pain in his right leg PT-OP-Q Treatments Start: 07/14/20 07:30 Freq: Status: Active Protocol: Document 08/14/20 10:30 MB (Rec: 08/14/20 10:52 MB [id number]) Cardio Equipment Recumbent Bicycle Duration (Minutes) 10 Resistance 3 Seat Position 10 Therapeutic Exercises Supine Exercises Passive knee hang Comments D/c d/t pt does not like, is uncomfortable Heel slides Side right Comments 20 reps Hamstring /IT band stretch Comments D/cd d/t too strong ankle pumps Side bilateral Comments Performs throughout treatment AP Comments D/cd, repeated exercise SLR Side right Comments Slow down, 5 reps Glut set/Hamstring set Comments Not performing, d/c Quad set Side right Comments 10 reps Sitting Exercises Rolling pin Side right Comments Ed pt in see saw Manual Therapy Treatment Other Other Manual Treatments Patellar lift right knee with pt performing active HS with full leg extension and flexing as much as possible. MWM right vastus lateralis and rectus femoris with PT providing TrP STM and pt performing active heel slide, posterior right knee lavage PT-OP-R Modalities Start: 07/14/20 07:30 Freq: Status: Active Protocol: Document 08/12/20 11:18 LRN (Rec: 08/12/20 12:15 LRN [id number]) Hot Pack/Cold Pack Treatment Cold Pack Location Cryocuff Patient Position Supine Treatment Duration (minutes) 10 PT-OP-T Assessment and Plan Start: 07/14/20 07:30 Freq: Status: Active Protocol: Document 08/14/20 10:30 MB (Rec: 08/14/20 10:40 MB [id number]) Physical Therapy Assessment Goals 6 [facility] Goal (LTG) Pt will perform progressive HEP with I to improve ROM, flexibility, gait and strength by 09/13/2020. LTG Duration 8 weeks 5 [facility] Goal (LTG) Pt will gait train at least 1400 feet in 6 minutes without AD to improve community ambulation by 09/15/2020. LTG Duration 8 weeks Four [facility] Goal (LTG) Pt will present with an improved LEF score to reflect no more than 20% impairment to reflect improved functional mobility by 09/15/2020. LTG Duration 8 weeks Three [facility] Goal (LTG) Pt will present with improved right knee AROM from 0-120 deg to improve transfers by 2020. LTG Duration 8 weeks Two LTG Duration 08/14/2020 [facility] Goal (LTG) Pt will perform 12 reps sit to stand without UE support in 30 sec to improve functional strength by 09/15/2020. LTG Duration 8 weeks Assessment Summary Assessment Revised exercises today and taught see saw motion for rolling pin and slowing down for SLR. Manual work today for ongoing fascial release, progress HEP as pt tolerates. Physical Therapy Plan Frequency and Duration Frequency of Treatment 2x/Week Duration of Treatment 8 weeks Plan of Care Start Date 07/14/20 Plan of Care End Date 09/15/20 Next Visit Focus/Plan Next Note Type Treatment Note Next Visit Plan Progress with bike for R knee ROM. Con't manual work. In future treatments, progress HEP including Kade gage.
--- NOTE | 2020-08-18 11:32 | PT.OTN ---
Current Diagnoses Unilateral primary osteoarthritis, right knee (08/18/20) Physical Therapy Treatment Note PT-OP-A Visit Information Start: 07/14/20 07:30 Freq: Status: Active Protocol: Document 08/18/20 09:02 MB (Rec: 08/18/20 09:46 MB [id number]) Out-Patient Physical Therapy Visit Information Visit Information Visit Type Progress Note Visit Start Time 09:02 Visit Stop Time 09:45 Total Visit Minutes 43 Visit Number 9 PT-OP-B Current Condition Start: 07/14/20 07:30 Freq: Status: Active Protocol: Document 07/14/20 09:50 MB (Rec: 07/14/20 10:07 MB [id number]) Current Condition History of Current Condition Onset Date 07/08/2020 Current Complaints Right leg swelling is stopping me from getting any more movement History of Current Condition R partial total knee surgery, medial side on 07/08/2020. Pt reports he had PT before surgery and had to stop. Pt states that in the winter 2019 , he hurt his knee when shoveling show after it was put in front of his driveway by the [employer]. Pt carries straight cane on the right side and is not open to carrying the cane in his left hand. He has a lot of pain in his right knee on the front, side and back of knee. He rates pain up to 5/10. He is icing 6x/day. He spends most of the day lying on his back with leg up on coffee table. He lives alone, he has a single story home, w/c accessibility. He has a rollator that he uses at home when he needs it. This is his first time away from home. He got a ride to PT. 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 He is concerned about how the process has been going as far as surgical visits and follow- up. Pt has not been performing many exercises since surgery d /t pain. He has a recumbent bike and has not been able to do it. Pt is taking pain medication that is making him sleep a lot and have trouble thinking like he would like to . Prior Treatments and Tests PT before surgery. Pt states that US and head was helpful. Treatment Goals Patient/Caregiver Goals To get back to be able to do what I could do before. This includes riding my motorcycle and flying. My leg has to work . PT-OP-C Subjective Start: 07/14/20 07:30 Freq: Status: Active Protocol: Document 08/18/20 09:02 MB (Rec: 08/18/20 11:22 MB [id number]) OP-PT Subjective Patient Comments Patient Comments It's doing better after you worked on my knee. Patient Reported Progress Improving PT-OP-D Balance Start: 07/14/20 07:30 Freq: Status: Active Protocol: Document 07/14/20 09:50 MB (Rec: 07/14/20 16:07 MB [id number]) OP-PT Balance Assessment Sitting Balance Static Sitting Balance Ability Good Dynamic Sitting Balance Ability Good Sitting Balance Comments UE support for dynamic sitting balance and pt cannot tolerate sit to stands today Standing Balance Static Standing Balance Ability Poor Dynamic Standing Balance Ability Poor Standing Balance Comments Pt uses SPC or reaches for mat for standing Carranza Fall Scale Copyright Permission PT-OP-G Mobility & Gait Start: 07/14/20 07:30 Freq: Status: Active Protocol: Document 07/14/20 09:50 MB (Rec: 07/14/20 16:07 MB [id number]) OP Gait Assessment Gait Gait Assistance Required: Independent Distance (Feet) 50 Assistive Devices Assistive Device Straight Cane Orthotic/Prosthetic Devices or Brace: No Gait Deviations General Gait Pattern Antalgic,Decreased Stride Length,Decreased Feet Clearance,Flexed Trunk,Lateral Trunk Lean,Step-to Gait Factors Limiting Gait Function Factors Limiting Gait Function Decreased Strength,Limited Range of Motion,Pain,Poor Balance,Poor Safety Awareness Comments Gait Comments Pt arrives using SPC in right hand and when PT suggests that he try in his left hand in order to unweight right LE, he states, I'm not going to do that. Pt does agree to try this after assessment. His gait is less antalgic with SPC in left hand. PT-OP-K Range of Motion Start: 07/14/20 07:30 Freq: Status: Active Protocol: Document 08/12/20 11:18 LRN (Rec: 08/12/20 12:15 LRN [id number]) Knee Goniometric Range of Motion Knee Right Knee ROM WFL No Patient Position Supine Flexion Active (degrees) 105 Flexion Passive (degrees) 112 Extension Active (degrees) 8 Extension Passive (degrees) 5 PT-OP-M Strength Start: 07/14/20 07:30 Freq: Status: Active Protocol: Document 07/14/20 09:50 MB (Rec: 07/14/20 16:07 MB [id number]) Hip Strength Hip Manual Muscle Testing Right Comments Pt states that he does not want PT to MMT his right LE today d/t fear of increasing pain in his right leg Left Flexion (L2) 5 Normal Extension (S1) 4 Good Comments Pt supine Knee Strength Knee Manual Muscle Testing Right Comments Pt states that he does not want PT to MMT his right LE today d/t fear of increasing pain in his right leg Left Flexion (S2) 5 Normal Extension (L3) 5 Normal Ankle/Foot Strength Ankle and Foot Manual Muscle Testing Left Dorsiflexion (L4) 5 Normal Right Comments Pt states that he does not want PT to MMT his right LE today d/t fear of increasing pain in his right leg Toe Strength Toe Manual Muscle Testing Left Great Toe Extension 5 Normal Right Great Toe Comments Pt states that he does not want PT to MMT his right LE today d/t fear of increasing pain in his right leg PT-OP-Q Treatments Start: 07/14/20 07:30 Freq: Status: Active Protocol: Document 08/18/20 09:02 MB (Rec: 08/18/20 10:27 MB [id number]) Therapeutic Exercises Supine Exercises Heel slides Side right Comments Performed in neutral and sliding right heel up left lr in supine/sit Sitting Exercises Sit to stands Comments 7 reps without UE support in 30 sec today Gait Training Gait Activity 6MWT Comments Pt gait trains 1463 feet today in 6 minutes. He does favor his right LE and has decreased right knee flexion and heel strike compared to the left but his gait is not antalgic particularly Other gait during treatment with similar gait pattern PT-OP-R Modalities Start: 07/14/20 07:30 Freq: Status: Active Protocol: Document 08/12/20 11:18 LRN (Rec: 08/12/20 12:15 LRN [id number]) Hot Pack/Cold Pack Treatment Cold Pack Location Cryocuff Patient Position Supine Treatment Duration (minutes) 10 PT-OP-T Assessment and Plan Start: 07/14/20 07:30 Freq: Status: Active Protocol: Document 08/18/20 09:02 MB (Rec: 08/18/20 09:46 MB [id number]) Physical Therapy Assessment Rehab Potential Rehabilitation Potential Good Evaluation Complexity Number of Personal Factors/Comorbidities 1-2 Number of Body Systems Impaired 1-2 Clinical Presentation at Evaluation Stable Impairments Impairments Activity Tolerance,Balance, Edema,Functional Mobility,Gait ,Integument,Pain,Posture,ROM, Sensation,Soft Tissue Mobility ,Strength Goals [facility] Goal (LTG) Pt will be able to slide right heel up to above left knee in sitting to allow better ease of donning socks and to get on motorcycle by 10/19/2020. 08/18/2020: In hook lying, active left hip ER is 48 deg and active right hip ER is 46 deg LTG Duration 8 weeks 6 [employer] Goal (LTG) Pt will perform progressive HEP with I to improve ROM, flexibility, gait and strength by 10/19/2020. 08/18/2020: Pt is performing initial HEP exercises LTG Duration 8 weeks 5 [employer] Goal (LTG) Pt will gait train at least 1600 feet in 6 minutes without AD to improve community ambulation by 10/19/2020. 08/18/2020: Pt gait trains 1463 feet in 6 minutes LTG Duration 8 weeks Four [employer] Goal (LTG) Pt will present with an improved LEF score to reflect no more than 20% impairment to reflect improved functional mobility by 10/19/2020. 08/18/2020: LEF score reflects 33.75% impairment LTG Duration 8 weeks Three [employer] Goal (LTG) Pt will present with improved right knee AROM from 0-120 deg to improve transfers by 2020. 08/18/2020: 3-116 deg right knee AROM in supine today LTG Duration 8 weeks [facility] Goal (LTG) Pt will perform 12 reps sit to stand without UE support in 30 sec to improve functional strength by 10/19/2020. 08/18/2020: Pt performs 7 reps sit to stand without UE support and pt reports mild tightness in the front of both knees LTG Duration 8 weeks Assessment Summary Assessment Pt has progressed towards all goals since starting PT. These include: LEF score, sit to stands without UE support, right knee AROM, gait performance and distance, performance of donning and doffing shoes and socks and HEP. Pt has a small area that appears like adipose tissue lateral right knee that pt feels is swelling from Watkins's cyst. Will con't to monitor. Overall, his right LE edema and coloring and scar healing is much better. Pt will benefit from ongoing skilled PT to improve range, strength, function and gait. He would like to get back to motorcycling and PT recommends that he follow-up with surgeon about this. Physical Therapy Plan Frequency and Duration Frequency of Treatment 2x/Week Duration of Treatment 8 weeks Plan of Care Start Date 08/18/20 Plan of Care End Date 10/20/20 Therapeutic Interventions Therapeutic Interventions Balance Training,Canalithic Repositioning,Gait Training, Home Exercise Program,Joint Mobilizations,Manual Therapy, Neuromuscular Re-education, Patient/Caregiver Education, Self-Care/Home Management, Sensory Integration,Soft Tissue Mobilization,Taping, Therapeutic Activities, Therapeutic Exercises Next Visit Focus/Plan Next Note Type Treatment Note Next Visit Plan Con't manual work. In future treatments, progress HEP including Kade gage.
--- NOTE | 2020-08-18 11:33 | PT.OPPOC ---
Physical, Occupational & Speech Therapy At [facility] Current Diagnoses Unilateral primary osteoarthritis, right knee (08/18/20) Visit Care Team Role Provider Type Ryan Bryan MD Family Provider Physician Primary Care Provider Specialty: Family Practice Address: [address] [place] [address], [id number] Email: [email or web address] Stevie Leigh MD Attending Provider Physician Referring Provider Specialty: Orthopedic Surgery Address: [address] [place] [address], [id number] Email: [email or web address] Plan Of Care PT-OP-T Assessment and Plan Start: 07/14/20 07:30 Freq: Status: Active Protocol: Document 08/18/20 09:02 MB (Rec: 08/18/20 09:46 MB [id number]) Physical Therapy Assessment Rehab Potential Rehabilitation Potential Good Evaluation Complexity Number of Personal Factors/Comorbidities 1-2 Number of Body Systems Impaired 1-2 Clinical Presentation at Evaluation Stable Impairments Impairments Activity Tolerance,Balance, Edema,Functional Mobility,Gait ,Integument,Pain,Posture,ROM, Sensation,Soft Tissue Mobility ,Strength Goals [employer] Goal (LTG) Pt will be able to slide right heel up to above left knee in sitting to allow better ease of donning socks and to get on motorcycle by 10/19/2020. 08/18/2020: In hook lying, active left hip ER is 48 deg and active right hip ER is 46 deg LTG Duration 8 weeks 6 [facility] Goal (LTG) Pt will perform progressive HEP with I to improve ROM, flexibility, gait and strength by 10/19/2020. 08/18/2020: Pt is performing initial HEP exercises LTG Duration 8 weeks 5 [facility] Goal (LTG) Pt will gait train at least 1600 feet in 6 minutes without AD to improve community ambulation by 10/19/2020. 08/18/2020: Pt gait trains 1463 feet in 6 minutes LTG Duration 8 weeks Four [employer] Goal (LTG) Pt will present with an improved LEF score to reflect no more than 20% impairment to reflect improved functional mobility by 10/19/2020. 08/18/2020: LEF score reflects 33.75% impairment LTG Duration 8 weeks Three [facility] Goal (LTG) Pt will present with improved right knee AROM from 0-120 deg to improve transfers by 2020. 08/18/2020: 3-116 deg right knee AROM in supine today LTG Duration 8 weeks One [facility] Goal (LTG) Pt will perform 12 reps sit to stand without UE support in 30 sec to improve functional strength by 10/19/2020. 08/18/2020: Pt performs 7 reps sit to stand without UE support and pt reports mild tightness in the front of both knees LTG Duration 8 weeks Assessment Summary Assessment Pt has progressed towards all goals since starting PT. These include: LEF score, sit to stands without UE support, right knee AROM, gait performance and distance, performance of donning and doffing shoes and socks and HEP. Pt has a small area that appears like adipose tissue lateral right knee that pt feels is swelling from Watkins's cyst. Will con't to monitor. Overall, his right LE edema and coloring and scar healing is much better. Pt will benefit from ongoing skilled PT to improve range, strength, function and gait. He would like to get back to motorcycling and PT recommends that he follow-up with surgeon about this. Physical Therapy Plan Frequency and Duration Frequency of Treatment 2x/Week Duration of Treatment 8 weeks Plan of Care Start Date 08/18/20 Plan of Care End Date 10/20/20 Therapeutic Interventions Therapeutic Interventions Balance Training,Canalithic Repositioning,Gait Training, Home Exercise Program,Joint Mobilizations,Manual Therapy, Neuromuscular Re-education, Patient/Caregiver Education, Self-Care/Home Management, Sensory Integration,Soft Tissue Mobilization,Taping, Therapeutic Activities, Therapeutic Exercises Next Visit Focus/Plan Next Note Type Treatment Note Next Visit Plan Con't manual work. In future treatments, progress HEP including Kade gage. Plan of Care Dates Plan of Care Start Date 08/18/20 Plan of Care End Date 10/20/20 Electronically Signed by: Linnette Arthur, PT 08/18/20 1545 Please Sign and Return: I have reviewed this Plan of Care and certify that the skilled therapy services above are required to meet the patient?s needs. Physician Signature Date Printed Name and Credentials Clinical Instructor Signature Printed Name and Credentials
--- NOTE | 2020-08-20 10:31 | PT.OTN ---
Current Diagnoses Unilateral primary osteoarthritis, right knee (08/20/20) Physical Therapy Treatment Note PT-OP-A Visit Information Start: 07/14/20 07:30 Freq: Status: Active Protocol: Document 08/20/20 09:46 MB (Rec: 08/20/20 10:29 MB [id number]) Out-Patient Physical Therapy Visit Information Visit Information Visit Type Treatment Note Visit Start Time 09:46 Visit Stop Time 10:30 Total Visit Minutes 44 Visit Number 10 PT-OP-B Current Condition Start: 07/14/20 07:30 Freq: Status: Active Protocol: Document 07/14/20 09:50 MB (Rec: 07/14/20 10:07 MB [id number]) Current Condition History of Current Condition Onset Date 07/08/2020 Current Complaints Right leg swelling is stopping me from getting any more movement History of Current Condition R partial total knee surgery, medial side on 07/08/2020. Pt reports he had PT before surgery and had to stop. Pt states that in the winter 2019 , he hurt his knee when shoveling show after it was put in front of his driveway by the [employer]. Pt carries straight cane on the right side and is not open to carrying the cane in his left hand. He has a lot of pain in his right knee on the front, side and back of knee. He rates pain up to 5/10. He is icing 6x/day. He spends most of the day lying on his back with leg up on coffee table. He lives alone, he has a single story home, w/c accessibility. He has a rollator that he uses at home when he needs it. This is his first time away from home. He got a ride to PT. 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 He is concerned about how the process has been going as far as surgical visits and follow- up. Pt has not been performing many exercises since surgery d /t pain. He has a recumbent bike and has not been able to do it. Pt is taking pain medication that is making him sleep a lot and have trouble thinking like he would like to . Prior Treatments and Tests PT before surgery. Pt states that US and head was helpful. Treatment Goals Patient/Caregiver Goals To get back to be able to do what I could do before. This includes riding my motorcycle and flying. My leg has to work . PT-OP-C Subjective Start: 07/14/20 07:30 Freq: Status: Active Protocol: Document 08/20/20 09:46 MB (Rec: 08/20/20 10:29 MB [id number]) OP-PT Subjective Patient Comments Patient Comments I saw Dr. Leigh and he's happy with me. He was a little concerned about the pain on the outside of both of my legs. Pt brought it up with his chiropractor and he got worked on his low back and pelvis. PT-OP-D Balance Start: 07/14/20 07:30 Freq: Status: Active Protocol: Document 07/14/20 09:50 MB (Rec: 07/14/20 16:07 MB [id number]) OP-PT Balance Assessment Sitting Balance Static Sitting Balance Ability Good Dynamic Sitting Balance Ability Good Sitting Balance Comments UE support for dynamic sitting balance and pt cannot tolerate sit to stands today Standing Balance Static Standing Balance Ability Poor Dynamic Standing Balance Ability Poor Standing Balance Comments Pt uses SPC or reaches for mat for standing Carranza Fall Scale Copyright Permission PT-OP-G Mobility & Gait Start: 07/14/20 07:30 Freq: Status: Active Protocol: Document 07/14/20 09:50 MB (Rec: 07/14/20 16:07 MB [id number]) OP Gait Assessment Gait Gait Assistance Required: Independent Distance (Feet) 50 Assistive Devices Assistive Device Straight Cane Orthotic/Prosthetic Devices or Brace: No Gait Deviations General Gait Pattern Antalgic,Decreased Stride Length,Decreased Feet Clearance,Flexed Trunk,Lateral Trunk Lean,Step-to Gait Factors Limiting Gait Function Factors Limiting Gait Function Decreased Strength,Limited Range of Motion,Pain,Poor Balance,Poor Safety Awareness Comments Gait Comments Pt arrives using SPC in right hand and when PT suggests that he try in his left hand in order to unweight right LE, he states, I'm not going to do that. Pt does agree to try this after assessment. His gait is less antalgic with SPC in left hand. PT-OP-K Range of Motion Start: 07/14/20 07:30 Freq: Status: Active Protocol: Document 08/12/20 11:18 LRN (Rec: 08/12/20 12:15 LRN [id number]) Knee Goniometric Range of Motion Knee Right Knee ROM WFL No Patient Position Supine Flexion Active (degrees) 105 Flexion Passive (degrees) 112 Extension Active (degrees) 8 Extension Passive (degrees) 5 PT-OP-M Strength Start: 07/14/20 07:30 Freq: Status: Active Protocol: Document 07/14/20 09:50 MB (Rec: 07/14/20 16:07 MB [id number]) Hip Strength Hip Manual Muscle Testing Right Comments Pt states that he does not want PT to MMT his right LE today d/t fear of increasing pain in his right leg Left Flexion (L2) 5 Normal Extension (S1) 4 Good Comments Pt supine Knee Strength Knee Manual Muscle Testing Right Comments Pt states that he does not want PT to MMT his right LE today d/t fear of increasing pain in his right leg Left Flexion (S2) 5 Normal Extension (L3) 5 Normal Ankle/Foot Strength Ankle and Foot Manual Muscle Testing Left Dorsiflexion (L4) 5 Normal Right Comments Pt states that he does not want PT to MMT his right LE today d/t fear of increasing pain in his right leg Toe Strength Toe Manual Muscle Testing Left Great Toe Extension 5 Normal Right Great Toe Comments Pt states that he does not want PT to MMT his right LE today d/t fear of increasing pain in his right leg PT-OP-Q Treatments Start: 07/14/20 07:30 Freq: Status: Active Protocol: Document 08/20/20 09:46 MB (Rec: 08/20/20 10:29 MB [id number]) Cardio Equipment Bicycle (Upright) Duration (Minutes) 10 Resistance 10 Seat Position 8 Therapeutic Exercises Supine Exercises Heel slides Side bilateral Comments Pt performs in neutral and heel slide up lr for hip ER x20 reps Manual Therapy Treatment Other Other Manual Treatments R patellar lift, B Vastus lateralis STM, MWM with PT performing TrP pressure and pt performing active HS, gentle positional release B hip flexors. PT worked on left leg some today in order to help with gait and overall right LE issuesu PT-OP-R Modalities Start: 07/14/20 07:30 Freq: Status: Active Protocol: Document 08/12/20 11:18 LRN (Rec: 08/12/20 12:15 LRN [id number]) Hot Pack/Cold Pack Treatment Cold Pack Location Cryocuff Patient Position Supine Treatment Duration (minutes) 10 PT-OP-T Assessment and Plan Start: 07/14/20 07:30 Freq: Status: Active Protocol: Document 08/20/20 09:46 MB (Rec: 08/20/20 10:29 MB [id number]) Physical Therapy Assessment Rehab Potential Rehabilitation Potential Good Evaluation Complexity Number of Personal Factors/Comorbidities 1-2 Number of Body Systems Impaired 1-2 Clinical Presentation at Evaluation Stable Impairments Impairments Activity Tolerance,Balance, Edema,Functional Mobility,Gait ,Integument,Pain,Posture,ROM, Sensation,Soft Tissue Mobility ,Strength Goals Six Intermediate Goal (LTG) Pt will be able to slide right heel up to above left knee in sitting to allow better ease of donning socks and to get on motorcycle by 10/19/2020. 08/18/2020: In hook lying, active left hip ER is 48 deg and active right hip ER is 46 deg LTG Duration 8 weeks 6 Intermediate Goal (LTG) Pt will perform progressive HEP with I to improve ROM, flexibility, gait and strength by 10/19/2020. 08/18/2020: Pt is performing initial HEP exercises LTG Duration 8 weeks 5 Intermediate Goal (LTG) Pt will gait train at least 1600 feet in 6 minutes without AD to improve community ambulation by 10/19/2020. 08/18/2020: Pt gait trains 1463 feet in 6 minutes LTG Duration 8 weeks Four Chainstitch Tunnel Elastic Operator Goal (LTG) Pt will present with an improved LEF score to reflect no more than 20% impairment to reflect improved functional mobility by 10/19/2020. 08/18/2020: LEF score reflects 33.75% impairment LTG Duration 8 weeks Three [employer]ch Tunnel Elastic Operator Goal (LTG) Pt will present with improved right knee AROM from 0-120 deg to improve transfers by 2020. 08/18/2020: 3-116 deg right knee AROM in supine today LTG Duration 8 weeks One Chainstitch Tunnel Elastic Operator Goal (LTG) Pt will perform 12 reps sit to stand without UE support in 30 sec to improve functional strength by 10/19/2020. 08/18/2020: Pt performs 7 reps sit to stand without UE support and pt reports mild tightness in the front of both knees LTG Duration 8 weeks Assessment Summary Assessment Pt con't with better HS movement up lr today, skin is looking good. Manual work today addressed hip flexors, quads and vastus lateralis and pt has good tolerance. Con't to monitor lateral upper leg symptoms. Physical Therapy Plan Frequency and Duration Frequency of Treatment 2x/Week Duration of Treatment 8 weeks Plan of Care Start Date 08/18/20 Plan of Care End Date 10/20/20 Therapeutic Interventions Therapeutic Interventions Balance Training,Canalithic Repositioning,Gait Training, Home Exercise Program,Joint Mobilizations,Manual Therapy, Neuromuscular Re-education, Patient/Caregiver Education, Self-Care/Home Management, Sensory Integration,Soft Tissue Mobilization,Taping, Therapeutic Activities, Therapeutic Exercises Next Visit Focus/Plan Next Note Type Treatment Note Next Visit Plan Consider Counterstrain. Con't manual work. In future treatments, progress HEP including Kade gage.
--- NOTE | 2020-08-26 13:01 | PT.OTN ---
Current Diagnoses Unilateral primary osteoarthritis, right knee (08/26/20) Physical Therapy Treatment Note PT-OP-A Visit Information Start: 07/14/20 07:30 Freq: Status: Active Protocol: Document 08/26/20 12:15 MB (Rec: 08/26/20 13:00 MB [id number]) Out-Patient Physical Therapy Visit Information Visit Information Visit Type Treatment Note Visit Start Time 12:15 Visit Stop Time 12:57 Total Visit Minutes 42 Visit Number 11 PT-OP-B Current Condition Start: 07/14/20 07:30 Freq: Status: Active Protocol: Document 07/14/20 09:50 MB (Rec: 07/14/20 10:07 MB [id number]) Current Condition History of Current Condition Onset Date 07/08/2020 Current Complaints Right leg swelling is stopping me from getting any more movement History of Current Condition R partial total knee surgery, medial side on 07/08/2020. Pt reports he had PT before surgery and had to stop. Pt states that in the winter 2019 , he hurt his knee when shoveling show after it was put in front of his driveway by the [employer]. Pt carries straight cane on the right side and is not open to carrying the cane in his left hand. He has a lot of pain in his right knee on the front, side and back of knee. He rates pain up to 5/10. He is icing 6x/day. He spends most of the day lying on his back with leg up on coffee table. He lives alone, he has a single story home, w/c accessibility. He has a rollator that he uses at home when he needs it. This is his first time away from home. He got a ride to PT. 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 He is concerned about how the process has been going as far as surgical visits and follow- up. Pt has not been performing many exercises since surgery d /t pain. He has a recumbent bike and has not been able to do it. Pt is taking pain medication that is making him sleep a lot and have trouble thinking like he would like to . Prior Treatments and Tests PT before surgery. Pt states that US and head was helpful. Treatment Goals Patient/Caregiver Goals To get back to be able to do what I could do before. This includes riding my motorcycle and flying. My leg has to work . PT-OP-C Subjective Start: 07/14/20 07:30 Freq: Status: Active Protocol: Document 08/26/20 12:15 MB (Rec: 08/26/20 13:00 MB [id number]) OP-PT Subjective Patient Comments Patient Comments It helped a little and then it's like it came back with a vengence with regard to B lateral proximal leg pain. PT-OP-D Balance Start: 07/14/20 07:30 Freq: Status: Active Protocol: Document 07/14/20 09:50 MB (Rec: 07/14/20 16:07 MB [id number]) OP-PT Balance Assessment Sitting Balance Static Sitting Balance Ability Good Dynamic Sitting Balance Ability Good Sitting Balance Comments UE support for dynamic sitting balance and pt cannot tolerate sit to stands today Standing Balance Static Standing Balance Ability Poor Dynamic Standing Balance Ability Poor Standing Balance Comments Pt uses SPC or reaches for mat for standing Carranza Fall Scale Copyright Permission PT-OP-G Mobility & Gait Start: 07/14/20 07:30 Freq: Status: Active Protocol: Document 07/14/20 09:50 MB (Rec: 07/14/20 16:07 MB [id number]) OP Gait Assessment Gait Gait Assistance Required: Independent Distance (Feet) 50 Assistive Devices Assistive Device Straight Cane Orthotic/Prosthetic Devices or Brace: No Gait Deviations General Gait Pattern Antalgic,Decreased Stride Length,Decreased Feet Clearance,Flexed Trunk,Lateral Trunk Lean,Step-to Gait Factors Limiting Gait Function Factors Limiting Gait Function Decreased Strength,Limited Range of Motion,Pain,Poor Balance,Poor Safety Awareness Comments Gait Comments Pt arrives using SPC in right hand and when PT suggests that he try in his left hand in order to unweight right LE, he states, I'm not going to do that. Pt does agree to try this after assessment. His gait is less antalgic with SPC in left hand. PT-OP-K Range of Motion Start: 07/14/20 07:30 Freq: Status: Active Protocol: Document 08/12/20 11:18 LRN (Rec: 08/12/20 12:15 LRN [id number]) Knee Goniometric Range of Motion Knee Right Knee ROM WFL No Patient Position Supine Flexion Active (degrees) 105 Flexion Passive (degrees) 112 Extension Active (degrees) 8 Extension Passive (degrees) 5 PT-OP-M Strength Start: 07/14/20 07:30 Freq: Status: Active Protocol: Document 07/14/20 09:50 MB (Rec: 07/14/20 16:07 MB [id number]) Hip Strength Hip Manual Muscle Testing Right Comments Pt states that he does not want PT to MMT his right LE today d/t fear of increasing pain in his right leg Left Flexion (L2) 5 Normal Extension (S1) 4 Good Comments Pt supine Knee Strength Knee Manual Muscle Testing Right Comments Pt states that he does not want PT to MMT his right LE today d/t fear of increasing pain in his right leg Left Flexion (S2) 5 Normal Extension (L3) 5 Normal Ankle/Foot Strength Ankle and Foot Manual Muscle Testing Left Dorsiflexion (L4) 5 Normal Right Comments Pt states that he does not want PT to MMT his right LE today d/t fear of increasing pain in his right leg Toe Strength Toe Manual Muscle Testing Left Great Toe Extension 5 Normal Right Great Toe Comments Pt states that he does not want PT to MMT his right LE today d/t fear of increasing pain in his right leg PT-OP-Q Treatments Start: 07/14/20 07:30 Freq: Status: Active Protocol: Document 08/26/20 12:15 MB (Rec: 08/26/20 13:00 MB [id number]) Manual Therapy Treatment Other Other Manual Treatments Pt agrees to Counterstrain to assess and treat fascial tension and pt presents with tension in the following fascial systems: lymphatic venous spinal extension, disks and LF. PT treats stacks in the following systems: cervical to lumbar spinal vein extension. Pt scans left rib periosteal, veins and pt reports old left rib fractures . PT treated LV d/t largest tightness today and con't further system treatments in future. Pt presents with right femur flexion/tightness and re-check long bones in future treatment. MWM with right patellar lift and positional release for tight distal right femur today . PT-OP-R Modalities Start: 07/14/20 07:30 Freq: Status: Active Protocol: Document 08/12/20 11:18 LRN (Rec: 08/12/20 12:15 LRN [id number]) Hot Pack/Cold Pack Treatment Cold Pack Location Cryocuff Patient Position Supine Treatment Duration (minutes) 10 PT-OP-T Assessment and Plan Start: 07/14/20 07:30 Freq: Status: Active Protocol: Document 08/26/20 12:15 MB (Rec: 08/26/20 13:00 MB [id number]) Physical Therapy Assessment Rehab Potential Rehabilitation Potential Good Evaluation Complexity Number of Personal Factors/Comorbidities 1-2 Number of Body Systems Impaired 1-2 Clinical Presentation at Evaluation Stable Impairments Impairments Activity Tolerance,Balance, Edema,Functional Mobility,Gait ,Integument,Pain,Posture,ROM, Sensation,Soft Tissue Mobility ,Strength Goals Six Mechanical Manufacturing Technician Goal (LTG) Pt will be able to slide right heel up to above left knee in sitting to allow better ease of donning socks and to get on motorcycle by 10/19/2020. 08/18/2020: In hook lying, active left hip ER is 48 deg and active right hip ER is 46 deg LTG Duration 8 weeks 6 Mechanical Manufacturing Technician Goal (LTG) Pt will perform progressive HEP with I to improve ROM, flexibility, gait and strength by 10/19/2020. 08/18/2020: Pt is performing initial HEP exercises LTG Duration 8 weeks 5 Mechanical Manufacturing Technician Goal (LTG) Pt will gait train at least 1600 feet in 6 minutes without AD to improve community ambulation by 10/19/2020. 08/18/2020: Pt gait trains 1463 feet in 6 minutes LTG Duration 8 weeks Four Senior Living Goal (LTG) Pt will present with an improved LEF score to reflect no more than 20% impairment to reflect improved functional mobility by 10/19/2020. 08/18/2020: LEF score reflects 33.75% impairment LTG Duration 8 weeks Three Senior Living Goal (LTG) Pt will present with improved right knee AROM from 0-120 deg to improve transfers by 2020. 08/18/2020: 3-116 deg right knee AROM in supine today LTG Duration 8 weeks One Mechanical Manufacturing Technician Goal (LTG) Pt will perform 12 reps sit to stand without UE support in 30 sec to improve functional strength by 10/19/2020. 08/18/2020: Pt performs 7 reps sit to stand without UE support and pt reports mild tightness in the front of both knees LTG Duration 8 weeks Assessment Summary Assessment Counterstrain cranial fascial scan reveals left thorax tension and pt reports old rib fractures on left and falling in hole. Right patellar movement and discomfort is better after Counterstrain treatment. Con't Counterstrain in future and progress exercises. Physical Therapy Plan Frequency and Duration Frequency of Treatment 2x/Week Duration of Treatment 8 weeks Plan of Care Start Date 08/18/20 Plan of Care End Date 10/20/20 Therapeutic Interventions Therapeutic Interventions Balance Training,Canalithic Repositioning,Gait Training, Home Exercise Program,Joint Mobilizations,Manual Therapy, Neuromuscular Re-education, Patient/Caregiver Education, Self-Care/Home Management, Sensory Integration,Soft Tissue Mobilization,Taping, Therapeutic Activities, Therapeutic Exercises Next Visit Focus/Plan Next Note Type Treatment Note Next Visit Plan Con't manual work. In future treatments, progress HEP including Kade gage.
--- NOTE | 2020-08-28 10:32 | PT.OTN ---
Current Diagnoses Unilateral primary osteoarthritis, right knee (08/28/20) Physical Therapy Treatment Note PT-OP-A Visit Information Start: 07/14/20 07:30 Freq: Status: Active Protocol: Document 08/28/20 09:46 MB (Rec: 08/28/20 10:25 MB [id number]) Out-Patient Physical Therapy Visit Information Visit Information Visit Type Treatment Note Visit Start Time 09:46 Visit Stop Time 10:30 Total Visit Minutes 44 Visit Number 12 PT-OP-B Current Condition Start: 07/14/20 07:30 Freq: Status: Active Protocol: Document 07/14/20 09:50 MB (Rec: 07/14/20 10:07 MB [id number]) Current Condition History of Current Condition Onset Date 07/08/2020 Current Complaints Right leg swelling is stopping me from getting any more movement History of Current Condition R partial total knee surgery, medial side on 07/08/2020. Pt reports he had PT before surgery and had to stop. Pt states that in the winter 2019 , he hurt his knee when shoveling show after it was put in front of his driveway by the [employer]. Pt carries straight cane on the right side and is not open to carrying the cane in his left hand. He has a lot of pain in his right knee on the front, side and back of knee. He rates pain up to 5/10. He is icing 6x/day. He spends most of the day lying on his back with leg up on coffee table. He lives alone, he has a single story home, w/c accessibility. He has a rollator that he uses at home when he needs it. This is his first time away from home. He got a ride to PT. 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 He is concerned about how the process has been going as far as surgical visits and follow- up. Pt has not been performing many exercises since surgery d /t pain. He has a recumbent bike and has not been able to do it. Pt is taking pain medication that is making him sleep a lot and have trouble thinking like he would like to . Prior Treatments and Tests PT before surgery. Pt states that US and head was helpful. Treatment Goals Patient/Caregiver Goals To get back to be able to do what I could do before. This includes riding my motorcycle and flying. My leg has to work . PT-OP-C Subjective Start: 07/14/20 07:30 Freq: Status: Active Protocol: Document 08/28/20 09:46 MB (Rec: 08/28/20 10:25 MB [id number]) OP-PT Subjective Patient Comments Patient Comments The treatment was really helpful. I have not had the same pain that I've had for 15 years. Pt reports improvement in old left sided rib pain and B leg pain. He reports walking is better. PT-OP-D Balance Start: 07/14/20 07:30 Freq: Status: Active Protocol: Document 07/14/20 09:50 MB (Rec: 07/14/20 16:07 MB [id number]) OP-PT Balance Assessment Sitting Balance Static Sitting Balance Ability Good Dynamic Sitting Balance Ability Good Sitting Balance Comments UE support for dynamic sitting balance and pt cannot tolerate sit to stands today Standing Balance Static Standing Balance Ability Poor Dynamic Standing Balance Ability Poor Standing Balance Comments Pt uses SPC or reaches for mat for standing Carranza Fall Scale Copyright Permission PT-OP-G Mobility & Gait Start: 07/14/20 07:30 Freq: Status: Active Protocol: Document 07/14/20 09:50 MB (Rec: 07/14/20 16:07 MB [id number]) OP Gait Assessment Gait Gait Assistance Required: Independent Distance (Feet) 50 Assistive Devices Assistive Device Straight Cane Orthotic/Prosthetic Devices or Brace: No Gait Deviations General Gait Pattern Antalgic,Decreased Stride Length,Decreased Feet Clearance,Flexed Trunk,Lateral Trunk Lean,Step-to Gait Factors Limiting Gait Function Factors Limiting Gait Function Decreased Strength,Limited Range of Motion,Pain,Poor Balance,Poor Safety Awareness Comments Gait Comments Pt arrives using SPC in right hand and when PT suggests that he try in his left hand in order to unweight right LE, he states, I'm not going to do that. Pt does agree to try this after assessment. His gait is less antalgic with SPC in left hand. PT-OP-K Range of Motion Start: 07/14/20 07:30 Freq: Status: Active Protocol: Document 08/12/20 11:18 LRN (Rec: 08/12/20 12:15 LRN [id number]) Knee Goniometric Range of Motion Knee Right Knee ROM WFL No Patient Position Supine Flexion Active (degrees) 105 Flexion Passive (degrees) 112 Extension Active (degrees) 8 Extension Passive (degrees) 5 PT-OP-M Strength Start: 07/14/20 07:30 Freq: Status: Active Protocol: Document 07/14/20 09:50 MB (Rec: 07/14/20 16:07 MB [id number]) Hip Strength Hip Manual Muscle Testing Right Comments Pt states that he does not want PT to MMT his right LE today d/t fear of increasing pain in his right leg Left Flexion (L2) 5 Normal Extension (S1) 4 Good Comments Pt supine Knee Strength Knee Manual Muscle Testing Right Comments Pt states that he does not want PT to MMT his right LE today d/t fear of increasing pain in his right leg Left Flexion (S2) 5 Normal Extension (L3) 5 Normal Ankle/Foot Strength Ankle and Foot Manual Muscle Testing Left Dorsiflexion (L4) 5 Normal Right Comments Pt states that he does not want PT to MMT his right LE today d/t fear of increasing pain in his right leg Toe Strength Toe Manual Muscle Testing Left Great Toe Extension 5 Normal Right Great Toe Comments Pt states that he does not want PT to MMT his right LE today d/t fear of increasing pain in his right leg PT-OP-Q Treatments Start: 07/14/20 07:30 Freq: Status: Active Protocol: Document 08/28/20 09:46 MB (Rec: 08/28/20 10:25 MB [id number]) Manual Therapy Treatment Other Other Manual Treatments Pt agrees to Counterstrain to assess and treat fascial tension and pt presents with tension in the following fascial systems: spinal medullary lymphatic venous and PT treats stacks in this system from cervical to lumbar spine. Pt also treats stacks in LE sinuvertebral system. PT-OP-R Modalities Start: 07/14/20 07:30 Freq: Status: Active Protocol: Document 08/12/20 11:18 LRN (Rec: 08/12/20 12:15 LRN [id number]) Hot Pack/Cold Pack Treatment Cold Pack Location Cryocuff Patient Position Supine Treatment Duration (minutes) 10 PT-OP-T Assessment and Plan Start: 07/14/20 07:30 Freq: Status: Active Protocol: Document 08/28/20 09:46 MB (Rec: 08/28/20 10:25 MB [id number]) Physical Therapy Assessment Rehab Potential Rehabilitation Potential Good Evaluation Complexity Number of Personal Factors/Comorbidities 1-2 Number of Body Systems Impaired 1-2 Clinical Presentation at Evaluation Stable Impairments Impairments Activity Tolerance,Balance, Edema,Functional Mobility,Gait ,Integument,Pain,Posture,ROM, Sensation,Soft Tissue Mobility ,Strength Goals Six Vulnerability Researcher Goal (LTG) Pt will be able to slide right heel up to above left knee in sitting to allow better ease of donning socks and to get on motorcycle by 10/19/2020. 08/18/2020: In hook lying, active left hip ER is 48 deg and active right hip ER is 46 deg LTG Duration 8 weeks 6 Nursing Home Goal (LTG) Pt will perform progressive HEP with I to improve ROM, flexibility, gait and strength by 10/19/2020. 08/18/2020: Pt is performing initial HEP exercises LTG Duration 8 weeks 5 Vulnerability Researcher Goal (LTG) Pt will gait train at least 1600 feet in 6 minutes without AD to improve community ambulation by 10/19/2020. 08/18/2020: Pt gait trains 1463 feet in 6 minutes LTG Duration 8 weeks Four Vulnerability Researcher Goal (LTG) Pt will present with an improved LEF score to reflect no more than 20% impairment to reflect improved functional mobility by 10/19/2020. 08/18/2020: LEF score reflects 33.75% impairment LTG Duration 8 weeks Three Vulnerability Researcher Goal (LTG) Pt will present with improved right knee AROM from 0-120 deg to improve transfers by 2020. 08/18/2020: 3-116 deg right knee AROM in supine today LTG Duration 8 weeks One Vulnerability Researcher Goal (LTG) Pt will perform 12 reps sit to stand without UE support in 30 sec to improve functional strength by 10/19/2020. 08/18/2020: Pt performs 7 reps sit to stand without UE support and pt reports mild tightness in the front of both knees LTG Duration 8 weeks Assessment Summary Assessment Right tibial tension is much better after Counterstrain and pt feels better after Counterstrain so will con't to assess and treat as needed. Physical Therapy Plan Frequency and Duration Frequency of Treatment 2x/Week Duration of Treatment 8 weeks Plan of Care Start Date 08/18/20 Plan of Care End Date 10/20/20 Therapeutic Interventions Therapeutic Interventions Balance Training,Canalithic Repositioning,Gait Training, Home Exercise Program,Joint Mobilizations,Manual Therapy, Neuromuscular Re-education, Patient/Caregiver Education, Self-Care/Home Management, Sensory Integration,Soft Tissue Mobilization,Taping, Therapeutic Activities, Therapeutic Exercises Next Visit Focus/Plan Next Note Type Treatment Note Next Visit Plan Con't manual work. In future treatments, progress HEP including Kade gage.
--- NOTE | 2020-09-02 10:32 | PT.OTN ---
Current Diagnoses Unilateral primary osteoarthritis, right knee (09/02/20) Physical Therapy Treatment Note PT-OP-A Visit Information Start: 07/14/20 07:30 Freq: Status: Active Protocol: Document 09/02/20 09:46 MB (Rec: 09/02/20 10:14 MB [id number]) Out-Patient Physical Therapy Visit Information Visit Information Visit Type Treatment Note Visit Start Time 09:46 Visit Stop Time 10:30 Total Visit Minutes 44 Visit Number 13 PT-OP-B Current Condition Start: 07/14/20 07:30 Freq: Status: Active Protocol: Document 07/14/20 09:50 MB (Rec: 07/14/20 10:07 MB [id number]) Current Condition History of Current Condition Onset Date 07/08/2020 Current Complaints Right leg swelling is stopping me from getting any more movement History of Current Condition R partial total knee surgery, medial side on 07/08/2020. Pt reports he had PT before surgery and had to stop. Pt states that in the winter 2019 , he hurt his knee when shoveling show after it was put in front of his driveway by the [employer]. Pt carries straight cane on the right side and is not open to carrying the cane in his left hand. He has a lot of pain in his right knee on the front, side and back of knee. He rates pain up to 5/10. He is icing 6x/day. He spends most of the day lying on his back with leg up on coffee table. He lives alone, he has a single story home, w/c accessibility. He has a rollator that he uses at home when he needs it. This is his first time away from home. He got a ride to PT. 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 He is concerned about how the process has been going as far as surgical visits and follow- up. Pt has not been performing many exercises since surgery d /t pain. He has a recumbent bike and has not been able to do it. Pt is taking pain medication that is making him sleep a lot and have trouble thinking like he would like to . Prior Treatments and Tests PT before surgery. Pt states that US and head was helpful. Treatment Goals Patient/Caregiver Goals To get back to be able to do what I could do before. This includes riding my motorcycle and flying. My leg has to work . PT-OP-C Subjective Start: 07/14/20 07:30 Freq: Status: Active Protocol: Document 09/02/20 09:46 MB (Rec: 09/02/20 10:14 MB [id number]) OP-PT Subjective Patient Comments Patient Comments Pt reports that the discomfort on the sides of his femur is better. PT-OP-D Balance Start: 07/14/20 07:30 Freq: Status: Active Protocol: Document 07/14/20 09:50 MB (Rec: 07/14/20 16:07 MB [id number]) OP-PT Balance Assessment Sitting Balance Static Sitting Balance Ability Good Dynamic Sitting Balance Ability Good Sitting Balance Comments UE support for dynamic sitting balance and pt cannot tolerate sit to stands today Standing Balance Static Standing Balance Ability Poor Dynamic Standing Balance Ability Poor Standing Balance Comments Pt uses SPC or reaches for mat for standing Carranza Fall Scale Copyright Permission PT-OP-G Mobility & Gait Start: 07/14/20 07:30 Freq: Status: Active Protocol: Document 07/14/20 09:50 MB (Rec: 07/14/20 16:07 MB [id number]) OP Gait Assessment Gait Gait Assistance Required: Independent Distance (Feet) 50 Assistive Devices Assistive Device Straight Cane Orthotic/Prosthetic Devices or Brace: No Gait Deviations General Gait Pattern Antalgic,Decreased Stride Length,Decreased Feet Clearance,Flexed Trunk,Lateral Trunk Lean,Step-to Gait Factors Limiting Gait Function Factors Limiting Gait Function Decreased Strength,Limited Range of Motion,Pain,Poor Balance,Poor Safety Awareness Comments Gait Comments Pt arrives using SPC in right hand and when PT suggests that he try in his left hand in order to unweight right LE, he states, I'm not going to do that. Pt does agree to try this after assessment. His gait is less antalgic with SPC in left hand. PT-OP-K Range of Motion Start: 07/14/20 07:30 Freq: Status: Active Protocol: Document 08/12/20 11:18 LRN (Rec: 08/12/20 12:15 LRN [id number]) Knee Goniometric Range of Motion Knee Right Knee ROM WFL No Patient Position Supine Flexion Active (degrees) 105 Flexion Passive (degrees) 112 Extension Active (degrees) 8 Extension Passive (degrees) 5 PT-OP-M Strength Start: 07/14/20 07:30 Freq: Status: Active Protocol: Document 07/14/20 09:50 MB (Rec: 07/14/20 16:07 MB [id number]) Hip Strength Hip Manual Muscle Testing Right Comments Pt states that he does not want PT to MMT his right LE today d/t fear of increasing pain in his right leg Left Flexion (L2) 5 Normal Extension (S1) 4 Good Comments Pt supine Knee Strength Knee Manual Muscle Testing Right Comments Pt states that he does not want PT to MMT his right LE today d/t fear of increasing pain in his right leg Left Flexion (S2) 5 Normal Extension (L3) 5 Normal Ankle/Foot Strength Ankle and Foot Manual Muscle Testing Left Dorsiflexion (L4) 5 Normal Right Comments Pt states that he does not want PT to MMT his right LE today d/t fear of increasing pain in his right leg Toe Strength Toe Manual Muscle Testing Left Great Toe Extension 5 Normal Right Great Toe Comments Pt states that he does not want PT to MMT his right LE today d/t fear of increasing pain in his right leg PT-OP-Q Treatments Start: 07/14/20 07:30 Freq: Status: Active Protocol: Document 09/02/20 09:46 MB (Rec: 09/02/20 10:14 MB [id number]) Therapeutic Exercises Supine Exercises Abdominal drawing in Comments 2 reps, several second holds Kade stretch Side bilateral Comments Abd drawing in, APs, heel back Bridging with band around knees Comments Level 1 band around knees, legs neutral and ER, 5 reps, held up to 1.5 min Manual Therapy Treatment Other Other Manual Treatments STM right calf, quads and hamstrings today and lymphatic lavage d/t edema, MWM with right patellar lift by PT and pt performing active heel slide PT-OP-R Modalities Start: 07/14/20 07:30 Freq: Status: Active Protocol: Document 08/12/20 11:18 LRN (Rec: 08/12/20 12:15 LRN [id number]) Hot Pack/Cold Pack Treatment Cold Pack Location Cryocuff Patient Position Supine Treatment Duration (minutes) 10 PT-OP-T Assessment and Plan Start: 07/14/20 07:30 Freq: Status: Active Protocol: Document 09/02/20 09:46 MB (Rec: 09/02/20 10:14 MB [id number]) Physical Therapy Assessment Rehab Potential Rehabilitation Potential Good Evaluation Complexity Number of Personal Factors/Comorbidities 1-2 Number of Body Systems Impaired 1-2 Clinical Presentation at Evaluation Stable Impairments Impairments Activity Tolerance,Balance, Edema,Functional Mobility,Gait ,Integument,Pain,Posture,ROM, Sensation,Soft Tissue Mobility ,Strength Goals Six Regional Clinical Director Goal (LTG) Pt will be able to slide right heel up to above left knee in sitting to allow better ease of donning socks and to get on motorcycle by 10/19/2020. 08/18/2020: In hook lying, active left hip ER is 48 deg and active right hip ER is 46 deg LTG Duration 8 weeks 6 Intermediate Goal (LTG) Pt will perform progressive HEP with I to improve ROM, flexibility, gait and strength by 10/19/2020. 08/18/2020: Pt is performing initial HEP exercises LTG Duration 8 weeks 5 Regional Clinical Director Goal (LTG) Pt will gait train at least 1600 feet in 6 minutes without AD to improve community ambulation by 10/19/2020. 08/18/2020: Pt gait trains 1463 feet in 6 minutes LTG Duration 8 weeks Four Intermediate Goal (LTG) Pt will present with an improved LEF score to reflect no more than 20% impairment to reflect improved functional mobility by 10/19/2020. 08/18/2020: LEF score reflects 33.75% impairment LTG Duration 8 weeks Three Intermediate Goal (LTG) Pt will present with improved right knee AROM from 0-120 deg to improve transfers by 2020. 08/18/2020: 3-116 deg right knee AROM in supine today LTG Duration 8 weeks One Intermediate Goal (LTG) Pt will perform 12 reps sit to stand without UE support in 30 sec to improve functional strength by 10/19/2020. 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 Added theraband to help with positioning and strengthening. Added hip flexor stretch today. Edema today, theraband leaves indention and ed pt to be careful with this Physical Therapy Plan Frequency and Duration Frequency of Treatment 2x/Week Duration of Treatment 8 weeks Plan of Care Start Date 08/18/20 Plan of Care End Date 10/20/20 Therapeutic Interventions Therapeutic Interventions Balance Training,Canalithic Repositioning,Gait Training, Home Exercise Program,Joint Mobilizations,Manual Therapy, Neuromuscular Re-education, Patient/Caregiver Education, Self-Care/Home Management, Sensory Integration,Soft Tissue Mobilization,Taping, Therapeutic Activities, Therapeutic Exercises Next Visit Focus/Plan Next Note Type Treatment Note Next Visit Plan Con't manual work and progress exercises. Hamstring stretch with APs
--- NOTE | 2020-09-05 14:32 | PT.OTN ---
Current Diagnoses Unilateral primary osteoarthritis, right knee (09/05/20) Physical Therapy Treatment Note PT-OP-A Visit Information Start: 07/14/20 07:30 Freq: Status: Active Protocol: Document 09/05/20 13:48 MB (Rec: 09/05/20 14:15 MB [id number]) Out-Patient Physical Therapy Visit Information Visit Information Visit Type Treatment Note Visit Start Time 13:48 Visit Stop Time 14:15 Total Visit Minutes 42 Visit Number 14 PT-OP-B Current Condition Start: 07/14/20 07:30 Freq: Status: Active Protocol: Document 07/14/20 09:50 MB (Rec: 07/14/20 10:07 MB [id number]) Current Condition History of Current Condition Onset Date 07/08/2020 Current Complaints Right leg swelling is stopping me from getting any more movement History of Current Condition R partial total knee surgery, medial side on 07/08/2020. Pt reports he had PT before surgery and had to stop. Pt states that in the winter 2019 , he hurt his knee when shoveling show after it was put in front of his driveway by the [employer]. Pt carries straight cane on the right side and is not open to carrying the cane in his left hand. He has a lot of pain in his right knee on the front, side and back of knee. He rates pain up to 5/10. He is icing 6x/day. He spends most of the day lying on his back with leg up on coffee table. He lives alone, he has a single story home, w/c accessibility. He has a rollator that he uses at home when he needs it. This is his first time away from home. He got a ride to PT. 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 He is concerned about how the process has been going as far as surgical visits and follow- up. Pt has not been performing many exercises since surgery d /t pain. He has a recumbent bike and has not been able to do it. Pt is taking pain medication that is making him sleep a lot and have trouble thinking like he would like to . Prior Treatments and Tests PT before surgery. Pt states that US and head was helpful. Treatment Goals Patient/Caregiver Goals To get back to be able to do what I could do before. This includes riding my motorcycle and flying. My leg has to work . PT-OP-C Subjective Start: 07/14/20 07:30 Freq: Status: Active Protocol: Document 09/05/20 13:48 MB (Rec: 09/05/20 14:15 MB [id number]) OP-PT Subjective Patient Comments Patient Comments I've been running all around today. PT-OP-D Balance Start: 07/14/20 07:30 Freq: Status: Active Protocol: Document 07/14/20 09:50 MB (Rec: 07/14/20 16:07 MB [id number]) OP-PT Balance Assessment Sitting Balance Static Sitting Balance Ability Good Dynamic Sitting Balance Ability Good Sitting Balance Comments UE support for dynamic sitting balance and pt cannot tolerate sit to stands today Standing Balance Static Standing Balance Ability Poor Dynamic Standing Balance Ability Poor Standing Balance Comments Pt uses SPC or reaches for mat for standing Carranza Fall Scale Copyright Permission PT-OP-G Mobility & Gait Start: 07/14/20 07:30 Freq: Status: Active Protocol: Document 07/14/20 09:50 MB (Rec: 07/14/20 16:07 MB [id number]) OP Gait Assessment Gait Gait Assistance Required: Independent Distance (Feet) 50 Assistive Devices Assistive Device Straight Cane Orthotic/Prosthetic Devices or Brace: No Gait Deviations General Gait Pattern Antalgic,Decreased Stride Length,Decreased Feet Clearance,Flexed Trunk,Lateral Trunk Lean,Step-to Gait Factors Limiting Gait Function Factors Limiting Gait Function Decreased Strength,Limited Range of Motion,Pain,Poor Balance,Poor Safety Awareness Comments Gait Comments Pt arrives using SPC in right hand and when PT suggests that he try in his left hand in order to unweight right LE, he states, I'm not going to do that. Pt does agree to try this after assessment. His gait is less antalgic with SPC in left hand. PT-OP-K Range of Motion Start: 07/14/20 07:30 Freq: Status: Active Protocol: Document 08/12/20 11:18 LRN (Rec: 08/12/20 12:15 LRN [id number]) Knee Goniometric Range of Motion Knee Right Knee ROM WFL No Patient Position Supine Flexion Active (degrees) 105 Flexion Passive (degrees) 112 Extension Active (degrees) 8 Extension Passive (degrees) 5 PT-OP-M Strength Start: 07/14/20 07:30 Freq: Status: Active Protocol: Document 07/14/20 09:50 MB (Rec: 07/14/20 16:07 MB [id number]) Hip Strength Hip Manual Muscle Testing Right Comments Pt states that he does not want PT to MMT his right LE today d/t fear of increasing pain in his right leg Left Flexion (L2) 5 Normal Extension (S1) 4 Good Comments Pt supine Knee Strength Knee Manual Muscle Testing Right Comments Pt states that he does not want PT to MMT his right LE today d/t fear of increasing pain in his right leg Left Flexion (S2) 5 Normal Extension (L3) 5 Normal Ankle/Foot Strength Ankle and Foot Manual Muscle Testing Left Dorsiflexion (L4) 5 Normal Right Comments Pt states that he does not want PT to MMT his right LE today d/t fear of increasing pain in his right leg Toe Strength Toe Manual Muscle Testing Left Great Toe Extension 5 Normal Right Great Toe Comments Pt states that he does not want PT to MMT his right LE today d/t fear of increasing pain in his right leg PT-OP-Q Treatments Start: 07/14/20 07:30 Freq: Status: Active Protocol: Document 09/05/20 13:48 MB (Rec: 09/05/20 14:15 MB [id number]) Cardio Equipment Bicycle (Upright) Duration (Minutes) 6 Resistance 10 Seat Position 9 Therapeutic Exercises Supine Exercises Hamstring stretch, AP, bringing leg across body and outside Side bilateral Comments Up to 1' hold, only hamstring, AP and lateral hip stretch today, B Bridging with band around knees Comments Level 1 band and feet together , clam today Manual Therapy Treatment Other Other Manual Treatments MWM with patellar lift right leg with pt performing active HS, STM right vastus lateralis and pt performing HS. He con' t with tension distal lateral quads PT-OP-R Modalities Start: 07/14/20 07:30 Freq: Status: Active Protocol: Document 08/12/20 11:18 LRN (Rec: 08/12/20 12:15 LRN [id number]) Hot Pack/Cold Pack Treatment Cold Pack Location Cryocuff Patient Position Supine Treatment Duration (minutes) 10 PT-OP-T Assessment and Plan Start: 07/14/20 07:30 Freq: Status: Active Protocol: Document 09/05/20 13:48 MB (Rec: 09/05/20 14:15 MB [id number]) Physical Therapy Assessment Rehab Potential Rehabilitation Potential Good Evaluation Complexity Number of Personal Factors/Comorbidities 1-2 Number of Body Systems Impaired 1-2 Clinical Presentation at Evaluation Stable Impairments Impairments Activity Tolerance,Balance, Edema,Functional Mobility,Gait ,Integument,Pain,Posture,ROM, Sensation,Soft Tissue Mobility ,Strength Goals Six Rn Advanced Goal (LTG) Pt will be able to slide right heel up to above left knee in sitting to allow better ease of donning socks and to get on motorcycle by 10/19/2020. 08/18/2020: In hook lying, active left hip ER is 48 deg and active right hip ER is 46 deg LTG Duration 8 weeks 6 Custodial Goal (LTG) Pt will perform progressive HEP with I to improve ROM, flexibility, gait and strength by 10/19/2020. 08/18/2020: Pt is performing initial HEP exercises LTG Duration 8 weeks 5 Custodial Goal (LTG) Pt will gait train at least 1600 feet in 6 minutes without AD to improve community ambulation by 10/19/2020. 08/18/2020: Pt gait trains 1463 feet in 6 minutes LTG Duration 8 weeks Four Custodial Goal (LTG) Pt will present with an improved LEF score to reflect no more than 20% impairment to reflect improved functional mobility by 10/19/2020. 08/18/2020: LEF score reflects 33.75% impairment LTG Duration 8 weeks Three Custodial Goal (LTG) Pt will present with improved right knee AROM from 0-120 deg to improve transfers by 2020. 08/18/2020: 3-116 deg right knee AROM in supine today LTG Duration 8 weeks One Custodial Goal (LTG) Pt will perform 12 reps sit to stand without UE support in 30 sec to improve functional strength by 10/19/2020. 08/18/2020: Pt performs 7 reps sit to stand without UE support and pt reports mild tightness in the front of both knees LTG Duration 8 weeks Assessment Summary Assessment Pt reports that the bridging is helping him lift his foot over the door sill in the car. Pt's B feet are more even with bridging today and pt reports that his right knee flexion appears more equal to the left today. Physical Therapy Plan Frequency and Duration Frequency of Treatment 2x/Week Duration of Treatment 8 weeks Plan of Care Start Date 08/18/20 Plan of Care End Date 10/20/20 Therapeutic Interventions Therapeutic Interventions Balance Training,Canalithic Repositioning,Gait Training, Home Exercise Program,Joint Mobilizations,Manual Therapy, Neuromuscular Re-education, Patient/Caregiver Education, Self-Care/Home Management, Sensory Integration,Soft Tissue Mobilization,Taping, Therapeutic Activities, Therapeutic Exercises Next Visit Focus/Plan Next Note Type Treatment Note Next Visit Plan Con't manual work and review current exercises next treatment date In two treatments, progress quad strengthening
--- NOTE | 2020-09-08 10:36 | PT.OTN ---
Current Diagnoses Unilateral primary osteoarthritis, right knee (09/08/20) Physical Therapy Treatment Note PT-OP-A Visit Information Start: 07/14/20 07:30 Freq: Status: Active Protocol: Document 09/08/20 09:52 SP (Rec: 09/08/20 11:43 SP [id number]) Out-Patient Physical Therapy Visit Information Visit Information Visit Type Treatment Note Visit Start Time 09:52 Visit Stop Time 10:36 Total Visit Minutes 44 Visit Number 15 Number of OPHTHALMIC TECH Visits 1 PT-OP-B Current Condition Start: 07/14/20 07:30 Freq: Status: Active Protocol: Document 07/14/20 09:50 MB (Rec: 07/14/20 10:07 MB [id number]) Current Condition History of Current Condition Onset Date 07/08/2020 Current Complaints Right leg swelling is stopping me from getting any more movement History of Current Condition R partial total knee surgery, medial side on 07/08/2020. Pt reports he had PT before surgery and had to stop. Pt states that in the winter 2019 , he hurt his knee when shoveling show after it was put in front of his driveway by the [facility]. Pt carries straight cane on the right side and is not open to carrying the cane in his left hand. He has a lot of pain in his right knee on the front, side and back of knee. He rates pain up to 5/10. He is icing 6x/day. He spends most of the day lying on his back with leg up on coffee table. He lives alone, he has a single story home, w/c accessibility. He has a rollator that he uses at home when he needs it. This is his first time away from home. He got a ride to PT. 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 He is concerned about how the process has been going as far as surgical visits and follow- up. Pt has not been performing many exercises since surgery d /t pain. He has a recumbent bike and has not been able to do it. Pt is taking pain medication that is making him sleep a lot and have trouble thinking like he would like to . Prior Treatments and Tests PT before surgery. Pt states that US and head was helpful. Treatment Goals Patient/Caregiver Goals To get back to be able to do what I could do before. This includes riding my motorcycle and flying. My leg has to work . PT-OP-C Subjective Start: 07/14/20 07:30 Freq: Status: Active Protocol: Document 09/08/20 09:52 SP (Rec: 09/08/20 11:43 SP [id number]) OP-PT Subjective Patient Comments Patient Comments Pt states uses recumbent biked 30 min and walks [employer] [place] 2 miles. PT-OP-D Balance Start: 07/14/20 07:30 Freq: Status: Active Protocol: Document 07/14/20 09:50 MB (Rec: 07/14/20 16:07 MB [id number]) OP-PT Balance Assessment Sitting Balance Static Sitting Balance Ability Good Dynamic Sitting Balance Ability Good Sitting Balance Comments UE support for dynamic sitting balance and pt cannot tolerate sit to stands today Standing Balance Static Standing Balance Ability Poor Dynamic Standing Balance Ability Poor Standing Balance Comments Pt uses SPC or reaches for mat for standing Carranza Fall Scale Copyright Permission PT-OP-G Mobility & Gait Start: 07/14/20 07:30 Freq: Status: Active Protocol: Document 07/14/20 09:50 MB (Rec: 07/14/20 16:07 MB [id number]) OP Gait Assessment Gait Gait Assistance Required: Independent Distance (Feet) 50 Assistive Devices Assistive Device Straight Cane Orthotic/Prosthetic Devices or Brace: No Gait Deviations General Gait Pattern Antalgic,Decreased Stride Length,Decreased Feet Clearance,Flexed Trunk,Lateral Trunk Lean,Step-to Gait Factors Limiting Gait Function Factors Limiting Gait Function Decreased Strength,Limited Range of Motion,Pain,Poor Balance,Poor Safety Awareness Comments Gait Comments Pt arrives using SPC in right hand and when PT suggests that he try in his left hand in order to unweight right LE, he states, I'm not going to do that. Pt does agree to try this after assessment. His gait is less antalgic with SPC in left hand. PT-OP-K Range of Motion Start: 07/14/20 07:30 Freq: Status: Active Protocol: Document 09/08/20 09:52 SP (Rec: 09/08/20 11:43 SP [id number]) Knee Goniometric Range of Motion Knee Right Knee ROM WFL No Patient Position Supine Flexion Active (degrees) 115 Flexion Passive (degrees) 112 Extension Active (degrees) 4 Extension Passive (degrees) 8 Comments R knee ext at rest 8 (foot propped on cushion) PT-OP-M Strength Start: 07/14/20 07:30 Freq: Status: Active Protocol: Document 07/14/20 09:50 MB (Rec: 07/14/20 16:07 MB [id number]) Hip Strength Hip Manual Muscle Testing Right Comments Pt states that he does not want PT to MMT his right LE today d/t fear of increasing pain in his right leg Left Flexion (L2) 5 Normal Extension (S1) 4 Good Comments Pt supine Knee Strength Knee Manual Muscle Testing Right Comments Pt states that he does not want PT to MMT his right LE today d/t fear of increasing pain in his right leg Left Flexion (S2) 5 Normal Extension (L3) 5 Normal Ankle/Foot Strength Ankle and Foot Manual Muscle Testing Left Dorsiflexion (L4) 5 Normal Right Comments Pt states that he does not want PT to MMT his right LE today d/t fear of increasing pain in his right leg Toe Strength Toe Manual Muscle Testing Left Great Toe Extension 5 Normal Right Great Toe Comments Pt states that he does not want PT to MMT his right LE today d/t fear of increasing pain in his right leg PT-OP-Q Treatments Start: 07/14/20 07:30 Freq: Status: Active Protocol: Document 09/08/20 09:52 SP (Rec: 09/08/20 11:43 SP [id number]) Cardio Equipment Recumbent Bicycle Duration (Minutes) 6 Resistance 13 Seat Position 10 Other 2.09 miles Therapeutic Exercises Supine Exercises Hamstring stretch, AP, bringing leg across body and outside Side bilateral Equipment Used strap Reps/Minutes 3x30 Comments HS (w/ hip IR/ER) , ITB Kade stretch Side bilateral Comments Abd drawing in, APs, heel back Bridging with band around knees Supine Exercise Name feet together Resistance #1 TB Reps/Minutes 1 rep x2 min (per pt report) Comments parallel BLE, glut facilitation Standing Exercises TKE w /TB Resistance Tb #2 Reps/Minutes x10 Comments cued tall posture and slow pacing quad/ HS facilitating movement, good resp Manual Therapy Treatment Soft Tissue Mobilization Scar Body Location R knee scar Mobilization Type Myofascial Release Intensity/Depth Superficial Body Position Supine Comments Discussed self performance with foot propped up on chair with Quad set then manual STMs Joint Mobilizations R patella mob Joint med/ lat Direction med/ lat/ sup/inf Grade II Body Position Supine Reps/Duration 2 Comments Discussed self performance with foot propped up on chair PT-OP-R Modalities Start: 07/14/20 07:30 Freq: Status: Active Protocol: Document 08/12/20 11:18 LRN (Rec: 08/12/20 12:15 LRN [id number]) Hot Pack/Cold Pack Treatment Cold Pack Location Cryocuff Patient Position Supine Treatment Duration (minutes) 10 PT-OP-T Assessment and Plan Start: 07/14/20 07:30 Freq: Status: Active Protocol: Document 09/08/20 09:52 SP (Rec: 09/08/20 11:43 SP [id number]) Physical Therapy Assessment Goals Six Penitentiary Goal (LTG) Pt will be able to slide right heel up to above left knee in sitting to allow better ease of donning socks and to get on motorcycle by 10/19/2020. 08/18/2020: In hook lying, active left hip ER is 48 deg and active right hip ER is 46 deg LTG Duration 8 weeks 6 Penitentiary Goal (LTG) Pt will perform progressive HEP with I to improve ROM, flexibility, gait and strength by 10/19/2020. 08/18/2020: Pt is performing initial HEP exercises LTG Duration 8 weeks 5 Penitentiary Goal (LTG) Pt will gait train at least 1600 feet in 6 minutes without AD to improve community ambulation by 10/19/2020. 08/18/2020: Pt gait trains 1463 feet in 6 minutes LTG Duration 8 weeks Four Home Management Supervisor Goal (LTG) Pt will present with an improved LEF score to reflect no more than 20% impairment to reflect improved functional mobility by 10/19/2020. 08/18/2020: LEF score reflects 33.75% impairment LTG Duration 8 weeks Three Penitentiary Goal (LTG) Pt will present with improved right knee AROM from 0-120 deg to improve transfers by 2020. 08/18/2020: 3-116 deg right knee AROM in supine today LTG Duration 8 weeks One Penitentiary Goal (LTG) Pt will perform 12 reps sit to stand without UE support in 30 sec to improve functional strength by 10/19/2020. 08/18/2020: Pt performs 7 reps sit to stand without UE support and pt reports mild tightness in the front of both knees LTG Duration 8 weeks Assessment Summary Assessment Pt gained 10 deg R knee flexion, 4 deg active extension upon measurements today. Over assisted R knee flexion w/ therapist poor timing PROM which caused R knee pain posterior R knee but decreased with rest. Reviewed HEP stretching, bridge and educated manual STMs/ pat mobsto allow ease of ROM. Added TKE with cued for quad facilitation and awareness of not range into hyperextension with good demonstration and response. Physical Therapy Plan Frequency and Duration Frequency of Treatment 2x/Week Duration of Treatment 8 weeks Plan of Care Start Date 08/18/20 Plan of Care End Date 10/20/20 Therapeutic Interventions Therapeutic Interventions Balance Training,Canalithic Repositioning,Gait Training, Home Exercise Program,Joint Mobilizations,Manual Therapy, Neuromuscular Re-education, Patient/Caregiver Education, Self-Care/Home Management, Sensory Integration,Soft Tissue Mobilization,Taping, Therapeutic Activities, Therapeutic Exercises Next Visit Focus/Plan Next Note Type Treatment Note Next Visit Plan Assess response to measurements, HEp review, manal and added TKE. Con't manual work and review current exercises next treatment date In two treatments, progress quad strengthening
--- NOTE | 2020-09-11 10:31 | PT.OTN ---
Current Diagnoses Unilateral primary osteoarthritis, right knee (09/11/20) Physical Therapy Treatment Note PT-OP-A Visit Information Start: 07/14/20 07:30 Freq: Status: Active Protocol: Document 09/11/20 09:45 MB (Rec: 09/11/20 10:06 MB [id number]) Out-Patient Physical Therapy Visit Information Visit Information Visit Type Treatment Note Visit Start Time 09:45 Visit Stop Time 10:30 Total Visit Minutes 45 Visit Number 16 PT-OP-B Current Condition Start: 07/14/20 07:30 Freq: Status: Active Protocol: Document 07/14/20 09:50 MB (Rec: 07/14/20 10:07 MB [id number]) Current Condition History of Current Condition Onset Date 07/08/2020 Current Complaints Right leg swelling is stopping me from getting any more movement History of Current Condition R partial total knee surgery, medial side on 07/08/2020. Pt reports he had PT before surgery and had to stop. Pt states that in the winter 2019 , he hurt his knee when shoveling show after it was put in front of his driveway by the [employer]. Pt carries straight cane on the right side and is not open to carrying the cane in his left hand. He has a lot of pain in his right knee on the front, side and back of knee. He rates pain up to 5/10. He is icing 6x/day. He spends most of the day lying on his back with leg up on coffee table. He lives alone, he has a single story home, w/c accessibility. He has a rollator that he uses at home when he needs it. This is his first time away from home. He got a ride to PT. 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 He is concerned about how the process has been going as far as surgical visits and follow- up. Pt has not been performing many exercises since surgery d /t pain. He has a recumbent bike and has not been able to do it. Pt is taking pain medication that is making him sleep a lot and have trouble thinking like he would like to . Prior Treatments and Tests PT before surgery. Pt states that US and head was helpful. Treatment Goals Patient/Caregiver Goals To get back to be able to do what I could do before. This includes riding my motorcycle and flying. My leg has to work . PT-OP-C Subjective Start: 07/14/20 07:30 Freq: Status: Active Protocol: Document 09/11/20 09:45 MB (Rec: 09/11/20 10:06 MB [id number]) OP-PT Subjective Patient Comments Patient Comments It's stiff. PT-OP-D Balance Start: 07/14/20 07:30 Freq: Status: Active Protocol: Document 07/14/20 09:50 MB (Rec: 07/14/20 16:07 MB [id number]) OP-PT Balance Assessment Sitting Balance Static Sitting Balance Ability Good Dynamic Sitting Balance Ability Good Sitting Balance Comments UE support for dynamic sitting balance and pt cannot tolerate sit to stands today Standing Balance Static Standing Balance Ability Poor Dynamic Standing Balance Ability Poor Standing Balance Comments Pt uses SPC or reaches for mat for standing Carranza Fall Scale Copyright Permission PT-OP-G Mobility & Gait Start: 07/14/20 07:30 Freq: Status: Active Protocol: Document 07/14/20 09:50 MB (Rec: 07/14/20 16:07 MB [id number]) OP Gait Assessment Gait Gait Assistance Required: Independent Distance (Feet) 50 Assistive Devices Assistive Device Straight Cane Orthotic/Prosthetic Devices or Brace: No Gait Deviations General Gait Pattern Antalgic,Decreased Stride Length,Decreased Feet Clearance,Flexed Trunk,Lateral Trunk Lean,Step-to Gait Factors Limiting Gait Function Factors Limiting Gait Function Decreased Strength,Limited Range of Motion,Pain,Poor Balance,Poor Safety Awareness Comments Gait Comments Pt arrives using SPC in right hand and when PT suggests that he try in his left hand in order to unweight right LE, he states, I'm not going to do that. Pt does agree to try this after assessment. His gait is less antalgic with SPC in left hand. PT-OP-K Range of Motion Start: 07/14/20 07:30 Freq: Status: Active Protocol: Document 09/08/20 09:52 SP (Rec: 09/08/20 11:43 SP [id number]) Knee Goniometric Range of Motion Knee Right Knee ROM WFL No Patient Position Supine Flexion Active (degrees) 115 Flexion Passive (degrees) 112 Extension Active (degrees) 4 Extension Passive (degrees) 8 Comments R knee ext at rest 8 (foot propped on cushion) PT-OP-M Strength Start: 07/14/20 07:30 Freq: Status: Active Protocol: Document 07/14/20 09:50 MB (Rec: 07/14/20 16:07 MB [id number]) Hip Strength Hip Manual Muscle Testing Right Comments Pt states that he does not want PT to MMT his right LE today d/t fear of increasing pain in his right leg Left Flexion (L2) 5 Normal Extension (S1) 4 Good Comments Pt supine Knee Strength Knee Manual Muscle Testing Right Comments Pt states that he does not want PT to MMT his right LE today d/t fear of increasing pain in his right leg Left Flexion (S2) 5 Normal Extension (L3) 5 Normal Ankle/Foot Strength Ankle and Foot Manual Muscle Testing Left Dorsiflexion (L4) 5 Normal Right Comments Pt states that he does not want PT to MMT his right LE today d/t fear of increasing pain in his right leg Toe Strength Toe Manual Muscle Testing Left Great Toe Extension 5 Normal Right Great Toe Comments Pt states that he does not want PT to MMT his right LE today d/t fear of increasing pain in his right leg PT-OP-Q Treatments Start: 07/14/20 07:30 Freq: Status: Active Protocol: Document 09/11/20 09:45 MB (Rec: 09/11/20 10:06 MB [id number]) Therapeutic Exercises Supine Exercises Heel slides Comments Performed 20 reps B to help with stiffness today Sitting Exercises LAQs Side bilateral Equipment Used Level 1 band Comments 10 reps alternating Manual Therapy Treatment Other Other Manual Treatments MWM with patellar lift right leg with pt performing active HS, STM right vastus lateralis and pt performing HS. CFM over scar PT-OP-R Modalities Start: 07/14/20 07:30 Freq: Status: Active Protocol: Document 08/12/20 11:18 LRN (Rec: 08/12/20 12:15 LRN [id number]) Hot Pack/Cold Pack Treatment Cold Pack Location Cryocuff Patient Position Supine Treatment Duration (minutes) 10 PT-OP-T Assessment and Plan Start: 07/14/20 07:30 Freq: Status: Active Protocol: Document 09/11/20 09:45 MB (Rec: 09/11/20 10:06 MB [id number]) Physical Therapy Assessment Rehab Potential Rehabilitation Potential Good Evaluation Complexity Number of Personal Factors/Comorbidities 1-2 Number of Body Systems Impaired 1-2 Clinical Presentation at Evaluation Stable Impairments Impairments Activity Tolerance,Balance, Edema,Functional Mobility,Gait ,Integument,Pain,Posture,ROM, Sensation,Soft Tissue Mobility ,Strength Goals Six Bever[employer] Sales Consultant Goal (LTG) Pt will be able to slide right heel up to above left knee in sitting to allow better ease of donning socks and to get on motorcycle by 10/19/2020. 08/18/2020: In hook lying, active left hip ER is 48 deg and active right hip ER is 46 deg LTG Duration 8 weeks 6 Mcfp Goal (LTG) Pt will perform progressive HEP with I to improve ROM, flexibility, gait and strength by 10/19/2020. 08/18/2020: Pt is performing initial HEP exercises LTG Duration 8 weeks 5 Beverage Sales Consultant Goal (LTG) Pt will gait train at least 1600 feet in 6 minutes without AD to improve community ambulation by 10/19/2020. 08/18/2020: Pt gait trains 1463 feet in 6 minutes LTG Duration 8 weeks Four Mcfp Goal (LTG) Pt will present with an improved LEF score to reflect no more than 20% impairment to reflect improved functional mobility by 10/19/2020. 08/18/2020: LEF score reflects 33.75% impairment LTG Duration 8 weeks Three Beverage Sales Consultant Goal (LTG) Pt will present with improved right knee AROM from 0-120 deg to improve transfers by 2020. 08/18/2020: 3-116 deg right knee AROM in supine today LTG Duration 8 weeks One Mcfp Goal (LTG) Pt will perform 12 reps sit to stand without UE support in 30 sec to improve functional strength by 10/19/2020. 08/18/2020: Pt performs 7 reps sit to stand without UE support and pt reports mild tightness in the front of both knees LTG Duration 8 weeks Assessment Summary Assessment Progressed knee extension in sitting today with band. Pt with some right greater than left ankle edema today. Encouraged pt to wear his compression hose on right leg when he drives down to [place] tomorrow. Progress wall squat and hip strengthening in future PT treatments. Physical Therapy Plan Frequency and Duration Frequency of Treatment 2x/Week Duration of Treatment 8 weeks Plan of Care Start Date 08/18/20 Plan of Care End Date 10/20/20 Therapeutic Interventions Therapeutic Interventions Balance Training,Canalithic Repositioning,Gait Training, Home Exercise Program,Joint Mobilizations,Manual Therapy, Neuromuscular Re-education, Patient/Caregiver Education, Self-Care/Home Management, Sensory Integration,Soft Tissue Mobilization,Taping, Therapeutic Activities, Therapeutic Exercises Next Visit Focus/Plan Next Note Type Treatment Note Next Visit Plan Progress strengthening with wall squats, hip extension and abduction, some parts of trauma release exercises for leg strengthening and flexibility
--- NOTE | 2020-09-16 10:30 | PT.OTN ---
Current Diagnoses Unilateral primary osteoarthritis, right knee (09/16/20) Physical Therapy Treatment Note PT-OP-A Visit Information Start: 07/14/20 07:30 Freq: Status: Active Protocol: Document 09/16/20 09:46 MB (Rec: 09/16/20 10:11 MB [id number]) Out-Patient Physical Therapy Visit Information Visit Information Visit Type Treatment Note Visit Start Time 09:46 Visit Stop Time 10:30 Total Visit Minutes 44 Visit Number 17 PT-OP-B Current Condition Start: 07/14/20 07:30 Freq: Status: Active Protocol: Document 07/14/20 09:50 MB (Rec: 07/14/20 10:07 MB [id number]) Current Condition History of Current Condition Onset Date 07/08/2020 Current Complaints Right leg swelling is stopping me from getting any more movement History of Current Condition R partial total knee surgery, medial side on 07/08/2020. Pt reports he had PT before surgery and had to stop. Pt states that in the winter 2019 , he hurt his knee when shoveling show after it was put in front of his driveway by the [employer]. Pt carries straight cane on the right side and is not open to carrying the cane in his left hand. He has a lot of pain in his right knee on the front, side and back of knee. He rates pain up to 5/10. He is icing 6x/day. He spends most of the day lying on his back with leg up on coffee table. He lives alone, he has a single story home, w/c accessibility. He has a rollator that he uses at home when he needs it. This is his first time away from home. He got a ride to PT. 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 He is concerned about how the process has been going as far as surgical visits and follow- up. Pt has not been performing many exercises since surgery d /t pain. He has a recumbent bike and has not been able to do it. Pt is taking pain medication that is making him sleep a lot and have trouble thinking like he would like to . Prior Treatments and Tests PT before surgery. Pt states that US and head was helpful. Treatment Goals Patient/Caregiver Goals To get back to be able to do what I could do before. This includes riding my motorcycle and flying. My leg has to work . PT-OP-C Subjective Start: 07/14/20 07:30 Freq: Status: Active Protocol: Document 09/16/20 09:46 MB (Rec: 09/16/20 10:11 MB [id number]) OP-PT Subjective Patient Comments Patient Comments It was good. when PT asks pt how his trip down to OR was. He had no swelling and wore compression to his knee PT-OP-D Balance Start: 07/14/20 07:30 Freq: Status: Active Protocol: Document 07/14/20 09:50 MB (Rec: 07/14/20 16:07 MB [id number]) OP-PT Balance Assessment Sitting Balance Static Sitting Balance Ability Good Dynamic Sitting Balance Ability Good Sitting Balance Comments UE support for dynamic sitting balance and pt cannot tolerate sit to stands today Standing Balance Static Standing Balance Ability Poor Dynamic Standing Balance Ability Poor Standing Balance Comments Pt uses SPC or reaches for mat for standing Carranza Fall Scale Copyright Permission PT-OP-G Mobility & Gait Start: 07/14/20 07:30 Freq: Status: Active Protocol: Document 07/14/20 09:50 MB (Rec: 07/14/20 16:07 MB [id number]) OP Gait Assessment Gait Gait Assistance Required: Independent Distance (Feet) 50 Assistive Devices Assistive Device Straight Cane Orthotic/Prosthetic Devices or Brace: No Gait Deviations General Gait Pattern Antalgic,Decreased Stride Length,Decreased Feet Clearance,Flexed Trunk,Lateral Trunk Lean,Step-to Gait Factors Limiting Gait Function Factors Limiting Gait Function Decreased Strength,Limited Range of Motion,Pain,Poor Balance,Poor Safety Awareness Comments Gait Comments Pt arrives using SPC in right hand and when PT suggests that he try in his left hand in order to unweight right LE, he states, I'm not going to do that. Pt does agree to try this after assessment. His gait is less antalgic with SPC in left hand. PT-OP-K Range of Motion Start: 07/14/20 07:30 Freq: Status: Active Protocol: Document 09/08/20 09:52 SP (Rec: 09/08/20 11:43 SP [id number]) Knee Goniometric Range of Motion Knee Right Knee ROM WFL No Patient Position Supine Flexion Active (degrees) 115 Flexion Passive (degrees) 112 Extension Active (degrees) 4 Extension Passive (degrees) 8 Comments R knee ext at rest 8 (foot propped on cushion) PT-OP-M Strength Start: 07/14/20 07:30 Freq: Status: Active Protocol: Document 07/14/20 09:50 MB (Rec: 07/14/20 16:07 MB [id number]) Hip Strength Hip Manual Muscle Testing Right Comments Pt states that he does not want PT to MMT his right LE today d/t fear of increasing pain in his right leg Left Flexion (L2) 5 Normal Extension (S1) 4 Good Comments Pt supine Knee Strength Knee Manual Muscle Testing Right Comments Pt states that he does not want PT to MMT his right LE today d/t fear of increasing pain in his right leg Left Flexion (S2) 5 Normal Extension (L3) 5 Normal Ankle/Foot Strength Ankle and Foot Manual Muscle Testing Left Dorsiflexion (L4) 5 Normal Right Comments Pt states that he does not want PT to MMT his right LE today d/t fear of increasing pain in his right leg Toe Strength Toe Manual Muscle Testing Left Great Toe Extension 5 Normal Right Great Toe Comments Pt states that he does not want PT to MMT his right LE today d/t fear of increasing pain in his right leg PT-OP-Q Treatments Start: 07/14/20 07:30 Freq: Status: Active Protocol: Document 09/16/20 09:46 MB (Rec: 09/16/20 10:11 MB [id number]) Cardio Equipment Bicycle (Upright) Duration (Minutes) 10 Resistance 16 Seat Position 7 Therapeutic Exercises Supine Exercises Abdominal drawing in Comments Perform before bridge Kade stretch Comments Con't at home Bridging with band around knees Comments Con't at home, pt reports no pain with band Heel slides Comments Perform as needed at home SLR Comments Con't at home Sitting Exercises LAQs Comments Con't at home Rolling pin Comments Con't home, performed on right leg, see saw motion Standing Exercises Wall squat Comments Perform slowing, 5 reps slowly , then added level 1 band, 5 reps Manual Therapy Treatment Other Other Manual Treatments Again today, MWM with patellar lift right leg with pt performing active HS, STM right vastus lateralis and pt performing HS. CFM over scar PT-OP-R Modalities Start: 07/14/20 07:30 Freq: Status: Active Protocol: Document 08/12/20 11:18 LRN (Rec: 08/12/20 12:15 LRN [id number]) Hot Pack/Cold Pack Treatment Cold Pack Location Cryocuff Patient Position Supine Treatment Duration (minutes) 10 PT-OP-T Assessment and Plan Start: 07/14/20 07:30 Freq: Status: Active Protocol: Document 09/16/20 09:46 MB (Rec: 09/16/20 10:11 MB [id number]) Physical Therapy Assessment Rehab Potential Rehabilitation Potential Good Evaluation Complexity Number of Personal Factors/Comorbidities 1-2 Number of Body Systems Impaired 1-2 Clinical Presentation at Evaluation Stable Impairments Impairments Activity Tolerance,Balance, Edema,Functional Mobility,Gait ,Integument,Pain,Posture,ROM, Sensation,Soft Tissue Mobility ,Strength Goals Six Director Medical Safety Goal (LTG) Pt will be able to slide right heel up to above left knee in sitting to allow better ease of donning socks and to get on motorcycle by 10/19/2020. 08/18/2020: In hook lying, active left hip ER is 48 deg and active right hip ER is 46 deg LTG Duration 8 weeks 6 Director Medical Safety Goal (LTG) Pt will perform progressive HEP with I to improve ROM, flexibility, gait and strength by 10/19/2020. 08/18/2020: Pt is performing initial HEP exercises LTG Duration 8 weeks 5 Director Medical Safety Goal (LTG) Pt will gait train at least 1600 feet in 6 minutes without AD to improve community ambulation by 10/19/2020. 08/18/2020: Pt gait trains 1463 feet in 6 minutes LTG Duration 8 weeks Four Director Medical Safety Goal (LTG) Pt will present with an improved LEF score to reflect no more than 20% impairment to reflect improved functional mobility by 10/19/2020. 08/18/2020: LEF score reflects 33.75% impairment LTG Duration 8 weeks Three Longterm Goal (LTG) Pt will present with improved right knee AROM from 0-120 deg to improve transfers by 2020. 08/18/2020: 3-116 deg right knee AROM in supine today LTG Duration 8 weeks One Director Medical Safety Goal (LTG) Pt will perform 12 reps sit to stand without UE support in 30 sec to improve functional strength by 10/19/2020. 08/18/2020: Pt performs 7 reps sit to stand without UE support and pt reports mild tightness in the front of both knees LTG Duration 8 weeks Assessment Summary Assessment Reviewed and revised HEP today , re-ed pt on rolling pin with see saw motion and added wall slide with band around knees. Manual therapy to improve fascial mobility. Progress standing exercises next treatment date. Physical Therapy Plan Frequency and Duration Frequency of Treatment 2x/Week Duration of Treatment 8 weeks Plan of Care Start Date 08/18/20 Plan of Care End Date 10/20/20 Therapeutic Interventions Therapeutic Interventions Balance Training,Canalithic Repositioning,Gait Training, Home Exercise Program,Joint Mobilizations,Manual Therapy, Neuromuscular Re-education, Patient/Caregiver Education, Self-Care/Home Management, Sensory Integration,Soft Tissue Mobilization,Taping, Therapeutic Activities, Therapeutic Exercises Next Visit Focus/Plan Next Note Type Treatment Note Next Visit Plan Progress strengthening with heel raises, hip extension and abduction, some parts of trauma release exercises for leg strengthening and flexibility
--- NOTE | 2020-09-19 15:17 | PT.OTN ---
Current Diagnoses Unilateral primary osteoarthritis, right knee (09/19/20) Physical Therapy Treatment Note PT-OP-A Visit Information Start: 07/14/20 07:30 Freq: Status: Active Protocol: Document 09/19/20 14:32 MB (Rec: 09/19/20 15:01 MB [id number]) Out-Patient Physical Therapy Visit Information Visit Information Visit Type Treatment Note Visit Start Time 14:32 Visit Stop Time 15:15 Total Visit Minutes 43 Visit Number 18 PT-OP-B Current Condition Start: 07/14/20 07:30 Freq: Status: Active Protocol: Document 07/14/20 09:50 MB (Rec: 07/14/20 10:07 MB [id number]) Current Condition History of Current Condition Onset Date 07/08/2020 Current Complaints Right leg swelling is stopping me from getting any more movement History of Current Condition R partial total knee surgery, medial side on 07/08/2020. Pt reports he had PT before surgery and had to stop. Pt states that in the winter 2019 , he hurt his knee when shoveling show after it was put in front of his driveway by the [employer]. Pt carries straight cane on the right side and is not open to carrying the cane in his left hand. He has a lot of pain in his right knee on the front, side and back of knee. He rates pain up to 5/10. He is icing 6x/day. He spends most of the day lying on his back with leg up on coffee table. He lives alone, he has a single story home, w/c accessibility. He has a rollator that he uses at home when he needs it. This is his first time away from home. He got a ride to PT. 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 He is concerned about how the process has been going as far as surgical visits and follow- up. Pt has not been performing many exercises since surgery d /t pain. He has a recumbent bike and has not been able to do it. Pt is taking pain medication that is making him sleep a lot and have trouble thinking like he would like to . Prior Treatments and Tests PT before surgery. Pt states that US and head was helpful. Treatment Goals Patient/Caregiver Goals To get back to be able to do what I could do before. This includes riding my motorcycle and flying. My leg has to work . PT-OP-C Subjective Start: 07/14/20 07:30 Freq: Status: Active Protocol: Document 09/19/20 14:32 MB (Rec: 09/19/20 15:01 MB [id number]) OP-PT Subjective Patient Comments Patient Comments It was a little sore. Pt had a little soreness after last PT treatment but feels better overall after treatment PT-OP-D Balance Start: 07/14/20 07:30 Freq: Status: Active Protocol: Document 07/14/20 09:50 MB (Rec: 07/14/20 16:07 MB [id number]) OP-PT Balance Assessment Sitting Balance Static Sitting Balance Ability Good Dynamic Sitting Balance Ability Good Sitting Balance Comments UE support for dynamic sitting balance and pt cannot tolerate sit to stands today Standing Balance Static Standing Balance Ability Poor Dynamic Standing Balance Ability Poor Standing Balance Comments Pt uses SPC or reaches for mat for standing Carranza Fall Scale Copyright Permission PT-OP-G Mobility & Gait Start: 07/14/20 07:30 Freq: Status: Active Protocol: Document 07/14/20 09:50 MB (Rec: 07/14/20 16:07 MB [id number]) OP Gait Assessment Gait Gait Assistance Required: Independent Distance (Feet) 50 Assistive Devices Assistive Device Straight Cane Orthotic/Prosthetic Devices or Brace: No Gait Deviations General Gait Pattern Antalgic,Decreased Stride Length,Decreased Feet Clearance,Flexed Trunk,Lateral Trunk Lean,Step-to Gait Factors Limiting Gait Function Factors Limiting Gait Function Decreased Strength,Limited Range of Motion,Pain,Poor Balance,Poor Safety Awareness Comments Gait Comments Pt arrives using SPC in right hand and when PT suggests that he try in his left hand in order to unweight right LE, he states, I'm not going to do that. Pt does agree to try this after assessment. His gait is less antalgic with SPC in left hand. PT-OP-K Range of Motion Start: 07/14/20 07:30 Freq: Status: Active Protocol: Document 09/08/20 09:52 SP (Rec: 09/08/20 11:43 SP [id number]) Knee Goniometric Range of Motion Knee Right Knee ROM WFL No Patient Position Supine Flexion Active (degrees) 115 Flexion Passive (degrees) 112 Extension Active (degrees) 4 Extension Passive (degrees) 8 Comments R knee ext at rest 8 (foot propped on cushion) PT-OP-M Strength Start: 07/14/20 07:30 Freq: Status: Active Protocol: Document 07/14/20 09:50 MB (Rec: 07/14/20 16:07 MB [id number]) Hip Strength Hip Manual Muscle Testing Right Comments Pt states that he does not want PT to MMT his right LE today d/t fear of increasing pain in his right leg Left Flexion (L2) 5 Normal Extension (S1) 4 Good Comments Pt supine Knee Strength Knee Manual Muscle Testing Right Comments Pt states that he does not want PT to MMT his right LE today d/t fear of increasing pain in his right leg Left Flexion (S2) 5 Normal Extension (L3) 5 Normal Ankle/Foot Strength Ankle and Foot Manual Muscle Testing Left Dorsiflexion (L4) 5 Normal Right Comments Pt states that he does not want PT to MMT his right LE today d/t fear of increasing pain in his right leg Toe Strength Toe Manual Muscle Testing Left Great Toe Extension 5 Normal Right Great Toe Comments Pt states that he does not want PT to MMT his right LE today d/t fear of increasing pain in his right leg PT-OP-Q Treatments Start: 07/14/20 07:30 Freq: Status: Active Protocol: Document 09/19/20 14:32 MB (Rec: 09/19/20 15:01 MB [id number]) Cardio Equipment Bicycle (Upright) Duration (Minutes) 15 Resistance 17 Seat Position 8 Other With and without medial knee KT right LE Manual Therapy Treatment Other Other Manual Treatments MWM with patellar lift right leg with pt performing active HS, STM right vastus lateralis and pt performing HS. CFM over scar, STM right hip adductors at distal attachment and patella con't not to move much PT-OP-R Modalities Start: 07/14/20 07:30 Freq: Status: Active Protocol: Document 08/12/20 11:18 LRN (Rec: 08/12/20 12:15 LRN [id number]) Hot Pack/Cold Pack Treatment Cold Pack Location Cryocuff Patient Position Supine Treatment Duration (minutes) 10 PT-OP-T Assessment and Plan Start: 07/14/20 07:30 Freq: Status: Active Protocol: Document 09/19/20 14:32 MB (Rec: 09/19/20 15:01 MB [id number]) Physical Therapy Assessment Rehab Potential Rehabilitation Potential Good Evaluation Complexity Number of Personal Factors/Comorbidities 1-2 Number of Body Systems Impaired 1-2 Clinical Presentation at Evaluation Stable Impairments Impairments Activity Tolerance,Balance, Edema,Functional Mobility,Gait ,Integument,Pain,Posture,ROM, Sensation,Soft Tissue Mobility ,Strength Goals Six [facility] Goal (LTG) Pt will be able to slide right heel up to above left knee in sitting to allow better ease of donning socks and to get on motorcycle by 10/19/2020. 08/18/2020: In hook lying, active left hip ER is 48 deg and active right hip ER is 46 deg LTG Duration 8 weeks 6 [facility]iary Goal (LTG) Pt will perform progressive HEP with I to improve ROM, flexibility, gait and strength by 10/19/2020. 09/19/20: Pt is performing progressive HEP: As needed: quad rolling; every other day: LAQ with band, wall squat with band, hamstring stretch with yoga belt, katarzyna stretch , bridge with band and bridge with clam LTG Duration 8 weeks 5 [facility]iary Goal (LTG) Pt will gait train at least 1600 feet in 6 minutes without AD to improve community ambulation by 10/19/2020. 08/18/2020: Pt gait trains 1463 feet in 6 minutes LTG Duration 8 weeks Four [employer] Goal (LTG) Pt will present with an improved LEF score to reflect no more than 20% impairment to reflect improved functional mobility by 10/19/2020. 08/18/2020: LEF score reflects 33.75% impairment LTG Duration 8 weeks Three Cost Recorder Goal (LTG) Pt will present with improved right knee AROM from 0-120 deg to improve transfers by 2020. 08/18/2020: 3-116 deg right knee AROM in supine today LTG Duration 8 weeks One [facility] Goal (LTG) Pt will perform 12 reps sit to stand without UE support in 30 sec to improve functional strength by 10/19/2020. 08/18/2020: Pt performs 7 reps sit to stand without UE support and pt reports mild tightness in the front of both knees LTG Duration 8 weeks Assessment Summary Assessment Pt has a clicking right knee that has started with stationary biking and PT can palpate this with knee flexion and extension on stationary bike today. PT tries taping medial knee with KT and it does not change clicking. Pt has a recumbent bike and he does not like the PT gym stationary bike higher. This angle may cause more stress on patellofemoral alignment. He con't to have sensitivity at scar area. Con't hip strengthening, balance, manual work. Physical Therapy Plan Frequency and Duration Frequency of Treatment 2x/Week Duration of Treatment 8 weeks Plan of Care Start Date 08/18/20 Plan of Care End Date 10/20/20 Therapeutic Interventions Therapeutic Interventions Balance Training,Canalithic Repositioning,Gait Training, Home Exercise Program,Joint Mobilizations,Manual Therapy, Neuromuscular Re-education, Patient/Caregiver Education, Self-Care/Home Management, Sensory Integration,Soft Tissue Mobilization,Taping, Therapeutic Activities, Therapeutic Exercises Next Visit Focus/Plan Next Note Type Treatment Note Next Visit Plan As before: Progress strengthening with heel raises , hip extension and abduction, some parts of trauma release exercises for leg strengthening and flexibility
--- NOTE | 2020-09-23 11:31 | PT.OTN ---
Current Diagnoses Unilateral primary osteoarthritis, right knee (09/23/20) Physical Therapy Treatment Note PT-OP-A Visit Information Start: 07/14/20 07:30 Freq: Status: Active Protocol: Document 09/23/20 09:47 MB (Rec: 09/23/20 10:20 MB [id number]) Out-Patient Physical Therapy Visit Information Visit Information Visit Type Progress Note Visit Start Time 09:47 Visit Stop Time 10:30 Total Visit Minutes 43 Visit Number 19 PT-OP-B Current Condition Start: 07/14/20 07:30 Freq: Status: Active Protocol: Document 07/14/20 09:50 MB (Rec: 07/14/20 10:07 MB [id number]) Current Condition History of Current Condition Onset Date 07/08/2020 Current Complaints Right leg swelling is stopping me from getting any more movement History of Current Condition R partial total knee surgery, medial side on 07/08/2020. Pt reports he had PT before surgery and had to stop. Pt states that in the winter 2019 , he hurt his knee when shoveling show after it was put in front of his driveway by the [employer]. Pt carries straight cane on the right side and is not open to carrying the cane in his left hand. He has a lot of pain in his right knee on the front, side and back of knee. He rates pain up to 5/10. He is icing 6x/day. He spends most of the day lying on his back with leg up on coffee table. He lives alone, he has a single story home, w/c accessibility. He has a rollator that he uses at home when he needs it. This is his first time away from home. He got a ride to PT. 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 He is concerned about how the process has been going as far as surgical visits and follow- up. Pt has not been performing many exercises since surgery d /t pain. He has a recumbent bike and has not been able to do it. Pt is taking pain medication that is making him sleep a lot and have trouble thinking like he would like to . Prior Treatments and Tests PT before surgery. Pt states that US and head was helpful. Treatment Goals Patient/Caregiver Goals To get back to be able to do what I could do before. This includes riding my motorcycle and flying. My leg has to work . PT-OP-C Subjective Start: 07/14/20 07:30 Freq: Status: Active Protocol: Document 09/23/20 09:47 MB (Rec: 09/23/20 10:20 MB [id number]) OP-PT Subjective Patient Comments Patient Comments Pt states that he is feeling okay. Patient Reported Progress Improving Patient Questionnaires Lower Extremity Functional Scale LEFS Score 60 LEFS Impairment 20 to 39% Impaired (Score 48- 62) PT-OP-D Balance Start: 07/14/20 07:30 Freq: Status: Active Protocol: Document 07/14/20 09:50 MB (Rec: 07/14/20 16:07 MB [id number]) OP-PT Balance Assessment Sitting Balance Static Sitting Balance Ability Good Dynamic Sitting Balance Ability Good Sitting Balance Comments UE support for dynamic sitting balance and pt cannot tolerate sit to stands today Standing Balance Static Standing Balance Ability Poor Dynamic Standing Balance Ability Poor Standing Balance Comments Pt uses SPC or reaches for mat for standing Carranza Fall Scale Copyright Permission PT-OP-G Mobility & Gait Start: 07/14/20 07:30 Freq: Status: Active Protocol: Document 07/14/20 09:50 MB (Rec: 07/14/20 16:07 MB [id number]) OP Gait Assessment Gait Gait Assistance Required: Independent Distance (Feet) 50 Assistive Devices Assistive Device Straight Cane Orthotic/Prosthetic Devices or Brace: No Gait Deviations General Gait Pattern Antalgic,Decreased Stride Length,Decreased Feet Clearance,Flexed Trunk,Lateral Trunk Lean,Step-to Gait Factors Limiting Gait Function Factors Limiting Gait Function Decreased Strength,Limited Range of Motion,Pain,Poor Balance,Poor Safety Awareness Comments Gait Comments Pt arrives using SPC in right hand and when PT suggests that he try in his left hand in order to unweight right LE, he states, I'm not going to do that. Pt does agree to try this after assessment. His gait is less antalgic with SPC in left hand. PT-OP-K Range of Motion Start: 07/14/20 07:30 Freq: Status: Active Protocol: Document 09/08/20 09:52 SP (Rec: 09/08/20 11:43 SP [id number]) Knee Goniometric Range of Motion Knee Right Knee ROM WFL No Patient Position Supine Flexion Active (degrees) 115 Flexion Passive (degrees) 112 Extension Active (degrees) 4 Extension Passive (degrees) 8 Comments R knee ext at rest 8 (foot propped on cushion) PT-OP-M Strength Start: 07/14/20 07:30 Freq: Status: Active Protocol: Document 07/14/20 09:50 MB (Rec: 07/14/20 16:07 MB [id number]) Hip Strength Hip Manual Muscle Testing Right Comments Pt states that he does not want PT to MMT his right LE today d/t fear of increasing pain in his right leg Left Flexion (L2) 5 Normal Extension (S1) 4 Good Comments Pt supine Knee Strength Knee Manual Muscle Testing Right Comments Pt states that he does not want PT to MMT his right LE today d/t fear of increasing pain in his right leg Left Flexion (S2) 5 Normal Extension (L3) 5 Normal Ankle/Foot Strength Ankle and Foot Manual Muscle Testing Left Dorsiflexion (L4) 5 Normal Right Comments Pt states that he does not want PT to MMT his right LE today d/t fear of increasing pain in his right leg Toe Strength Toe Manual Muscle Testing Left Great Toe Extension 5 Normal Right Great Toe Comments Pt states that he does not want PT to MMT his right LE today d/t fear of increasing pain in his right leg PT-OP-Q Treatments Start: 07/14/20 07:30 Freq: Status: Active Protocol: Document 09/23/20 09:47 MB (Rec: 09/23/20 10:20 MB [id number]) Cardio Equipment Bicycle (Upright) Duration (Minutes) 17 Resistance 17 Seat Position 7 Therapeutic Exercises Supine Exercises Heel slides Side right Comments Performed today during treatment I and with PT assist with manual work Sitting Exercises Sit to stands Comments 10 reps in 30 sec without UE support today Gait Training Gait Activity 6MWT Comments 1478 feet in 6 minutes today. Gait throughout PT with improved right knee flexion and heel strike, better monica Manual Therapy Treatment Other Other Manual Treatments STM right vastus lateralis and pt performing HS. CFM over scar, STM right hip adductors at distal attachment and patella con't not to move much PT-OP-R Modalities Start: 07/14/20 07:30 Freq: Status: Active Protocol: Document 08/12/20 11:18 LRN (Rec: 08/12/20 12:15 LRN [id number]) Hot Pack/Cold Pack Treatment Cold Pack Location Cryocuff Patient Position Supine Treatment Duration (minutes) 10 PT-OP-T Assessment and Plan Start: 07/14/20 07:30 Freq: Status: Active Protocol: Document 09/23/20 09:47 MB (Rec: 09/23/20 10:20 MB [id number]) Physical Therapy Assessment Rehab Potential Rehabilitation Potential Good Evaluation Complexity Number of Personal Factors/Comorbidities 1-2 Number of Body Systems Impaired 1-2 Clinical Presentation at Evaluation Stable Impairments Impairments Activity Tolerance,Balance, Edema,Functional Mobility,Gait ,Integument,Pain,Posture,ROM, Sensation,Soft Tissue Mobility ,Strength Goals Six [employer] Goal (LTG) Pt will be able to slide right heel up to above left knee in sitting to allow better ease of donning socks and to get on motorcycle by 10/19/2020. 09/23/20: Pt is having a much easier time donning sock LTG Duration Met 6 [employer] Goal (LTG) Pt will perform progressive HEP with I to improve ROM, flexibility, gait and strength by 11/21/2020. 09/23/20: Pt is performing progressive HEP: As needed: quad rolling; every other day: LAQ with band, wall squat with band, hamstring stretch with yoga belt, katarzyna stretch , bridge with band and bridge with clam LTG Duration 8 weeks 5 [employer] Goal (LTG) Pt will gait train at least 1600 feet in 6 minutes without AD to improve community ambulation by 11/21/2020. 09/23/20: Pt gait trains 1478 feet in 6 minutes LTG Duration 8 weeks Four [facility] Goal (LTG) Pt will present with an improved LEF score to reflect no more than 20% impairment to reflect improved functional mobility by 11/21/2020. 09/23/20: LEF score reflects 25 % impairment LTG Duration 8 weeks Three [facility] Goal (LTG) Pt will present with improved right knee AROM from 0-120 deg to improve transfers by 2020. 09/23/20: 1-115 deg right knee AROM in supine today, pt with hip flexor tension LTG Duration 8 weeks One [facility] Goal (LTG) Pt will perform 12 reps sit to stand without UE support in 30 sec to improve functional strength by 11/21/2020. 09/23/20: Pt performs 10 reps in 30 sec LTG Duration 8 weeks Progress Towards Goals Progress Towards Goals Progressing Toward Goals Assessment Summary Assessment Clicking is gone in right knee today he reports a little egg swelling over medial patella right knee. Pt has progressed towards all PT goals since starting PT. These include ROM, gait, sit to stands and performance of progressive HEP. He will benefit from ongoing PT to further progress range, gait, balance and strength. Barriers to PT include right knee scar does not move much distally and patella is also less mobile. Physical Therapy Plan Frequency and Duration Frequency of Treatment 2x/Week Duration of Treatment 8 weeks Plan of Care Start Date 09/23/20 Plan of Care End Date 11/21/20 Therapeutic Interventions Therapeutic Interventions Balance Training,Canalithic Repositioning,Gait Training, Home Exercise Program,Joint Mobilizations,Manual Therapy, Neuromuscular Re-education, Patient/Caregiver Education, Self-Care/Home Management, Sensory Integration,Soft Tissue Mobilization,Taping, Therapeutic Activities, Therapeutic Exercises Next Visit Focus/Plan Next Note Type Treatment Note Next Visit Plan Progress strengthening with heel raises, hip extension and abduction, some parts of trauma release exercises for leg strengthening and flexibility
--- NOTE | 2020-09-23 11:31 | PT.OPPOC ---
Physical, Occupational & Speech Therapy At [facility] Current Diagnoses Unilateral primary osteoarthritis, right knee (09/23/20) Visit Care Team Role Provider Type Ryan Bryan MD Family Provider Physician Primary Care Provider Specialty: Family Practice Address: [address] [place] [address], [id number] Email: [email or web address] Stevie Leigh MD Attending Provider Physician Referring Provider Specialty: Orthopedic Surgery Address: [address] [place] [address], [id number] Email: [email or web address] Plan Of Care PT-OP-T Assessment and Plan Start: 07/14/20 07:30 Freq: Status: Active Protocol: Document 09/23/20 09:47 MB (Rec: 09/23/20 10:20 MB [id number]) Physical Therapy Assessment Rehab Potential Rehabilitation Potential Good Evaluation Complexity Number of Personal Factors/Comorbidities 1-2 Number of Body Systems Impaired 1-2 Clinical Presentation at Evaluation Stable Impairments Impairments Activity Tolerance,Balance, Edema,Functional Mobility,Gait ,Integument,Pain,Posture,ROM, Sensation,Soft Tissue Mobility ,Strength Goals Six Twisting Press Operator Goal (LTG) Pt will be able to slide right heel up to above left knee in sitting to allow better ease of donning socks and to get on motorcycle by 10/19/2020. 09/23/20: Pt is having a much easier time donning sock LTG Duration Met 6 Twisting Press Operator Goal (LTG) Pt will perform progressive HEP with I to improve ROM, flexibility, gait and strength by 11/21/2020. 09/23/20: Pt is performing progressive HEP: As needed: quad rolling; every other day: LAQ with band, wall squat with band, hamstring stretch with yoga belt, katarzyna stretch , bridge with band and bridge with clam LTG Duration 8 weeks 5 Care Home Goal (LTG) Pt will gait train at least 1600 feet in 6 minutes without AD to improve community ambulation by 11/21/2020. 09/23/20: Pt gait trains 1478 feet in 6 minutes LTG Duration 8 weeks Four Care Home Goal (LTG) Pt will present with an improved LEF score to reflect no more than 20% impairment to reflect improved functional mobility by 11/21/2020. 09/23/20: LEF score reflects 25 % impairment LTG Duration 8 weeks Three Care Home Goal (LTG) Pt will present with improved right knee AROM from 0-120 deg to improve transfers by 2020. 09/23/20: 1-115 deg right knee AROM in supine today, pt with hip flexor tension LTG Duration 8 weeks One Twisting Press Operator Goal (LTG) Pt will perform 12 reps sit to stand without UE support in 30 sec to improve functional strength by 11/21/2020. 09/23/20: Pt performs 10 reps in 30 sec LTG Duration 8 weeks Progress Towards Goals Progress Towards Goals Progressing Toward Goals Assessment Summary Assessment Clicking is gone in right knee today he reports a little egg swelling over medial patella right knee. Pt has progressed towards all PT goals since starting PT. These include ROM, gait, sit to stands and performance of progressive HEP. He will benefit from ongoing PT to further progress range, gait, balance and strength. Barriers to PT include right knee scar does not move much distally and patella is also less mobile. Physical Therapy Plan Frequency and Duration Frequency of Treatment 2x/Week Duration of Treatment 8 weeks Plan of Care Start Date 09/23/20 Plan of Care End Date 11/21/20 Therapeutic Interventions Therapeutic Interventions Balance Training,Canalithic Repositioning,Gait Training, Home Exercise Program,Joint Mobilizations,Manual Therapy, Neuromuscular Re-education, Patient/Caregiver Education, Self-Care/Home Management, Sensory Integration,Soft Tissue Mobilization,Taping, Therapeutic Activities, Therapeutic Exercises Next Visit Focus/Plan Next Note Type Treatment Note Next Visit Plan Progress strengthening with heel raises, hip extension and abduction, some parts of trauma release exercises for leg strengthening and flexibility Plan of Care Dates Plan of Care Start Date 09/23/20 Plan of Care End Date 11/21/20 Electronically Signed by: Linnette Arthur, PT 09/23/20 [id number] Please Sign and Return: I have reviewed this Plan of Care and certify that the skilled therapy services above are required to meet the patient?s needs. Physician Signature Date Printed Name and Credentials Clinical Instructor Signature Printed Name and Credentials
--- NOTE | 2020-09-26 15:18 | PT.OTN ---
Current Diagnoses Unilateral primary osteoarthritis, right knee (09/26/20) Physical Therapy Treatment Note PT-OP-A Visit Information Start: 07/14/20 07:30 Freq: Status: Active Protocol: Document 09/26/20 14:32 MB (Rec: 09/26/20 15:18 MB [id number]) Out-Patient Physical Therapy Visit Information Visit Information Visit Type Treatment Note Visit Start Time 14:32 Visit Stop Time 15:04 Total Visit Minutes 32 Visit Number 20 PT-OP-B Current Condition Start: 07/14/20 07:30 Freq: Status: Active Protocol: Document 07/14/20 09:50 MB (Rec: 07/14/20 10:07 MB [id number]) Current Condition History of Current Condition Onset Date 07/08/2020 Current Complaints Right leg swelling is stopping me from getting any more movement History of Current Condition R partial total knee surgery, medial side on 07/08/2020. Pt reports he had PT before surgery and had to stop. Pt states that in the winter 2019 , he hurt his knee when shoveling show after it was put in front of his driveway by the [employer]. Pt carries straight cane on the right side and is not open to carrying the cane in his left hand. He has a lot of pain in his right knee on the front, side and back of knee. He rates pain up to 5/10. He is icing 6x/day. He spends most of the day lying on his back with leg up on coffee table. He lives alone, he has a single story home, w/c accessibility. He has a rollator that he uses at home when he needs it. This is his first time away from home. He got a ride to PT. 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 He is concerned about how the process has been going as far as surgical visits and follow- up. Pt has not been performing many exercises since surgery d /t pain. He has a recumbent bike and has not been able to do it. Pt is taking pain medication that is making him sleep a lot and have trouble thinking like he would like to . Prior Treatments and Tests PT before surgery. Pt states that US and head was helpful. Treatment Goals Patient/Caregiver Goals To get back to be able to do what I could do before. This includes riding my motorcycle and flying. My leg has to work . PT-OP-C Subjective Start: 07/14/20 07:30 Freq: Status: Active Protocol: Document 09/26/20 14:32 MB (Rec: 09/26/20 15:18 MB [id number]) OP-PT Subjective Patient Comments Patient Comments I think I'm about ready to be done. PT-OP-D Balance Start: 07/14/20 07:30 Freq: Status: Active Protocol: Document 07/14/20 09:50 MB (Rec: 07/14/20 16:07 MB [id number]) OP-PT Balance Assessment Sitting Balance Static Sitting Balance Ability Good Dynamic Sitting Balance Ability Good Sitting Balance Comments UE support for dynamic sitting balance and pt cannot tolerate sit to stands today Standing Balance Static Standing Balance Ability Poor Dynamic Standing Balance Ability Poor Standing Balance Comments Pt uses SPC or reaches for mat for standing Carranza Fall Scale Copyright Permission PT-OP-G Mobility & Gait Start: 07/14/20 07:30 Freq: Status: Active Protocol: Document 07/14/20 09:50 MB (Rec: 07/14/20 16:07 MB [id number]) OP Gait Assessment Gait Gait Assistance Required: Independent Distance (Feet) 50 Assistive Devices Assistive Device Straight Cane Orthotic/Prosthetic Devices or Brace: No Gait Deviations General Gait Pattern Antalgic,Decreased Stride Length,Decreased Feet Clearance,Flexed Trunk,Lateral Trunk Lean,Step-to Gait Factors Limiting Gait Function Factors Limiting Gait Function Decreased Strength,Limited Range of Motion,Pain,Poor Balance,Poor Safety Awareness Comments Gait Comments Pt arrives using SPC in right hand and when PT suggests that he try in his left hand in order to unweight right LE, he states, I'm not going to do that. Pt does agree to try this after assessment. His gait is less antalgic with SPC in left hand. PT-OP-K Range of Motion Start: 07/14/20 07:30 Freq: Status: Active Protocol: Document 09/08/20 09:52 SP (Rec: 09/08/20 11:43 SP [id number]) Knee Goniometric Range of Motion Knee Right Knee ROM WFL No Patient Position Supine Flexion Active (degrees) 115 Flexion Passive (degrees) 112 Extension Active (degrees) 4 Extension Passive (degrees) 8 Comments R knee ext at rest 8 (foot propped on cushion) PT-OP-M Strength Start: 07/14/20 07:30 Freq: Status: Active Protocol: Document 07/14/20 09:50 MB (Rec: 07/14/20 16:07 MB [id number]) Hip Strength Hip Manual Muscle Testing Right Comments Pt states that he does not want PT to MMT his right LE today d/t fear of increasing pain in his right leg Left Flexion (L2) 5 Normal Extension (S1) 4 Good Comments Pt supine Knee Strength Knee Manual Muscle Testing Right Comments Pt states that he does not want PT to MMT his right LE today d/t fear of increasing pain in his right leg Left Flexion (S2) 5 Normal Extension (L3) 5 Normal Ankle/Foot Strength Ankle and Foot Manual Muscle Testing Left Dorsiflexion (L4) 5 Normal Right Comments Pt states that he does not want PT to MMT his right LE today d/t fear of increasing pain in his right leg Toe Strength Toe Manual Muscle Testing Left Great Toe Extension 5 Normal Right Great Toe Comments Pt states that he does not want PT to MMT his right LE today d/t fear of increasing pain in his right leg PT-OP-Q Treatments Start: 07/14/20 07:30 Freq: Status: Active Protocol: Document 09/26/20 14:32 MB (Rec: 09/26/20 15:18 MB [id number]) Therapeutic Exercises Standing Exercises Revised HEP, added crab walking, backward walking with band and Tandem in corner Comments Reviewed HEP today and added these 3 new exercises and pt performs PT-OP-R Modalities Start: 07/14/20 07:30 Freq: Status: Active Protocol: Document 08/12/20 11:18 LRN (Rec: 08/12/20 12:15 LRN [id number]) Hot Pack/Cold Pack Treatment Cold Pack Location Cryocuff Patient Position Supine Treatment Duration (minutes) 10 PT-OP-T Assessment and Plan Start: 07/14/20 07:30 Freq: Status: Active Protocol: Document 09/26/20 14:32 MB (Rec: 09/26/20 15:18 MB [id number]) Physical Therapy Assessment Goals 6 Correction Goal (LTG) Pt will perform progressive HEP with I to improve ROM, flexibility, gait and strength by 11/21/2020. 09/23/20: Pt is performing progressive HEP: As needed: quad rolling; every other day: LAQ with band, wall squat with band, hamstring stretch with yoga belt, katarzyna stretch , bridge with band and bridge with clam LTG Duration 8 weeks 5 City Carrier Goal (LTG) Pt will gait train at least 1600 feet in 6 minutes without AD to improve community ambulation by 11/21/2020. 09/23/20: Pt gait trains 1478 feet in 6 minutes LTG Duration 8 weeks Four Correction Goal (LTG) Pt will present with an improved LEF score to reflect no more than 20% impairment to reflect improved functional mobility by 11/21/2020. 09/23/20: LEF score reflects 25 % impairment LTG Duration 8 weeks Three Correction Goal (LTG) Pt will present with improved right knee AROM from 0-120 deg to improve transfers by 2020. 09/23/20: 1-115 deg right knee AROM in supine today, pt with hip flexor tension LTG Duration 8 weeks One City Carrier Goal (LTG) Pt will perform 12 reps sit to stand without UE support in 30 sec to improve functional strength by 11/21/2020. 09/23/20: Pt performs 10 reps in 30 sec LTG Duration 8 weeks Assessment Summary Assessment Pt states that he is ready to be done with therapy. Goals reassessed last treatment date . He has progressed towards all PT goals. Progressed hip strengthening today as well as Tandem standing. Will d/c PT. Pt to con't with exercises at home. He wants to return to the gym.
== END 2020-09-29 14:04 | disposition home or self-care (01) ==
LOC: PHYS 14:30
PROVIDERS: Family Provider Family Medicine; PCP Family Medicine; Referring Provider Orthopaedic Surgery; Visit Provider Orthopaedic Surgery
DX: M17.11 Unilateral primary osteoarthritis, right knee (principal)
CPT/HCPCS: 97010; 97110; 97116; 97140; 97161

== ENCOUNTER → 2022-05-11 09:05 | Outpatient (CLI) | payer MEDICARE, OTHER, SELFPAY ==
[2022-05-11 10:57] LABS: Prostate Specific Antigen 1.51 ng/mL (0.10-4.00)
== END ==
PROVIDERS: Family Provider Family Medicine; PCP Student in an Organized Health Care Education/Training Program; Referring Provider Urology; Visit Provider Urology
DX: Z12.5 Encounter for screening for malignant neoplasm of prostate (principal)
CPT/HCPCS: 36415; 84153; G0103

== ENCOUNTER → 2022-05-17 10:27 | Outpatient (CLI) | payer MEDICARE, OTHER, SELFPAY ==
[2022-05-17 14:41] LABS: COVID19 -Nasal RAPID Negative (Negative)
== END ==
PROVIDERS: Family Provider Family Medicine; PCP Student in an Organized Health Care Education/Training Program; Visit Provider Surgery
DX: Z01.812 Encounter for preprocedural laboratory examination (principal); Z20.822 Contact with and (suspected) exposure to COVID-19
CPT/HCPCS: 87635; C9803

== ENCOUNTER 2022-05-18 12:36 | Day surgery (SDC) | payer MEDICARE, OTHER, SELFPAY ==
--- NOTE | 2022-05-18 | PATH_ITS ---
[facility] Accession Number: [id number] . 01 Material submitted: . esophagus, E-G Junction - GE JUNCTION BIOPSY . 01 Clinical history: . EGD/COLONOSCOPY ENCOUNTER FOR SCREENING FOR MALIGNANT NEOPLASM BRODERICK'S ESOPHAGUS WITHOUT DYSPLASIA . 01 Diagnosis: Gastroesophageal Junction, Biopsy: Squamous epithelium with no diagnostic abnormality. Intraepithelial eosinophils are not increased. Negative for dysplasia and malignancy. MRV 05/20/2022 0935 Local . 01 Electronically signed: . Alyssia Mendoza MD, Pathologist NPI- [id number] . 01 Gross description: . GE JUNCTION BIOPSY: Received in formalin are 2 fragment(s) of hsu, soft tissue measuring 0.3 x 0.2 x 0.1 cm to 0.2 x 0.1 x 0.1 cm submitted entirely in 1 cassette(s) /CPE 05/19/2022 0914 Local . 01 Pathologist provided ICD-10: Z12.11 . 01 CPT . 921632 Performed at: 01 [facility] [address] [place] [address], [place], [place] [id number] MD Stevie Santos MD Phone: [phone]
[2022-05-18 13:03] VITALS: BP 156/79; PULSE 78; RESP 16; TEMP 36.3; O2SAT 96; BMI 38.0
[2022-05-18] MEDS: LACTATED RINGERS 1,000 ML 200 ML IV (13:23)
--- NOTE | 2022-05-18 14:10 | PM.HP.1 ---
History of Present Illness History of Present Illness Date Patient Seen: 05/18/22 Time Patient Seen: 14:10 Chief complaint: EGD/COLONOSCOPY Narrative: 71-year-old man here for screening esophagoduodenoscopy and colonoscopy. 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 Last EGD was 2018 did not demonstrate Rudolph's at that time. Previous colonoscopy was approximately 6 years ago. No changes in intestinal health no abdominal pain nausea vomiting unintentional weight loss blood per rectum. Patient History Medical History Rudolph's esophagus Impaired glucose regulation Obesity (BMI 30-39.9) Obstructive sleep apnea of adult Peyronie's disease Surgical History Anesthesia Knee joint replacement status Family & Social History Family History Father Cancer Stroke Grandmother Diabetes mellitus Sister Diabetes mellitus Hypertension Mental health problem Mother No problems noted. Grandfather Prostate disease Social History: household members none lives independently Yes caregiver/support person No Tobacco & Substance use: Smoking Status Never smoker alcohol intake frequency other Substance Use Type does not use Meds Home Medications and Allergies Home Medications Medication Instructions Recorded Confirmed Type acetaminophen 650 mg 1,300 mg PO Q8H PRN fever #90 tabs 03/15/18 05/18/22 Rx tablet,extended release Resmed Airsense 10 CPAP #1 ea 02/01/19 09/22/21 History cyanocobalamin (vitamin B-12) 2,500 mg PO DAILY 05/01/19 05/18/22 History melatonin 5 mg PO BEDTIME 05/01/19 05/18/22 History alfuzosin 10 mg tablet,extended 10 mg PO DAILY #90 tabs 07/15/20 05/18/22 Rx release 24 hr aspirin 81 mg PO BID 07/15/20 05/18/22 History omeprazole magnesium 20 mg 20 mg PO DAILY #90 tabs 10/29/20 05/18/22 Rx tablet,delayed release (Prilosec OTC) atorvastatin 10 mg tablet 10 mg PO BEDTIME #90 tabs 11/09/21 05/18/22 Rx Allergies Allergy/AdvReac Type Severity Reaction Status Date / Time Penicillins [PENICILLINS] Allergy Severe ANAPHYLAXSI Verified 05/18/22 12:56 S Exam Vital Signs (past 8 hours): - 05/18/22 13:03 Temperature 97.3 F L Pulse Rate 78 Respiratory Rate 16 Blood Pressure 156/79 H Pulse Oximetry 96 Oxygen Delivery Method Room Air Oxygen Flow Rate 0 Oxygen Delivery Method Room Air Oxygen Flow Rate 0 Narrative Exam Narrative: General adult male alert oriented no acute distress Abdomen soft nontender nondistended Assessment & Plan Assessment & Plan narrative: The patient requires colorectal screening and colonoscopy is recommended. Technical details were discussed. Risks, benefits, alternatives explained. Risks including but not limited to myocardial infarction, aspiration, bleeding, pain, missed lesion, incomplete examination, need for further radiographic studies, colonic perforation, and need for major abdominal surgery were discussed. All questions were answered to their satisfaction, and they are in agreement with this plan. Time Spent With Patient Critical Care time: I spent a total of [] minutes of critical care time on this patient's care today; this time is exclusive of procedural time.
[2022-05-18] MEDS: fentaNYL 100 MCG/2 ML INJ 200 MCG IV (14:36)
[2022-05-18] MEDS: MIDAZOLAM 5 MG/5 ML VIAL 8 MG IV (14:36)
[2022-05-18] MEDS: LIDOCAINE 4% SOLN 50 ML 20 ML TOP (14:36)
--- NOTE | 2022-05-18 14:45 | PM.OP.EC ---
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 The procedure was discussed in detail with the patient. Potential risks complications including infection, bleeding, missed diagnosis, perforation, need for surgery, and were explained. Their questions were answered and informed consent was obtained. Patient placed in left lateral decubitus position. Time out was performed. Procedural sedation was administered with Versed and Fentanyl. A bite block was placed. the scope was inserted into the mouth and advanced through the esophagus and into the stomach. The pylorus was intubated and the duodenum was normal to the 2nd portion. The scope was retroflexed within the stomach and there was no small hiatal hernia. No ulcers, or gastritis. The scope was withdrawn into the esophagus the Z line was seen at 40 cm from the incisions. There was no Rudolph's esophagitis or masses. There was evidence of a prior stricture. Multiple biopsies of the GE junction were performed with forceps. Stomach was desufflated and scope removed. Patient tolerated procedure well. Examination began with a thorough inspection of the perianal area there was no evidence of fissures, fistulae, external hemorrhoids or cutaneous malignancy. The colonoscopy scope was then placed into the anal canal and was advanced to the cecum, which was identified by the ileocecal valve, the appendiceal orifice and the confluence of the taenia. The scope was then slowly withdrawn examining colon thoroughly in all directions, irrigating it of any residual stool. FINDINGS 1. No evidence of Rudolph's esophagus. 2. Evidence of prior Schatzki ring 3. No colonic polyps The patient tolerated the procedure well. They will be discharged once criteria are met. The prep was of good/excellent quality. The withdrawl time was 6 minutes. The sedation time was 22 minutes. Specimen(s): other (GE junction) Complications: none Impression: Normal esophagoduodenoscopy and colonoscopy Post-procedure Recommendations: Reflux diet and EGD in 3 years Disposition: same day surgery
[2022-05-18 14:49] VITALS: BP 134/72; PULSE 78; RESP 12; TEMP 36.9; O2SAT 94
[2022-05-18 14:55] VITALS: BP 112/62; PULSE 78; RESP 12; O2SAT 93
[2022-05-18 15:00] VITALS: BP 127/69; PULSE 74; RESP 14; O2SAT 93
[2022-05-18 15:07] VITALS: BP 114/63; PULSE 82; RESP 16; TEMP 36.7; O2SAT 94
[2022-05-18 15:15] VITALS: BP 121/79; PULSE 79; RESP 20; TEMP 36.7; O2SAT 96
== END 2022-05-18 15:30 | disposition home or self-care (01) ==
PROVIDERS: Family Provider Family Medicine; PCP Student in an Organized Health Care Education/Training Program; Referring Provider Surgery; Visit Provider Surgery
PROC: 0DJ08ZZ Inspection of Upper Intestinal Tract, Via Natural or Artificial Opening Endoscopic (ICD-10-PCS; CPT 43235; principal; 2022-05-18 14:15)
PROC: 0DJD8ZZ Inspection of Lower Intestinal Tract, Via Natural or Artificial Opening Endoscopic (ICD-10-PCS; CPT 45378; 2022-05-18 14:15)
DX: Z12.11 Encounter for screening for malignant neoplasm of colon (principal); Z87.19 Personal history of other diseases of the digestive system
CPT/HCPCS: 43239; G0121; 99152; J2250; J3010

== ENCOUNTER → 2022-11-11 09:50 | Outpatient (CLI) | payer MEDICARE, OTHER, SELFPAY ==
--- NOTE | 2022-11-11 09:54 | DI.RAD.S_ITS ---
PROCEDURE: XR ACUTE ABDOMEN SERIES INDICATIONS: abdominal pain TECHNIQUE: One view chest and two views of the abdomen were acquired. COMPARISON: None. FINDINGS: Surgical changes and devices: None. Chest: Lungs are clear. Heart size is normal. No pleural effusions. No pneumoperitoneum. Abdomen: Bowel gas pattern is normal. Moderately large right colonic fecal load. No suspicious calcifications. Visualized solid organ contours appear normal. Bones: No suspicious bony lesions. IMPRESSION: Moderately large right colonic fecal load. No evidence of acute pulmonary process or abdominal process. Dictated by: Te Nickerson M.D. on 11/11/2022 at 12:46 Approved by: Te Nickerson M.D. on 11/11/2022 at 12:47
[2022-11-11 11:31] LABS: Hematocrit 43.7 % (41-53); Hemoglobin 15.1 g/dL (13.5-17.5); Mean Corpuscular HGB Conc 34.6 % (30-36); Mean Corpuscular Hemoglobin 31.8 PG (26-34); Platelet Count 167 X10^3/uL (150-400); Red Blood Cell Count 4.75 X10^6/uL (4.5-5.9); Red Cell Distribution Width 13.9 % (11.6-14.8); White Blood Cell Count 6.7 X10^3/uL (4.5-11.0)
[2022-11-11 12:32] LABS: Alanine Aminotransferase 26 IU/L (<50); Albumin Globulin Ratio 1.4 (1.0-2.8); Alkaline Phosphatase 61 U/L (38-126); Aspartate Aminotransferase 20 IU/L (17-59); BUN Creatinine Ratio 22.9 (6-22); Bilirubin Total 0.8 mg/dL (0.2-1.3); Blood Urea Nitrogen 19 mg/dL (9-20); Calcium 8.6 mg/dL (8.4-10.2); Carbon Dioxide 28 mmol/L (22-32); Chloride 104 mmol/L (98-107); Estimated Glomerular Filt Rate > 60 mL/min (>60); Globulin 2.8 g/dL (1.7-4.1); Glucose 97 mg/dL (80-110); HEMOLYSIS 15 (0-50); Potassium 4.4 mmol/L (3.4-5.1); Sodium 138 mmol/L (137-145); Total Protein 6.8 g/dL (6.3-8.2)
== END ==
PROVIDERS: Family Provider Family Medicine; PCP Student in an Organized Health Care Education/Training Program; Referring Provider Nurse Practitioner Family; Visit Provider Nurse Practitioner Family
DX: R10.11 Right upper quadrant pain (principal)
CPT/HCPCS: 36415; 74022; 80053; 83690; 85027

== ENCOUNTER → 2022-11-11 17:39 | Outpatient (CLI) | payer MEDICARE, OTHER, SELFPAY ==
[2022-11-11 18:13] LABS: Lipase 25 U/L (23-300)
== END ==
PROVIDERS: Family Provider Family Medicine; PCP Student in an Organized Health Care Education/Training Program; Visit Provider Nurse Practitioner Family
DX: R10.11 Right upper quadrant pain (principal)
CPT/HCPCS: 83690

== ENCOUNTER → 2023-07-14 07:17 | Outpatient (CLI) | payer MEDICARE, OTHER, SELFPAY ==
[2023-07-14 09:12] LABS: BUN Creatinine Ratio 20.8 (6-22); Blood Urea Nitrogen 16 mg/dL (9-20); Calcium 9.5 mg/dL (8.4-10.2); Carbon Dioxide 24 mmol/L (22-32); Chloride 105 mmol/L (98-107); Cholesterol 118 mg/dL (140-199); Estimated Glomerular Filt Rate > 60 mL/min (>60); Glucose 102 mg/dL (80-110); HDL Cholesterol 38 mg/dL (40-60); HEMOLYSIS < 15 (0-50); LDL Cholesterol Calculated 66 mg/dL (<100); Potassium 4.3 mmol/L (3.4-5.1); Sodium 135 mmol/L (137-145); Triglycerides 71 mg/dL (35-150)
[2023-07-14 09:22] LABS: Hemoglobin A1C% w Est Avg Glu 6.1 % (4.0-6.0)
== END ==
PROVIDERS: Family Provider Family Medicine; PCP Family Medicine; Referring Provider Family Medicine; Visit Provider Family Medicine
DX: Z00.00 Encounter for general adult medical examination without abnormal findings (principal); M79.89 Other specified soft tissue disorders; E78.2 Mixed hyperlipidemia
CPT/HCPCS: 36415; 80048; 80061; 83036

== ENCOUNTER → 2024-07-17 07:51 | Outpatient (CLI) | payer MEDICARE, OTHER, SELFPAY ==
[2024-07-17 08:37] LABS: Hemoglobin A1C% w Est Avg Glu 6.2 % (4.0-6.0)
[2024-07-17 08:59] LABS: Alanine Aminotransferase 30 IU/L (<50); Albumin 4.1 g/dL (3.5-5.0); Albumin Globulin Ratio 1.6 (1.0-2.8); Alkaline Phosphatase 63 U/L (38-126); Aspartate Aminotransferase 23 IU/L (17-59); BUN Creatinine Ratio 27.5 (6-22); Bilirubin Total 0.7 mg/dL (0.2-1.3); Blood Urea Nitrogen 19 mg/dL (9-20); Calcium 9.6 mg/dL (8.4-10.2); Carbon Dioxide 21 mmol/L (22-32); Chloride 107 mmol/L (98-107); Cholesterol 167 mg/dL (140-199); Estimated Glomerular Filt Rate > 60 mL/min (>60); Globulin 2.6 g/dL (1.7-4.1); Glucose 170 mg/dL (80-110); HDL Cholesterol 54 mg/dL (40-60); HEMOLYSIS < 15 (0-50); LDL Cholesterol Calculated 95 mg/dL (<100); Potassium 4.1 mmol/L (3.4-5.1); Sodium 137 mmol/L (137-145); Total Protein 6.7 g/dL (6.3-8.2); Triglycerides 88 mg/dL (35-150)
[2024-07-17 09:50] LABS: Hep C Virus Ab w/Reflex Quant NEGATIVE s/c (NEGATIVE)
== END ==
PROVIDERS: Family Provider Family Medicine; PCP Family Medicine; Referring Provider Family Medicine; Visit Provider Family Medicine
DX: Z00.00 Encounter for general adult medical examination without abnormal findings (principal); E66.01 Morbid (severe) obesity due to excess calories; E78.2 Mixed hyperlipidemia; Z11.59 Encounter for screening for other viral diseases; R73.01 Impaired fasting glucose; R03.0 Elevated blood-pressure reading, without diagnosis of hypertension
CPT/HCPCS: 36415; 80053; 80061; 83036; 86803

== ENCOUNTER 2024-08-23 11:51 | Day surgery (SDC) | payer MEDICARE, OTHER, SELFPAY ==
--- NOTE | 2024-08-23 | PATH_ITS ---
[facility] Accession Number: [id number] No. of containers..02 Tissue . 01 Material submitted: . PART A: stomach - ANTRUM PART B: esophagus, E-G Junction - GE JUNCTION . 01 Diagnosis: A. GASTRIC ANTRUM, BIOPSY: Gastric antral mucosa with no significant diagnostic abnormality. Negative for helicobacter organisms on H/E sections. Negative for intestinal metaplasia, dysplasia, or malignancy. - B. GASTROESOPHAGEAL JUNCTION, BIOPSY: Gastric mucosa with reactive changes, negative for intestinal metaplasia. Detached squamous epithelium with focal erosion and exudate, negative for HSV and CMV by immunostains, and negative for fungal organisms by negative ABPAS special stain. Negative for increased intraepithelial eosinophils, dysplasia, or malignancy. [facility] 08/27/2024 1310 Local . 01 Electronically signed: . Joe Phillips MD, Pathologist NPI- [id number] . 01 Gross description: . Part A: ANTRUM: Received in formalin are 2 fragment(s) of hsu, soft tissue measuring 0.3 x 0.2 x 0.2 cm to 0.4 x 0.2 x 0.2 cm submitted entirely in 1 cassette(s) Part B: GE JUNCTION: Received in formalin are multiple fragment(s) of hsu, soft tissue measuring 0.1 x 0.1 x 0.1 cm to 0.3 x 0.3 x 0.2 cm submitted entirely in 1 cassette(s) /KAMAR 08/24/2024 0024 Local . 01 Pathologist provided ICD-10: K22.70 . 01 CPT . 476190, 017196, 994238, [id number], [id number] Specimen Comment: A courtesy copy of this report has been sent to [phone] Performed at: 01 [facility] [address], [place], [place] [id number] MD Stevie Santos MD Phone: [phone]
[2024-08-23 12:17] VITALS: BP 164/81; PULSE 77; RESP 14; TEMP 36.6; O2SAT 96
[2024-08-23] MEDS: LACTATED RINGERS 1,000 ML 42 ML IV (12:25)
--- NOTE | 2024-08-23 13:03 | PM.HP.1 ---
History of Present Illness History of Present Illness Date Patient Seen: 08/23/24 Time Patient Seen: 13:03 Chief complaint: EGD w/poss bx Narrative: 74-year-old white male with previous esophageal dilations. He is recently started seeing a good tied for diabetes and weight loss and this has made his symptoms of reflux and dysphagia worse. [facility] Medical History IFG (impaired fasting glucose) Encounter for subsequent annual wellness visit (AWV) in Medicare patient Morbid obesity Obesity (BMI 30-39.9) Peyronie's disease Impaired glucose regulation Rudolph's esophagus Obstructive sleep apnea of adult Surgical History Knee joint replacement status Anesthesia Family History Father Cancer Stroke Grandmother Diabetes mellitus Sister Diabetes mellitus Hypertension Mental health problem Mother No problems noted. Grandfather Prostate disease Social History household members: none lives independently: Yes caregiver/support person: No leisure activities: other (motorcycle rider; attends [employer] annually) Smoking Status: Never smoker alcohol intake: never Meds Home Medications and Allergies Home Medications Medication Instructions Recorded Confirmed Type acetaminophen 650 mg 1,300 mg (2 x 650 mg) PO Q8H PRN 03/15/18 07/16/24 Rx tablet,extended release fever #90 tabs cyanocobalamin (vitamin B-12) 2,500 mg PO DAILY 05/01/19 07/16/24 History melatonin 5 mg PO BEDTIME 05/01/19 07/16/24 History alfuzosin 10 mg tablet,extended 10 mg PO DAILY #90 tabs 07/15/20 08/23/24 Rx release 24 hr omeprazole magnesium 20 mg 20 mg PO DAILY #90 tabs 10/29/20 07/16/24 Rx tablet,delayed release (Prilosec OTC) Resmed Airsense 11 CPAP #1 ea 05/25/22 07/16/24 History Subcutaneous Supplies Kit #12 ea 07/16/24 07/16/24 Rx atorvastatin 10 mg tablet 10 mg PO ONCE PM #90 tabs 07/16/24 08/23/24 Rx semaglutide 0.25 mg or 0.5 mg (2 0.25 mg (0.368 mL) SUBCUT QWEEK #9 07/16/24 08/23/24 Rx mg/3 mL) subcutaneous pen injector mL Allergies Allergy/AdvReac Type Severity Reaction Status Date / Time Penicillins [PENICILLINS] Allergy Severe ANAPHYLAXSI Verified 08/23/24 12:06 S Review of Systems Review of Systems ROS: Yes All systems reviewed with the patient and are negative except as otherwise documented Exam Vital Signs (past 8 hours): - 08/23/24 12:17 Temperature 97.8 F Pulse Rate 77 Respiratory Rate 14 Blood Pressure 164/81 H Pulse Oximetry 96 Oxygen Delivery Method Room Air Oxygen Delivery Method Room Air Narrative Exam Narrative: Gen: NAD, sitting comfortably in bed, appears well HEENT: Sclera are anicteric, head is normocephalic and atraumatic, trachea is midline. CV: RRR, no JVD Resp: clear to auscultation bilaterally, equal chest wall movement bilaterally Abd: soft, nontender, normoactive bowel sounds Ext: no edema, full range of motion Neuro: Cranial nerves II-XII grossly intact, no focal deficits Skin: No erythema or ecchymosis Assessment & Plan Assessment and plan (1) Rudolph's esophagus: Qualifiers: Rudolph's esophagus type: with dysplasia of unspecified degree Qualified Code(s): K22.719 - Rudolph's esophagus with dysplasia, unspecified Status: Chronic Assessment & Plan narrative: Risks, benefits and alternatives were explained including but not limited to perforation, bleeding pain. Patient agrees to proceed with EGD, possible biopsy, possible dilation. Time-Based Coding :: [TOTAL MINUTES] spent with patient and on the chart (including review of chart, obtaining history, exam, reviewing outside data, placing orders, documenting exam and treatment plan, and counseling patient) on [DATE].
--- NOTE | 2024-08-23 13:23 | PM.OP.EGD ---
Operative Date/Time/Diagnoses Date of procedure: 08/23/24 Time of procedure: 13:23 Pre-op diagnosis: Barretts, GERD Post-op diagnosis: same Procedure & Clinicians Study performed: EGD with biopsies of antrum, GE junction x4 Same procedure as scheduled: Yes Indications: Worsening reflux symptoms since starting semaglutide Surgeon: Chandana Strauss Procedure Notes SCOAP/Timeout: Performed Procedure in detail: Patient was brought into the endoscopy suite. Mac was induced. Patient was placed in left lateral decubitus position. Bite block placed. Gastroscope was placed through the mouth into the 2nd portion of the duodenal. No abnormalities were noted in the duodenal. There was some antral gastritis and biopsies were obtained. Retroflexed view showed small hiatal hernia. Z-line was noted to be 38 cm from the incisors. Biopsies of inflamed GE junction were performed x4 in 4 quadrants. There was no evidence of strictures, webs or vascular anomalies. Scope was removed. Sedation minutes: 9 Findings: Rudolph's esophagus and gastritis Post-procedure Recommendations: Reflux diet Follow up: as needed Disposition: PACU
[2024-08-23 13:28] VITALS: BP 117/76; PULSE 89; RESP 12; TEMP 37.2; O2SAT 94
[2024-08-23 13:34] VITALS: BP 112/70; PULSE 81; RESP 12; TEMP 37.1; O2SAT 97
[2024-08-23 13:39] VITALS: BP 107/60; PULSE 79; RESP 12; TEMP 36.5; O2SAT 97
== END 2024-08-23 14:07 | disposition home or self-care (01) ==
PROVIDERS: Surgery; Family Provider Family Medicine; PCP Family Medicine; Referring Provider Surgery; Visit Provider Surgery
PROC: 0DJ08ZZ Inspection of Upper Intestinal Tract, Via Natural or Artificial Opening Endoscopic (ICD-10-PCS; CPT 43239; principal; 2024-08-23 13:00)
DX: K22.70 Barrett's esophagus without dysplasia (principal); K21.9 Gastro-esophageal reflux disease without esophagitis; E66.9 Obesity, unspecified; E11.9 Type 2 diabetes mellitus without complications; Z79.85 Long-term (current) use of injectable non-insulin antidiabetic drugs; K29.70 Gastritis, unspecified, without bleeding
CPT/HCPCS: 43239; J2704

== ENCOUNTER → 2024-09-14 09:44 | Outpatient (CLI) | payer MEDICARE, OTHER, SELFPAY ==
--- NOTE | 2024-09-14 09:46 | DI.RAD.S_ITS ---
PROCEDURE: FL UPPER GI SERIES INDICATIONS: suspect esophageal spasms COMPARISON: None. FINDINGS: KUB: Preprocedural desizing machine back tender film demonstrates a normal bowel gas pattern. No suspicious abdominal calcifications. Visualized solid organ contours appear normal. Bony structures appear unremarkable. Esophagus: Esophageal mucosa is normal on air-contrast views. On single-contrast views, there is normal esophageal peristalsis. No strictures, extrinsic mass effects, or diverticula. There is a small sliding hiatal hernia. Moderate gastroesophageal reflux is seen with contrast reflux to mid esophageal lumen. There is slight delayed transit of a calibrated barium tablet through the esophagus. Stomach: The stomach is normally distensible, with normal rugal fold thickness. No mucosal masses or ulcers. Pylorus and duodenal bulb appear normal in morphology. Duodenal folds are normal in thickness as well. IMPRESSION: 1. Small sliding hiatal hernia with moderate gastroesophageal reflux noted during the study. 2. No intraluminal filling defects, high-grade stricture or diverticulum in the esophagus or stomach lumen. No gross ulceration is seen. Dictated by: Pierce Gordon M.D. on 09/14/2024 at 12:17 Approved by: Pierce Gordon M.D. on 09/14/2024 at 12:19
== END ==
PROVIDERS: Family Provider Family Medicine; PCP Family Medicine; Referring Provider Surgery; Visit Provider Surgery
DX: K44.9 Diaphragmatic hernia without obstruction or gangrene (principal); K22.4 Dyskinesia of esophagus
CPT/HCPCS: 74240

== ENCOUNTER → 2024-12-31 09:39 | Outpatient (CLI) | payer MEDICARE, OTHER, SELFPAY ==
[2024-12-31 10:51] LABS: Hemoglobin A1C% w Est Avg Glu 5.3 % (4.0-6.0)
== END ==
PROVIDERS: Family Provider Family Medicine; PCP Family Medicine; Referring Provider Family Medicine; Visit Provider Family Medicine
DX: R73.01 Impaired fasting glucose (principal); K22.70 Barrett's esophagus without dysplasia
CPT/HCPCS: 36415; 83036

== ENCOUNTER 2025-04-02 09:45 | Outpatient (RCR) | payer MEDICARE, OTHER, SELFPAY ==
--- NOTE | 2025-02-23 12:58 | PT.OIE ---
Current Diagnoses Unspecified disorder of synovium and tendon, left thigh (02/22/25) Past Medical History (Last Updated 02/19/25 @ 11:59 by Ronald Ramirez MD) Rudolph's esophagus Diffuse esophageal spasm Encounter for subsequent annual wellness visit (AWV) in Medicare patient Gastroparesis IFG (impaired fasting glucose) Impaired glucose regulation Morbid obesity Obesity (BMI 35.0-39.9 without comorbidity) Obstructive sleep apnea of adult Peyronie's disease Primary osteoarthritis of left hip Tendinopathy of left gluteus medius Past Surgical History (Last Reviewed 08/23/24 @ 13:04 by Chandana Strauss MD) Anesthesia Knee joint replacement status Visit Care Team Role Provider Type Diane Moore DO Family Provider Physician Primary Care Provider Specialty: [facility] Address: [address] [place] [address], [address] Email: [email or web address] Ronald Ramirez MD Attending Provider Physician Referring Provider Specialty: Orthopedics Orthopedic Surgery Address: [address] [place] [address], [facility] Fax: Email: [email or web address] Physical Therapy Initial Evaluation PT-OP-A Visit Information Start: 02/22/25 08:29 Freq: Status: Active Protocol: Document 02/22/25 08:29 BL (Rec: 02/22/25 18:15 BL Laptop) Out-Patient Physical Therapy Visit Information Visit Information Visit Type Initial Evaluation Visit Start Time 08:20 Visit Stop Time 09:00 Visit Number (1) /10 (PN by 03/24/25) Number of OXYGRAPH OPERATOR Visits 0 Evaluation Information Evaluation Date 02/22/25 PT-OP-C Subjective Start: 02/22/25 08:29 Freq: Status: Active Protocol: Document 02/22/25 08:29 BL (Rec: 02/22/25 18:15 BL Laptop) OP-PT Subjective Patient Comments Patient Comments Pt presents to the clinic this date with concerns for left anterior and lateral hip pain that has been long standing, however in the past several months has progressively worsened. Pt reports he went to see orthopedics for a possible injection and was encouraged to restart Physical Therapy and that he will benefit from consideration of a total hip replacement in the future. Pt reports his goals are to decrease pain and be able to continue his hobbies of riding motorcycles and working on his hot rods. Pt reports overall he feels his balance has been affected. Pt states after standing for 15-20 minutes he has quite a bit of pain and the only option he has found to relieve this is to sit down. Reports this pain as moderate. Reports pain as a dull achy that will progress to sharp. Patient Reported Same Progress Patient Questionnaires Lower Extremity Functional Scale LEFS Score 60 function PT-OP-H Neuro Start: 02/22/25 08:29 Freq: Status: Active Protocol: Document 02/22/25 08:29 BL (Rec: 02/22/25 18:15 BL Laptop) Sensation Evaluation Comments Summary Comments denies changes in sensation over past 6 months. Coordination Evaluation Comments Coordination denies changes in coordination over the past 6 months Comments PT-OP-J Posture/Palpation/Skin Start: 02/22/25 08:29 Freq: Status: Active Protocol: Document 02/22/25 08:29 BL (Rec: 02/22/25 18:15 BL Laptop) Posture Evaluation Comments Posture Comments Pt sits with hips abducted and posterior pelvic tilt, no obvious distress. Palpation Assessment Location L hip Palpation Details pt point tender with deep palpation to L anterior hip through hip flexor PT-OP-K Range of Motion Start: 02/22/25 08:29 Freq: Status: Active Protocol: Document 02/22/25 08:29 BL (Rec: 02/22/25 18:15 BL Laptop) Hip Goniometric Range of Motion Hip ROM Limitations Comments WFL babs, slight limitations into hip flexion bilateral, negative Kade test and SLR however tightness noted bilateral. Knee Goniometric Range of Motion Knee ROM Limitations Comments WFL babs PT-OP-M Strength Start: 02/22/25 08:29 Freq: Status: Active Protocol: Document 02/22/25 08:29 BL (Rec: 02/22/25 18:15 BL Laptop) Hip Strength Hip Manual Muscle Testing Right Flexion (L2) 4 Good Extension (S1) 4 Good Abduction 4+ Good+ Adduction 5 Normal External Rotation 4 Good Internal Rotation 4 Good Left Flexion (L2) 4 Good Extension (S1) 4 Good Abduction 4+ Good+ Adduction 5 Normal External Rotation 4 Good Internal Rotation 4 Good Knee Strength Knee Manual Muscle Testing Right Flexion (S2) 4 Good Extension (L3) 4 Good Left Flexion (S2) 4 Good Extension (L3) 4 Good PT-OP-Q Treatments Start: 02/22/25 08:29 Freq: Status: Active Protocol: Document 02/22/25 08:29 BL (Rec: 02/22/25 18:15 BL Laptop) Therapeutic Exercises Supine Exercises stretch Supine Exercise Name piriformis st Comments 3x 30 sec strength Supine Exercise Name bridge w/SL eccentric lower on L Comments 2x10 Standing Exercises stength Standing Exercise . Name Neuro Re-Education Treatment Balance Activities static stance Details . PT-OP-T Assessment and Plan Start: 02/22/25 08:29 Freq: Status: Active Protocol: Document 02/22/25 08:29 BL (Rec: 02/22/25 18:15 BL Laptop) Physical Therapy Assessment Rehab Potential Rehabilitation Good Potential Evaluation Complexity Number of Personal 1-2 Factors/ Comorbidities Number of Body 3 Systems Impaired Clinical Evolving Presentation at Evaluation Impairments Impairments Activity Tolerance,Balance,Functional Activities, Functional Mobility,Gait,Pain,Posture,ROM,Soft Tissue Mobility,Strength,Transfers Goals Three Prison Goal (LTG) pt will demo improved hip extension strength to 4+/5 by DC with MMT for improved hip stability with functional activities. Two Water Main Pipe Layer Goal (LTG) pt will report being able to work on his vehicles x 1 hr without increased pain by DC for improved quality of life. One Short Term Goal (STG pt will be ind with HEP within 2 visits in order to ) progress toward halfway therapy goals outside of therapy visits. Water Main Pipe Layer Goal (LTG) Pt will report being able to stand without increased in symptoms x 30 minutes by DC for improved activity endurance. Assessment Summary Assessment Pt presents with increased L hip pain that has been present for several years but has progressively worsened. Radiographic imaging revealed arthiritic changes, however pt is not ready at this time to under go a hip replacement. Pt demos difficulty standing for greater than 15-20 minutes without increasing his discomfort. Pt also demos decreased functional hip strength and limitations in ROM. Pts balance is also decreased. The above deficits are limiting this pts ability to complete ADLS and participate in hobbies. Pt will benefit from skilled Physical Therapy intervention for strength, endurance, and balance training in order to improve functional mobility and allow for increased quality of life. Physical Therapy Plan Frequency and Duration Frequency of 2x/Week Treatment Duration of 8 treatment (weeks) Plan of Care Start 02/22/25 Date Plan of Care End 04/17/25 Date Therapeutic Interventions Therapeutic Balance Training,Coordination Training,Gait Training, Interventions Home Exercise Program,Joint Mobilizations,Manual Therapy,Neuromuscular Re-education,Patient/Caregiver Education,Self-Care/Home Management,Sensory Integration ,Soft Tissue Mobilization,Taping,Therapeutic Activities ,Therapeutic Exercises Modalities Cold Pack/Ice Massage,Electric Stimulation,Hot Packs, Infrared Therapy,Iontophoresis,Ultrasound Next Visit Focus/Plan Next Note Type Treatment Note Next Visit Plan Progress HEP for LE strength and endurance training, Hip mobilizations, activity modification to avoid discomfort.
--- NOTE | 2025-02-23 12:59 | PT.OPPOC ---
Physical, Occupational & Speech Therapy At [facility] Current Diagnoses Unspecified disorder of synovium and tendon, left thigh (02/22/25) Visit Care Team Role Provider Type Diane Moore DO Family Provider Physician Primary Care Provider Specialty: Family Practice Address: [address] [place] [address], [facility] [address], [place], [address] Email: [email or web address] Ronald Ramirez MD Attending Provider Physician Referring Provider Specialty: Orthopedics Orthopedic Surgery Address: [address] [place] [address], [address] Fax: Email: [email or web address] Plan Of Care PT-OP-T Assessment and Plan Start: 02/22/25 08:29 Freq: Status: Active Protocol: Document 02/22/25 08:29 BL (Rec: 02/22/25 18:15 BL Laptop) Physical Therapy Assessment Rehab Potential Rehabilitation Good Potential Evaluation Complexity Number of Personal 1-2 Factors/ Comorbidities Number of Body 3 Systems Impaired Clinical Evolving Presentation at Evaluation Impairments Impairments Activity Tolerance,Balance,Functional Activities, Functional Mobility,Gait,Pain,Posture,ROM,Soft Tissue Mobility,Strength,Transfers Goals Three First Aid Trainer Goal (LTG) pt will demo improved hip extension strength to 4+/5 by DC with MMT for improved hip stability with functional activities. Two First Aid Trainer Goal (LTG) pt will report being able to work on his vehicles x 1 hr without increased pain by DC for improved quality of life. One Short Term Goal (STG pt will be ind with HEP within 2 visits in order to ) progress toward jail therapy goals outside of therapy visits. First Aid Trainer Goal (LTG) Pt will report being able to stand without increased in symptoms x 30 minutes by DC for improved activity endurance. Assessment Summary Assessment Pt presents with increased L hip pain that has been present for several years but has progressively worsened. Radiographic imaging revealed arthiritic changes, however pt is not ready at this time to under go a hip replacement. Pt demos difficulty standing for greater than 15-20 minutes without increasing his discomfort. Pt also demos decreased functional hip strength and limitations in ROM. Pts balance is also decreased. The above deficits are limiting this pts ability to complete ADLS and participate in hobbies. Pt will benefit from skilled Physical Therapy intervention for strength, endurance, and balance training in order to improve functional mobility and allow for increased quality of life. Physical Therapy Plan Frequency and Duration Frequency of 2x/Week Treatment Duration of 8 treatment (weeks) Plan of Care Start 02/22/25 Date Plan of Care End 04/17/25 Date Therapeutic Interventions Therapeutic Balance Training,Coordination Training,Gait Training, Interventions Home Exercise Program,Joint Mobilizations,Manual Therapy,Neuromuscular Re-education,Patient/Caregiver Education,Self-Care/Home Management,Sensory Integration ,Soft Tissue Mobilization,Taping,Therapeutic Activities ,Therapeutic Exercises Modalities Cold Pack/Ice Massage,Electric Stimulation,Hot Packs, Infrared Therapy,Iontophoresis,Ultrasound Next Visit Focus/Plan Next Note Type Treatment Note Next Visit Plan Progress HEP for LE strength and endurance training, Hip mobilizations, activity modification to avoid discomfort. Plan of Care Dates Plan of Care Start Date 02/22/25 Plan of Care End Date 04/17/25 Electronically Signed by: Klaus Cross PT 02/23/25 1922 If you are in agreement with this Plan of Care, please return a signed and dated copy. I have reviewed this Plan of Care and certify that the skilled therapy services above are required to meet the patient?s needs. Physician Signature Date Printed Name and Credentials Clinical Instructor Signature Printed Name and Credentials
--- NOTE | 2025-02-27 11:32 | PT.OTN ---
Current Diagnoses Unspecified disorder of synovium and tendon, left thigh (02/27/25) Physical Therapy Treatment Note PT-OP-A Visit Information Start: 02/22/25 08:29 Freq: Status: Active Protocol: Document 02/27/25 10:41 AB (Rec: 02/27/25 11:31 AB [id number]) Out-Patient Physical Therapy Visit Information Visit Information Visit Type Treatment Note Visit Note Access Code [email or web address] Visit Start Time 10:48 Visit Stop Time 11:30 Visit Number 2(PN by 03/24/25) Number of FITTING ROOM ASSOCIATE Visits 1 Evaluation Information Evaluation Date 02/22/25 PT-OP-C Subjective Start: 02/22/25 08:29 Freq: Status: Active Protocol: Document 02/27/25 10:41 AB (Rec: 02/27/25 11:31 AB [id number]) OP-PT Subjective Patient Comments Patient Comments Patient reports he is better, is doing the exercises and he is getting better. Patient reports walking 2 miles this morning with no pain, but sitting on motorcycle increases pain. PT-OP-H Neuro Start: 02/22/25 08:29 Freq: Status: Active Protocol: Document 02/22/25 08:29 BL (Rec: 02/22/25 18:15 BL Laptop) Sensation Evaluation Comments Summary Comments denies changes in sensation over past 6 months. Coordination Evaluation Comments Coordination denies changes in coordination over the past 6 months Comments PT-OP-J Posture/Palpation/Skin Start: 02/22/25 08:29 Freq: Status: Active Protocol: Document 02/22/25 08:29 BL (Rec: 02/22/25 18:15 BL Laptop) Posture Evaluation Comments Posture Comments Pt sits with hips abducted and posterior pelvic tilt, no obvious distress. Palpation Assessment Location L hip Palpation Details pt point tender with deep palpation to L anterior hip through hip flexor PT-OP-K Range of Motion Start: 02/22/25 08:29 Freq: Status: Active Protocol: Document 02/22/25 08:29 BL (Rec: 02/22/25 18:15 BL Laptop) Hip Goniometric Range of Motion Hip ROM Limitations Comments WFL babs, slight limitations into hip flexion bilateral, negative Kade test and SLR however tightness noted bilateral. Knee Goniometric Range of Motion Knee ROM Limitations Comments WFL babs PT-OP-M Strength Start: 02/22/25 08:29 Freq: Status: Active Protocol: Document 02/22/25 08:29 BL (Rec: 02/22/25 18:15 BL Laptop) Hip Strength Hip Manual Muscle Testing Right Flexion (L2) 4 Good Extension (S1) 4 Good Abduction 4+ Good+ Adduction 5 Normal External Rotation 4 Good Internal Rotation 4 Good Left Flexion (L2) 4 Good Extension (S1) 4 Good Abduction 4+ Good+ Adduction 5 Normal External Rotation 4 Good Internal Rotation 4 Good Knee Strength Knee Manual Muscle Testing Right Flexion (S2) 4 Good Extension (L3) 4 Good Left Flexion (S2) 4 Good Extension (L3) 4 Good PT-OP-Q Treatments Start: 02/22/25 08:29 Freq: Status: Active Protocol: Document 02/27/25 10:41 AB (Rec: 02/27/25 11:31 AB [id number]) Therapeutic Exercises Supine Exercises Mod Kade Stretch Supine Exercise Name HEP Side bilateral Reps/Minutes 60 sec Comments Verbal cues stretch Supine Exercise Name piriformis st Side bilateral Comments 60 X 2 sec strength Supine Exercise Name bridge w/SL eccentric lower on L Comments x10 Sidelying Exercises sidelying hip abd Sidelying Exercise HEP Name Side left Reps/Minutes X 15 Comments Verbal cues reverse clamshell Sidelying Exercise HEP Name Side left Equipment Used X 15 Comments Verbal cues clamshell Sidelying Exercise HEP Name Side left Reps/Minutes X10 Comments Verbal cues and additional cues for trunk position Manual Therapy Treatment Consent Patient gave verbal Yes consent for manual treatment Soft Tissue Mobilization L piriformis/glute Mobilization Type Cross-Friction,Rolling Intensity/Depth Moderate Body Position Sidelying Joint Mobilizations L AP and med to lat Grade III Body Position Hooklying Reps/Duration X 10 X 3 Comments AROM hip IR with med to lat mob PT-OP-S Aquatic Treatment Start: 02/22/25 08:29 Freq: Status: Active Protocol: Document 02/27/25 10:41 AB (Rec: 02/27/25 11:31 AB [id number]) PT-OP-T Assessment and Plan Start: 02/22/25 08:29 Freq: Status: Active Protocol: Document 02/27/25 10:41 AB (Rec: 02/27/25 11:31 AB [id number]) Physical Therapy Assessment Goals Three Residential Goal (LTG) pt will demo improved hip extension strength to 4+/5 by DC with MMT for improved hip stability with functional activities. Two Global Product Manager Goal (LTG) pt will report being able to work on his vehicles x 1 hr without increased pain by DC for improved quality of life. One Short Term Goal (STG pt will be ind with HEP within 2 visits in order to ) progress toward nursing home therapy goals outside of therapy visits. Global Product Manager Goal (LTG) Pt will report being able to stand without increased in symptoms x 30 minutes by DC for improved activity endurance. Assessment Summary Assessment Zeeshan reports having no pain end of session. Initiates sidelying glute strengthening with good form, but trunk does roll back with fatigue. Physical Therapy Plan Frequency and Duration Frequency of 2x/Week Treatment Duration of 8 treatment (weeks) Plan of Care Start 02/22/25 Date Plan of Care End 04/17/25 Date Next Visit Focus/Plan Next Note Type Treatment Note Next Visit Plan Progress HEP for LE strength and endurance training, Hip mobilizations, activity modification to avoid discomfort.
--- NOTE | 2025-03-07 09:03 | PT.OTN ---
Current Diagnoses Unspecified disorder of synovium and tendon, left thigh (03/07/25) Physical Therapy Treatment Note PT-OP-A Visit Information Start: 02/22/25 08:29 Freq: Status: Active Protocol: Document 03/07/25 08:17 BL (Rec: 03/07/25 09:03 BL Laptop) Out-Patient Physical Therapy Visit Information Visit Information Visit Type Treatment Note Visit Note Access Code [email or web address] Visit Start Time 09:15 Visit Stop Time 09:55 Visit Number (3) 3/10 (PN by 03/24/25) Number of MANAGER OF IT Visits 1 PT-OP-C Subjective Start: 02/22/25 08:29 Freq: Status: Active Protocol: Document 03/07/25 08:17 BL (Rec: 03/07/25 09:03 BL Laptop) OP-PT Subjective Patient Comments Patient Comments Pt presents to the clinic and reports he is doing well, states overall improvement in symptoms. Pt states the hip flexor strength seems to bother his back later in the day. PT-OP-H Neuro Start: 02/22/25 08:29 Freq: Status: Active Protocol: Document 02/22/25 08:29 BL (Rec: 02/22/25 18:15 BL Laptop) Sensation Evaluation Comments Summary Comments denies changes in sensation over past 6 months. Coordination Evaluation Comments Coordination denies changes in coordination over the past 6 months Comments PT-OP-J Posture/Palpation/Skin Start: 02/22/25 08:29 Freq: Status: Active Protocol: Document 02/22/25 08:29 BL (Rec: 02/22/25 18:15 BL Laptop) Posture Evaluation Comments Posture Comments Pt sits with hips abducted and posterior pelvic tilt, no obvious distress. Palpation Assessment Location L hip Palpation Details pt point tender with deep palpation to L anterior hip through hip flexor PT-OP-K Range of Motion Start: 02/22/25 08:29 Freq: Status: Active Protocol: Document 02/22/25 08:29 BL (Rec: 02/22/25 18:15 BL Laptop) Hip Goniometric Range of Motion Hip ROM Limitations Comments WFL babs, slight limitations into hip flexion bilateral, negative Kade test and SLR however tightness noted bilateral. Knee Goniometric Range of Motion Knee ROM Limitations Comments WFL babs PT-OP-M Strength Start: 02/22/25 08:29 Freq: Status: Active Protocol: Document 02/22/25 08:29 BL (Rec: 02/22/25 18:15 BL Laptop) Hip Strength Hip Manual Muscle Testing Right Flexion (L2) 4 Good Extension (S1) 4 Good Abduction 4+ Good+ Adduction 5 Normal External Rotation 4 Good Internal Rotation 4 Good Left Flexion (L2) 4 Good Extension (S1) 4 Good Abduction 4+ Good+ Adduction 5 Normal External Rotation 4 Good Internal Rotation 4 Good Knee Strength Knee Manual Muscle Testing Right Flexion (S2) 4 Good Extension (L3) 4 Good Left Flexion (S2) 4 Good Extension (L3) 4 Good PT-OP-Q Treatments Start: 02/22/25 08:29 Freq: Status: Active Protocol: Document 03/07/25 08:17 BL (Rec: 03/07/25 09:03 BL Laptop) Therapeutic Exercises Supine Exercises Mod Kade Stretch Supine Exercise Name HEP Side bilateral Reps/Minutes 60 sec Comments Verbal cues to pull R leg up toward chest to assist with low back symp stretch Supine Exercise Name piriformis st Side bilateral Comments 60 X 2 sec strength Supine Exercise Name bridge w/SL eccentric lower on L Comments x10 Sidelying Exercises sidelying hip abd Sidelying Exercise HEP Name Side left Reps/Minutes X 15 Comments Verbal cues reverse clamshell Sidelying Exercise HEP Name Side left Equipment Used X 15 Comments Verbal cues clamshell Sidelying Exercise HEP Name Side left Reps/Minutes X10 Comments Verbal cues and additional cues for trunk position Standing Exercises stength Standing Exercise squatting to chair, mini lunging, banded lat walking Name Equipment Used lvl 4 Comments pt PT-OP-S Aquatic Treatment Start: 02/22/25 08:29 Freq: Status: Active Protocol: Document 02/27/25 10:41 AB (Rec: 02/27/25 11:31 AB [id number]) PT-OP-T Assessment and Plan Start: 02/22/25 08:29 Freq: Status: Active Protocol: Document 03/07/25 08:17 BL (Rec: 03/07/25 09:03 BL Laptop) Physical Therapy Assessment Goals Three Correction Goal (LTG) pt will demo improved hip extension strength to 4+/5 by DC with MMT for improved hip stability with functional activities. Two Correction Goal (LTG) pt will report being able to work on his vehicles x 1 hr without increased pain by DC for improved quality of life. One Short Term Goal (STG pt will be ind with HEP within 2 visits in order to ) progress toward director long term care therapy goals outside of therapy visits. Correction Goal (LTG) Pt will report being able to stand without increased in symptoms x 30 minutes by DC for improved activity endurance. Assessment Summary Assessment Pt tolerates session well today, pt fatigued following session, demos improved hip mobility, continue to focus on posterolateral hip strengthening. Physical Therapy Plan Frequency and Duration Frequency of 2x/Week Treatment Duration of 8 treatment (weeks) Plan of Care Start 02/22/25 Date Plan of Care End 04/17/25 Date Next Visit Focus/Plan Next Note Type Treatment Note Next Visit Plan Progress HEP for LE strength and endurance training, Hip mobilizations, activity modification to avoid discomfort.
--- NOTE | 2025-03-13 12:40 | PT.OTN ---
Current Diagnoses Unspecified disorder of synovium and tendon, left thigh (03/13/25) Physical Therapy Treatment Note PT-OP-A Visit Information Start: 02/22/25 08:29 Freq: Status: Active Protocol: Document 03/13/25 11:31 BL (Rec: 03/13/25 12:39 BL Laptop) Out-Patient Physical Therapy Visit Information Visit Information Visit Type Treatment Note Visit Start Time 09:15 Visit Stop Time 09:55 Visit Number (4) 4/10 (PN by 03/24/25) Number of SALON CUSTOMER EXPERIENCE SPECIALIST Visits 1 PT-OP-C Subjective Start: 02/22/25 08:29 Freq: Status: Active Protocol: Document 03/13/25 11:31 BL (Rec: 03/13/25 12:39 BL Laptop) OP-PT Subjective Patient Comments Patient Comments Pt presents to the clinic and reports he is doing well, states it is difficult to get his HEP in more than 1x daily, feels increased pain in his L medial knee, also has noticed his hip discomfort has moved on his L hip. PT-OP-H Neuro Start: 02/22/25 08:29 Freq: Status: Active Protocol: Document 02/22/25 08:29 BL (Rec: 02/22/25 18:15 BL Laptop) Sensation Evaluation Comments Summary Comments denies changes in sensation over past 6 months. Coordination Evaluation Comments Coordination denies changes in coordination over the past 6 months Comments PT-OP-J Posture/Palpation/Skin Start: 02/22/25 08:29 Freq: Status: Active Protocol: Document 02/22/25 08:29 BL (Rec: 02/22/25 18:15 BL Laptop) Posture Evaluation Comments Posture Comments Pt sits with hips abducted and posterior pelvic tilt, no obvious distress. Palpation Assessment Location L hip Palpation Details pt point tender with deep palpation to L anterior hip through hip flexor PT-OP-K Range of Motion Start: 02/22/25 08:29 Freq: Status: Active Protocol: Document 02/22/25 08:29 BL (Rec: 02/22/25 18:15 BL Laptop) Hip Goniometric Range of Motion Hip ROM Limitations Comments WFL babs, slight limitations into hip flexion bilateral, negative Kade test and SLR however tightness noted bilateral. Knee Goniometric Range of Motion Knee ROM Limitations Comments WFL babs PT-OP-M Strength Start: 06/27/25 08:29 Freq: Status: Active Protocol: Document 02/22/25 08:29 BL (Rec: 02/22/25 18:15 BL Laptop) Hip Strength Hip Manual Muscle Testing Right Flexion (L2) 4 Good Extension (S1) 4 Good Abduction 4+ Good+ Adduction 5 Normal External Rotation 4 Good Internal Rotation 4 Good Left Flexion (L2) 4 Good Extension (S1) 4 Good Abduction 4+ Good+ Adduction 5 Normal External Rotation 4 Good Internal Rotation 4 Good Knee Strength Knee Manual Muscle Testing Right Flexion (S2) 4 Good Extension (L3) 4 Good Left Flexion (S2) 4 Good Extension (L3) 4 Good PT-OP-Q Treatments Start: 02/22/25 08:29 Freq: Status: Active Protocol: Document 03/13/25 11:31 BL (Rec: 03/13/25 12:39 BL Laptop) Therapeutic Exercises Supine Exercises stretch2 Supine Exercise Name IT band st. with leg pass over Comments pt reports feeling a slab puller greater trochanter bursa area strength Supine Exercise Name bridge w/SL eccentric lower on L Comments x10 Sidelying Exercises clamshell Sidelying Exercise HEP Name Side left Resistance lvl 4 band Reps/Minutes X10 Comments Verbal cues and additional cues for trunk position Standing Exercises stength Standing Exercise sit <>stand taps Name Resistance lvl 4 band PT-OP-S Aquatic Treatment Start: 02/22/25 08:29 Freq: Status: Active Protocol: Document 02/27/25 10:41 AB (Rec: 02/27/25 11:31 AB [id number]) PT-OP-T Assessment and Plan Start: 02/22/25 08:29 Freq: Status: Active Protocol: Document 03/13/25 11:31 BL (Rec: 03/13/25 12:39 BL Laptop) Physical Therapy Assessment Goals Three Ticket Dispenser Changer Goal (LTG) pt will demo improved hip extension strength to 4+/5 by DC with MMT for improved hip stability with functional activities. 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 One Short Term Goal (STG pt will be ind with HEP within 2 visits in order to ) progress toward terminal make up operator therapy goals outside of therapy visits. Ticket Dispenser Changer Goal (LTG) Pt will report being able to stand without increased in symptoms x 30 minutes by DC for improved activity endurance. Assessment Summary Assessment Pt tolerates session well today, discussed HEP for motorcycle trip and discussed continued focus on hip strengthening and stretching. Pt does demo pain with palpation over greater trochanter bursa. Physical Therapy Plan Frequency and Duration Frequency of 2x/Week Treatment Duration of 8 treatment (weeks) Plan of Care Start 02/22/25 Date Plan of Care End 04/17/25 Date Next Visit Focus/Plan Next Note Type Treatment Note Next Visit Plan Progress HEP for LE strength and endurance training, Hip mobilizations, activity modification to avoid discomfort.
--- NOTE | 2025-04-02 10:23 | PT.OTN ---
Current Diagnoses Unspecified disorder of synovium and tendon, left thigh (04/02/25) Physical Therapy Treatment Note PT-OP-A Visit Information Start: 02/22/25 08:29 Freq: Status: Active Protocol: Document 04/02/25 09:48 BL (Rec: 04/02/25 10:21 BL Laptop) Out-Patient Physical Therapy Visit Information Visit Information Visit Type Discharge Summary Visit Start Time 09:45 Visit Stop Time 10:25 Visit Number (5) 6/ (PN by 05/03/25) Number of OSTOMY NURSE Visits 0 PT-OP-C Subjective Start: 02/22/25 08:29 Freq: Status: Active Protocol: Document 04/02/25 09:48 BL (Rec: 04/02/25 10:23 BL Laptop) OP-PT Subjective Patient Comments Patient Comments Pt presents to the clinic this date and reports he is doing well, reports no pain over the past few weeks, has been walking more and workin in the garage without pain. PT-OP-H Neuro Start: 02/22/25 08:29 Freq: Status: Active Protocol: Document 02/22/25 08:29 BL (Rec: 02/22/25 18:15 BL Laptop) Sensation Evaluation Comments Summary Comments denies changes in sensation over past 6 months. Coordination Evaluation Comments Coordination denies changes in coordination over the past 6 months Comments PT-OP-J Posture/Palpation/Skin Start: 02/22/25 08:29 Freq: Status: Active Protocol: Document 02/22/25 08:29 BL (Rec: 02/22/25 18:15 BL Laptop) Posture Evaluation Comments Posture Comments Pt sits with hips abducted and posterior pelvic tilt, no obvious distress. Palpation Assessment Location L hip Palpation Details pt point tender with deep palpation to L anterior hip through hip flexor PT-OP-K Range of Motion Start: 02/22/25 08:29 Freq: Status: Active Protocol: Document 02/22/25 08:29 BL (Rec: 02/22/25 18:15 BL Laptop) Hip Goniometric Range of Motion Hip ROM Limitations Comments WFL babs, slight limitations into hip flexion bilateral, negative Kade test and SLR however tightness noted bilateral. Knee Goniometric Range of Motion Knee ROM Limitations Comments WFL babs PT-OP-M Strength Start: 02/22/25 08:29 Freq: Status: Active Protocol: Document 02/22/25 08:29 BL (Rec: 02/22/25 18:15 BL Laptop) Hip Strength Hip Manual Muscle Testing Right Flexion (L2) 4 Good Extension (S1) 4 Good Abduction 4+ Good+ Adduction 5 Normal External Rotation 4 Good Internal Rotation 4 Good Left Flexion (L2) 4 Good Extension (S1) 4 Good Abduction 4+ Good+ Adduction 5 Normal External Rotation 4 Good Internal Rotation 4 Good Knee Strength Knee Manual Muscle Testing Right Flexion (S2) 4 Good Extension (L3) 4 Good Left Flexion (S2) 4 Good Extension (L3) 4 Good PT-OP-Q Treatments Start: 02/22/25 08:29 Freq: Status: Active Protocol: Document 04/02/25 09:48 BL (Rec: 04/02/25 10:21 BL Laptop) Therapeutic Exercises Supine Exercises stretch2 Supine Exercise Name IT band st. 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 a thread pulling machine attendant greater trochanter bursa area Mod Kade Stretch Supine Exercise Name HEP (reviewed for home) Side bilateral Reps/Minutes 60 sec Comments Verbal cues to pull R leg up toward chest to assist with low back symp Sidelying Exercises reverse clamshell Sidelying Exercise HEP (reviewed for home HEP) Name Side left Equipment Used X 15 Comments Verbal cues Standing Exercises stength Standing Exercise lateral stepping with band Name Resistance lvl 3 band Comments 2x10' PT-OP-T Assessment and Plan Start: 02/22/25 08:29 Freq: Status: Active Protocol: Document 04/02/25 09:48 BL (Rec: 04/02/25 10:21 BL Laptop) Physical Therapy Assessment Goals Three Food And Beverage Server Goal (LTG) pt will demo improved hip extension strength to 4+/5 by DC with MMT for improved hip stability with functional activities. (Goal Met) demos 4+/5 babs hip extension strength this date. 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 (Goal Met): pt reports he is able to work uptot 2 hours at time without discomfort. One Short Term Goal (STG pt will be ind with HEP within 2 visits in order to ) progress toward penitentiary therapy goals outside of therapy visits. (Goal Met) Detention Goal (LTG) Pt will report being able to stand without increased in symptoms x 30 minutes by DC for improved activity endurance. (Goal Met) Pt states he is able to stand x 1 .5-2 hrs without increase in symptoms this date. Assessment Summary Assessment Pt presents to the clinic this date and reports he is doing very well and feels he is ready for DC. Reports he has been walking more and is able to work at home without increased pain. Pt has met all therapy goals this date and has made excellent progress in skilled Physical Therapy intervention demoing improved strength and pain control. Pts gait pattern has also improved. Plan to DC pt this date. Physical Therapy Plan Frequency and Duration Frequency of DC PT Treatment
== END 2025-04-03 11:14 | disposition home or self-care (01) ==
LOC: PHYS 09:45
PROVIDERS: Family Provider Family Medicine; PCP Family Medicine; Referring Provider Orthopaedic Surgery Adult Reconstructive Orthopaedic Surgery; Visit Provider Orthopaedic Surgery Adult Reconstructive Orthopaedic Surgery
DX: M67.952 Unspecified disorder of synovium and tendon, left thigh (principal)
CPT/HCPCS: 97110; 97140; 97162

== ENCOUNTER → 2025-08-12 09:02 | Outpatient (CLI) | payer MEDICARE, OTHER, SELFPAY ==
[2025-08-12 10:18] LABS: Hemoglobin A1C% w Est Avg Glu 5.2 % (4.0-6.0)
[2025-08-12 10:28] LABS: Alanine Aminotransferase 25 IU/L (<50); Albumin 4.1 g/dL (3.5-5.0); Albumin Globulin Ratio 1.6 (1.0-2.8); Alkaline Phosphatase 60 U/L (38-126); Blood Urea Nitrogen 14 mg/dL (9-20); Calcium 9.5 mg/dL (8.4-10.2); Carbon Dioxide 24 mmol/L (22-32); Chloride 104 mmol/L (98-107); Cholesterol 134 mg/dL (140-199); Estimated Glomerular Filt Rate > 60 mL/min (>60); Globulin 2.5 g/dL (1.7-4.1); Glucose 92 mg/dL (70-99); HDL Cholesterol 46 mg/dL (40-60); HEMOLYSIS 16 (0-50); Potassium 4.9 mmol/L (3.4-5.1); Sodium 137 mmol/L (137-145); Total Protein 6.6 g/dL (6.3-8.2); Triglycerides 94 mg/dL (35-150)
== END ==
PROVIDERS: Family Provider Family Medicine; PCP Family Medicine; Referring Provider Family Medicine; Visit Provider Family Medicine
DX: Z00.00 Encounter for general adult medical examination without abnormal findings (principal); R73.01 Impaired fasting glucose; E66.9 Obesity, unspecified
CPT/HCPCS: 36415; 80053; 80061; 83036